=== PATIENT | female | born 1945 | race Caucasian/White ===

== ENCOUNTER → 2017-04-17 | Outpatient (CLI) | payer OTHER, MEDICARE ==
[~2017-04-17] MED LIST: ACYC400T PO; ANAS1TAB19 PO; ATV5 PO; BIOT1CAP3 PO; CALCIUM + D600 M1 PO; DILT-203 PO; IBUP-1450 PO; MULT-513 PO
--- NOTE | 2017-04-17 12:04 | DIAGNOSTIC IMAGING REPORT ---
CHEST 2 VIEWS ROUTINE CLINICAL HISTORY: 71 years-old Female presenting with COUGH, RECENT URI. TECHNIQUE: PA and lateral views of the chest were obtained. COMPARISON: 06/18/2016. FINDINGS: S shaped scoliotic curvature of the thoracolumbar spine resulting in stable curvature of the cardiomediastinal silhouette. Surgical clips project over the right lower lung. Lungs and pleural spaces clear. Lungs mildly hyperinflated. Radiodensities projecting over the epigastrium may be external to the patient. IMPRESSION: 1. No acute cardiopulmonary disease. Electronically signed by: Yunior Martin M.D. 04/17/2017 12:03 PM Dictated Date/Time: 04/17/2017 12:00 PM
== END | disposition home or self-care (01) ==
LOC: C.RADBC 11:14
PROVIDERS: ATTEND Nurse Practitioner
DX: Z87.09 Personal history of other diseases of the respiratory system (principal); R05 Cough

== ENCOUNTER 2017-12-06 08:00 | Emergency (ER) | payer OTHER, MEDICARE ==
[~2017-12-06] VITALS: Ht 163.8 cm; Wt 58.5 kg
[2017-12-06 08:02] VITALS: Ht 163.8 cm; Wt 58.5 kg
--- NOTE | 2017-12-06 08:31 | DIAGNOSTIC IMAGING REPORT ---
CT SCAN OF THE BRAIN WITHOUT IV CONTRAST CLINICAL HISTORY: Fall. COMPARISON STUDY: No priors. TECHNIQUE: Unenhanced axial CT scan of the brain is performed from the vertex to the skull base. A dose lowering technique was utilized adhering to the principles of ALARA. CT DOSE: 614.27 mGy.cm FINDINGS: Brain parenchyma: There are age-related involutional changes noting minimal subcortical and periventricular microangiopathic change. There is no hemorrhage, mass effect, or evidence of acute territorial ischemia by CT criteria. Davis-white matter is preserved. No extra-axial fluid collection is seen. Ventricles, sulci, cisterns: Prominent secondary to involutional change. Intracranial vasculature: There is mild atherosclerotic calcification of the cavernous carotid arteries. Calvarium: The skeletal structures are osteopenic. There is no depressed calvarial fracture. Soft tissues: There is minimal right frontoparietal scalp contusion. Sinuses and mastoids: The visualized paranasal sinuses are clear. The mastoid air cells are well pneumatized. Orbits: The bony orbits are grossly intact. There are bilateral ocular lens implants. IMPRESSION: There is no hemorrhage, mass effect, or evidence of acute territorial ischemia by CT criteria. Electronically signed by: Vladimir Arias M.D. 12/06/2017 8:29 AM Dictated Date/Time: 12/06/2017 8:26 AM
--- NOTE | 2017-12-06 08:48 | DIAGNOSTIC IMAGING REPORT ---
RIGHT ANKLE 3 VIEWS HISTORY: Right ankle pain. Fall/ankle injury COMPARISON: None. FINDINGS: Mildly displaced fracture at the distal shaft of the fifth metatarsal. Small old avulsion fracture at the dorsal aspect of the anterior talus. The distal tibia and fibula are intact. Small plantar heel spur. Soft tissue swelling within the ankle. No dislocation. No radiopaque foreign bodies. IMPRESSION: 1. Mildly displaced fracture at the distal shaft of the fifth metatarsal. 2. No acute fracture or dislocation within the right ankle. 3. Small old avulsion fracture at the dorsal aspect of the anterior talus. Electronically signed by: Evelio Ledezma M.D. 12/06/2017 8:47 AM Dictated Date/Time: 12/06/2017 8:44 AM
[2017-12-06] MEDS ORDERED: LORA-741 PO (08:58)
[2017-12-06] MEDS ORDERED: LSN20 PO (08:59)
--- NOTE | 2017-12-06 09:25 | EMERGENCY ROOM VISIT NOTE ---
ED Visit Note First contact with patient: 08:07 I have seen and examined this patient with Bhumi Montgomery and generally agree with the treatment plan as discussed. Problem List Medical Problems: (1) Breast cancer Status: Chronic (2) Malignant neoplasm of upper-inner quadrant of female breast Permanent Comment: Soft detected right breast mass Status post biopsy revealing lobular carcinoma status post lumpectomy and sentinel lymph node biopsy stage pT2 pN1aM0 Estrogen receptor positive, progesterone receptor positive, HER-2/roxanne equivocal Dose dense chemotherapy 4 cycles of Adriamycin and Cytoxan followed by 4 cycles of Taxol treated with Herceptin that continued until October 2014 Status post completion of radiation therapy 03/08/2014 received 5040 cGy Status: Resolved (3) Sinus tachycardia Status: Chronic (4) tenderness back Status: Chronic Current/Historical Medications Scheduled , 600 MG PO QAM Anastrozole (Arimidex), 1 MG PO DAILY Biotin (Biotin), 5,000 MCG PO QAM Diltiazem Hcl Coated Beads (Diltiazem Cd), 240 MG PO QAM Lisinopril (Lisinopril), 20 MG PO DAILY Multivitamins/Minerals (Mvi With Minerals), 1 TAB PO QAM Scheduled PRN Acyclovir (Acyclovir), 1 TAB PO TID PRN Ibuprofen (Motrin), 600 MG PO TID PRN for Pain Lorazepam (Ativan), 0.5 MG PO TID PRN for Anxiety Allergies Coded Allergies: Bacitracin (Verified Allergy, Intermediate, erythema, 12/06/17) Neomycin (Verified Allergy, Intermediate, erythema, 12/06/17) Polymyxin B (Verified Allergy, Intermediate, erythema, 12/06/17) Codeine (Verified Allergy, Unknown, ., 12/06/17) Adhesives (Verified Adverse Reaction, Intermediate, PRURITIS, 12/06/17) Vital Signs Date Time Temp Pulse Resp B/P (MAP) Pulse Ox O2 Delivery O2 Flow Rate FiO2 12/06/17 08:02 37.0 86 16 138/64 99 Room Air Departure Information Referrals Ian Dela Cruz M.D. (PCP) Patient Instructions My [facility]
--- NOTE | 2017-12-06 09:33 | EMERGENCY ROOM VISIT NOTE ---
History First contact with patient: 08:07 Chief Complaint: FALL Stated Complaint: FELL AND TWISTED ANKLE, HIT HEAD History of Present Illness The patient is a 72 year old female who presents to the Emergency Room with complaints of having a fall just prior to arrival. The patient states that she missed the bottom step and twisted her right ankle. She states she fell down and the right side of her head hit her rocking chair. The patient denies any dizziness or visual changes prior to the fall. The patient denies any loss of consciousness. The patient currently denies any headache, dizziness or visual changes. The patient denies any neck or back pain. The patient denies any head pain. She is mainly complaining of right ankle pain. She denies any numbness and tingling in her toes. The patient denies any knee or hip injury. The patient takes a baby aspirin daily. She is not on any other blood thinners. Review of Systems 10 system review was performed and was negative unless stated otherwise history of present illness. Past Medical/Surgical History Medical Problems: (1) Bilateral breast cancer (2) Breast cancer (3) Malignant neoplasm of upper-inner quadrant of female breast (4) Sinus tachycardia (5) tenderness back Social History Smoking Status: Former Smoker Current/Historical Medications Scheduled , 600 MG PO QAM Anastrozole (Arimidex), 1 MG PO DAILY Biotin (Biotin), 5,000 MCG PO QAM Diltiazem Hcl Coated Beads (Diltiazem Cd), 240 MG PO QAM Lisinopril (Lisinopril), 20 MG PO DAILY Multivitamins/Minerals (Mvi With Minerals), 1 TAB PO QAM Scheduled PRN Acyclovir (Acyclovir), 1 TAB PO TID PRN Ibuprofen (Motrin), 600 MG PO TID PRN for Pain Lorazepam (Ativan), 0.5 MG PO TID PRN for Anxiety Physical Exam Vital Signs Date Time Temp Pulse Resp B/P (MAP) Pulse Ox O2 Delivery O2 Flow Rate FiO2 12/06/17 08:02 37.0 86 16 138/64 99 Room Air Physical Exam GENERAL: 72-year-old white female appears in no acute distress. MENTAL Status: Alert and oriented 3. HEAD: Small area of ecchymosis noted to frontal to temporal region. Remainder of head is unremarkable. EYES: PERRLA. EOMs intact. EARS: Canals clear. TMs without hemotympanum NECK: Supple, no lymphadenopathy noted. No carotid bruits noted. LUNGS: Clear auscultation without wheezes rales or rhonchi. CARDIAC: Regular rate and rhythm without murmur. Pulses is full and equal throughout. SPINE: Entire spine nontender to palpation. NEURO:Cranial nerves two through 12 intact. Cerebellar function intact with [id number]. Fine motor intact with alternating finger motions. RIGHT ANKLE: No gross bony deformity noted. Edema noted over the lateral malleoli where she is tender to palpation. She is also tender to palpation over the anterior aspect of the ankle joint. Limited range of motion secondary to pain. Sensation is intact. Medical Decision & Procedures ER Provider Diagnostic Interpretation: RIGHT ANKLE 3 VIEWS HISTORY: Right ankle pain. Fall/ankle injury COMPARISON: None. FINDINGS: Mildly displaced fracture at the distal shaft of the fifth metatarsal. Small old avulsion fracture at the dorsal aspect of the anterior talus. The distal tibia and fibula are intact. Small plantar heel spur. Soft tissue swelling within the ankle. No dislocation. No radiopaque foreign bodies. IMPRESSION: 1. Mildly displaced fracture at the distal shaft of the fifth metatarsal. 2. No acute fracture or dislocation within the right ankle. 3. Small old avulsion fracture at the dorsal aspect of the anterior talus. Electronically signed by: Evelio Ledzema M.D. 12/06/2017 8:[address] SCAN OF THE BRAIN WITHOUT IV CONTRAST CLINICAL HISTORY: Fall. COMPARISON STUDY: No priors. TECHNIQUE: Unenhanced axial CT scan of the brain is performed from the vertex to the skull base. A dose lowering technique was utilized adhering to the principles of ALARA. CT DOSE: 614.27 mGy.cm FINDINGS: Brain parenchyma: There are age-related involutional changes noting minimal subcortical and periventricular microangiopathic change. There is no hemorrhage, mass effect, or evidence of acute territorial ischemia by CT criteria. Davis-white matter is preserved. No extra-axial fluid collection is seen. Ventricles, sulci, cisterns: Prominent secondary to involutional change. Intracranial vasculature: There is mild atherosclerotic calcification of the cavernous carotid arteries. Calvarium: The skeletal structures are osteopenic. There is no depressed calvarial fracture. Soft tissues: There is minimal right frontoparietal scalp contusion. Sinuses and mastoids: The visualized paranasal sinuses are clear. The mastoid air cells are well pneumatized. Orbits: The bony orbits are grossly intact. There are bilateral ocular lens implants. IMPRESSION: There is no hemorrhage, mass effect, or evidence of acute territorial ischemia by CT criteria. Electronically signed by: Vladimir Arias M.D. 12/06/2017 8:29 AM ED Course The patient was evaluated. Patient declined any pain medication. X-ray of the right ankle was ordered and interpreted by the radiologist the x-ray revealed a fracture of the distal right fifth metatarsal.. A CT of the head was ordered interpreted by the radiologist as above without any acute findings. The patient was informed of all findings. The patient was independently evaluated by Dr. Pate who agrees with treatment plan. The patient was placed in a postop shoe and given a walker. The sample case porter called Dr. Garcia's office to see if they could see her today in the office. She has been seen by them in the past. They were willing to see the patient immediately therefore she was discharged with instructions to go directly to their office. Medical Decision Differential diagnosis include intracranial bleed, head contusion, concussion Differential diagnosis include ankle fracture, blood fracture, foot contusion, ankle sprain [place] Drug Monitoring Program Search Results: patient reviewed within database Medication Reconcilliation Current Medication List: was personally reviewed by fl Blood Pressure Screening Patient's blood pressure: Normal blood pressure Impression Primary Impression: Fracture of fifth metatarsal bone of right foot Additional Impression: Head contusion Departure Information Dispostion Home / Self-Care Condition GOOD Referrals Ian Dela Cruz M.D. (PCP) Darius Barrera M.D. Forms HOME CARE DOCUMENTATION FORM, IMPORTANT VISIT INFORMATION Patient Instructions My [facility] Additional Instructions Go directly to Dr. Garcia's office for further evaluation and treatment. Problem Qualifiers Primary Impression: Fracture of fifth metatarsal bone of right foot Encounter type: initial encounter Fracture type: closed Fracture alignment : nondisplaced Qualified Codes: S92.354A - Nondisplaced fracture of fifth metatarsal bone, right foot, initial encounter for closed fracture Additional Impression: Head contusion Encounter type: initial encounter Contusion of head detail: scalp Qualified Codes: S00.03XA - Contusion of scalp, initial encounter
[2017-12-06 09:46] VITALS: BP 138/64; PULSE 86; TEMP 37; O2SAT 99
== END 2017-12-06 09:47 | disposition home or self-care (01) ==
LOC: C.EDB 08:01 → C.EDA 09:47
DX: S92.354A Nondisplaced fracture of fifth metatarsal bone, right foot, initial encounter for closed fracture (principal); S00.03XA Contusion of scalp, initial encounter; W10.9XXA Fall (on) (from) unspecified stairs and steps, initial encounter; X50.1XXA Overexertion from prolonged static or awkward postures, initial encounter; W22.8XXA Striking against or struck by other objects, initial encounter; Z85.3 Personal history of malignant neoplasm of breast; Z87.891 Personal history of nicotine dependence; Z98.890 Other specified postprocedural states

== ENCOUNTER 2019-05-13 08:22 | Inpatient (IN) ==
--- NOTE | 2019-04-07 16:31 | PAT Medication Instructions ---
Medication Instructions Date of Service April 07, 2019 Home Medications anastrozole 1 mg PO QAM biotin 10,000 mcg PO QAM calcium carbonate-vitamin D3 1 cap PO QAM diclofenac sodium 50 mg PO TID diltiazem HCl 240 mg PO QAM docusate sodium [Stool Softener] 100 mg PO QPM geriatric [id number] [Spectravite Senior] 1 tab PO QAM lisinopril 20 mg PO QAM lorazepam 1 mg PO DAILY PRN polyethylene glycol 3350 [Miralax] 17 g PO UD ASK your surgeon for instructions diclofenac sodium 50 mg PO TID ASK your prescriber and surgeon anastrozole 1 mg PO QAM DO NOT take the morning of surgery biotin 10,000 mcg PO QAM calcium carbonate-vitamin D3 1 cap PO QAM geriatric [id number] [Spectravite Senior] 1 tab PO QAM lisinopril 20 mg PO QAM polyethylene glycol 3350 [Miralax] 17 g PO UD Take morning of surgery With a small sip of water, OTHERWISE NOTHING TO EAT OR DRINK AFTER MIDNIGHT: diltiazem HCl 240 mg PO QAM lorazepam 1 mg PO DAILY PRN (if needed) Take evening before surgery docusate sodium [Stool Softener] 100 mg PO QPM lorazepam 1 mg PO DAILY PRN (if needed) polyethylene glycol 3350 [Miralax] 17 g PO UD (if needed) Other Notes If you have any questions please call us at [phone] or [phone] or [phone] or [phone]
--- NOTE | 2019-04-08 14:12 | Anesthesiology Consultation ---
Date of Service April 08, 2019 Assessment & Plan (1) Encounter for pre-operative examination: Possible difficult spinal 2/2 scoliosis. On exam, scoliosis and scar from intervention (when pt was age 10) appear above level needed for SAB. Pt educated regarding SAB vs general anesthesia. Chart Review Chart Review: Acceptable Risk for Surgery and Patient seen in Pre Admission Testing Teaching & Discussion Instructed NPO after midnight before surgery, except medications with 15 cc of water. Medication instructions provided according to the PAT guidelines. History Surgery Operation Date: 05/13/19 07:15 Proposed Procedures p Left Total Hip Arthroplasty - Darius Barrera MD Height/Weight Height: 5 ft 4.6 in Weight: 60.4 kg Allergies Allergy/AdvReac Type Severity Reaction Status Date / Time bacitracin Allergy Intermediate erythema Verified 04/03/19 15:28 neomycin Allergy Intermediate erythema Verified 04/03/19 15:28 polymyxin B Allergy Intermediate erythema Verified 04/03/19 15:28 codeine Allergy Unknown . Verified 04/03/19 15:28 adhesive AdvReac Intermediate PRURITIS Verified 04/03/19 15:28 Medications Home Medications Medication Instructions Recorded Confirmed Last Taken anastrozole 1 mg PO QAM 04/03/19 04/03/19 Unknown biotin 10,000 mcg PO QAM 04/03/19 04/03/19 Unknown calcium carbonate-vitamin D3 1 cap PO QAM 04/03/19 04/03/19 Unknown [Calcium 600 + D(3)] diclofenac sodium 50 mg PO TID 04/03/19 04/03/19 Unknown diltiazem HCl 240 mg PO QAM 04/03/19 04/03/19 Unknown docusate sodium [Stool Softener] 100 mg PO QPM 04/03/19 04/03/19 Unknown geriatric [id number] 1 tab PO QAM 04/03/19 04/03/19 Unknown [Spectravite Senior] lisinopril 20 mg PO QAM 04/03/19 04/03/19 Unknown lorazepam 1 mg PO DAILY PRN 04/03/19 04/03/19 Unknown polyethylene glycol 3350 [Miralax] 17 g PO UD 04/03/19 04/03/19 Unknown acetaminophen [Arthritis Pain 650 mg PO Q8 PRN 04/08/19 04/08/19 Unknown Reliever] alendronate [Fosamax] 70 mg PO WK 04/08/19 04/08/19 Unknown ranitidine HCl [Acid Optical Instrument Repairer 150 mg PO DAILY 04/08/19 04/08/19 Unknown (ranitidine)] Past Medical History Medical History Acid reflux Anxiety Constipation HTN (hypertension) History of breast cancer S/P LUMPECTOMY X 2. + CHEMO/RADTION History of melanoma Internal hemorrhoid Osteoarthritis Scoliosis Thoracic, s/p corrective surgery in 1950s Exercise / Class Metabolic Activity II 4-5 Yardwork/Stairs/Walk up hill (denies CP or SOB with 1 FOS) Past Surgical History Surgical History H/O wisdom tooth extraction History of cataract surgery History of colonoscopy History of dilatation and curettage History of left breast biopsy History of lumpectomy of left breast History of lumpectomy of right breast History of melanoma excision History of removal of cyst RT ELBOW History of right breast biopsy History of spinal fusion LUMBAR/THORACIC. s, to correct scoliosis. History of tonsillectomy and adenoidectomy History of tooth extraction History of tubal ligation Past Anesthesia History No Hx of Anesthesia Complications and No Family Hx of Anesthesia Complications PT REPORTS SYNCOPE FOLLOWING CHILDBIRTH (EPIDURAL) -- WAS ON THE DAY FOLLOWING DELIVERY, NOT IMMEDIATE REACTION TO EPIDURAL. History of PONV No Hx of PONV and No Hx of Motion Sickness Social History Smoking Status: Former smoker Smoking cigarettes per day: QUIT 40 YEARS AGO Do You Dip or Chew Tobacco: No Hx Alcohol Use: Yes Alcohol type: wine alcohol intake frequency: holidays/special occasions only Hx Substance Use: No substance use type: does not use Review of Systems Pt denies any recent chest pain, shortness of breath, palpitations, cough, fever or URI. Physical Exam Vital Signs BP: 145/77 P: 78bpm SPO2: 98% RA T: 98.2 F R: 16 ENMT Mouth: + dental restorations (few crowns); no chipped teeth and no loose teeth Thyromental Distance: > or= 3.5 Finger Breadths (3.5) Mallampati Class: II Neck normal visual inspection and + limited neck extension (mildly limited, denies neck pain) Respiratory normal respiratory effort Auscultation: lungs clear to auscultation bilaterally Cardiovascular Rate/Rhythm: regular rate and regular rhythm Heart Sounds: no murmur Extremities: no edema Musculoskeletal Spine: + scoliosis ~12 inch scar down midline thoracic area. Asymmetry of thoracic spine/shoulders. Scoliosis appears primarily above lumbar area. Testing Laboratory Results 04/08/19 14:30 04/08/19 14:30 PT 10.8 Seconds (9.0-12.0) 04/08/19 14:30 INR 1.1 (0.9-1.1) 04/08/19 14:30 APTT 23.6 Seconds (21.0-31.0) 04/08/19 14:30 Urine Color Yellow 04/08/19 14:30 Urine Appearance Clear (Clear) 04/08/19 14:30 Urine pH 5.5 (4.5-7.5) 04/08/19 14:30 Ur Specific [place] 1.018 (1.000-1.030) 04/08/19 14:30 Urine Protein Negative (Negative) 04/08/19 14:30 Urine Glucose (UA) Negative (Negative) 04/08/19 14:30 Urine Ketones Negative (Negative) 04/08/19 14:30 Urine Nitrite Negative (Negative) 04/08/19 14:30 Ur Leukocyte Esterase Negative (Negative) 04/08/19 14:30 Blood Type AB Positive 04/08/19 14:30 Antibody Screen NEGATIVE 04/08/19 14:30 Electrocardiogram Date: 04/08/19 Findings: + NSR @ (71) No significant change from 2003 EKG. Chest X-Ray Date: 04/08/19 FINDINGS: PA and lateral chest radiographs are compared to study dated 04/17/2017. Correlation is made with chest CT dated 07/17/2013. The cardiomediastinal silhouette is unremarkable. Chronic interstitial thickening is similar to previous. No airspace consolidation or pleural effusion is identified. There is no pneumothorax. The the skeletal structures are osteopenic. Degenerative change and moderate to severe scoliosis are noted in the thoracic spine. IMPRESSION: No active disease in the chest. Echocardiogram Date: 11/11/14 EF: 60% Limited to the study only to evaluate LV function during chemotherapy. Normal LV size and systolic function with no regional wall motion abnormalities. EF 60%. No LVH. Grade 1 diastolic dysfunction and left ventricle. Normal left atrial filling pressures suggested. Stress Test Date: 07/06/16 Negative stress EKG and echo for ischemia at 96% MPHR. Above average exercise tolerance for age and gender, 132% of predicted, achieving 7 METS. Baseline LVEF 60%.
--- NOTE | 2019-04-08 15:00 | XRay Report ---
TWO VIEW CHEST CLINICAL HISTORY: Preoperative examination. FINDINGS: PA and lateral chest radiographs are compared to study dated 04/17/2017. Correlation is made with chest CT dated 07/17/2013. The cardiomediastinal silhouette is unremarkable. Chronic interstiti al thickening is similar to previous. No airspace consolidation or pleural effusion is identified. Th ere is no pneumothorax. The the skeletal structures are osteopenic. Degenerative change and moderate to severe scoliosis are noted in the thoracic spine. IMPRESSION: No active disease in the chest. Electronically signed by: Vladimir Arias M.D. 04/08/2019 2:58 PM
[2019-04-08 15:15] LABS: Basophils # (auto) 0.02 K/uL (0-0.2); Basophils % (auto) 0.2 %; Eosinophils # (auto) 0.12 K/uL (0-0.5); Eosinophils % (auto) 1.4 %; Hematocrit (blood only) 35.1 % (37-47); Hemoglobin 11.6 g/dL (12.0-16.0); Immature Granulocytes # (auto) 0.02 K/uL (0.00-0.02); Immature Granulocytes % (auto) 0.2 %; Lymphocytes % (auto) 27.1 %; Mean Corpuscular Volume 84.4 fL (80-100); Mean Platelet Volume 9.5 fL (7.4-10.4); Monocytes % (auto) 5.9 %; Neutrophils # (auto) 5.52 K/uL (1.4-6.5); Neutrophils % (auto) 65.2 %; Platelet Count 297 K/uL (130-400); RDW Coefficient of Variation 13.9 % (11.5-14.5); RDW Standard Deviation 42.6 fL (36.4-46.3); Red Blood Count 4.16 M/uL (4.2-5.4); White Blood Count 8.48 K/uL (4.8-10.8)
[2019-04-08 15:21] LABS: BUN Creatinine Ratio 18.1 (10-20); Calcium 9.3 mg/dl (8.5-10.1); Creatinine Clr Calc Pharmacy 43.5 ml/min; Est GFR (African American) 64.6; Est GFR (Non-African American) 55.7; Potassium 4.8 mmol/L (3.5-5.1)
[2019-04-08 15:30] LABS: Appearance Urine Clear (Clear); Bilirubin Urine Negative (Negative); Blood Urine Negative (Negative); Color Urine Yellow; Glucose Urine UA Negative (Negative); Ketones Urine Negative (Negative); Leukocyte Esterase Urine Negative (Negative); Nitrite Urine Negative (Negative); Protein Urine Negative (Negative); Specific Gravity Urine 1.018 (1.000-1.030); Urobilinogen Urine Negative (Negative); pH Urine 5.5 (4.5-7.5)
[2019-04-08 15:36] LABS: INR 1.1 (0.9-1.1); Partial Thromboplastin Ratio 0.9; Partial Thromboplastin Time 23.6 Seconds (21.0-31.0); Prothrombin Time 10.8 Seconds (9.0-12.0)
--- NOTE | 2019-05-08 23:27 | History and Physical Report ---
DATE OF ADMISSION: 05/13/2019 CHIEF COMPLAINT: Left hip pain. HISTORY OF PRESENT ILLNESS: A 73-year-old female patient of Dr. Dela Cruz'khalida who presents for surgical treatment of her left hip. She has a several-year history of increasing left hip pain and discomfort that has gradually gotten worse over time. She does have a history of underlying scoliosis and had surgery done by Dr. Raymond in [place] many years ago. As far as her hips, she has been managed by Dr. Dela Cruz as well as Dr. Borden. She did have one intraarticular hip joint injection, which helped her several months. Pain has become more debilitating over time. She has difficulty walking any distance. She has groin and thigh pain. She takes diclofenac with minimal relief. She would now like to proceed with surgical treatment. PAST MEDICAL HISTORY: 1. Hypertension. 2. Breast cancer x2. 3. History of scoliosis. PAST SURGICAL HISTORY: Includes: 1. Scoliosis surgery many years ago in [place]. 2. Melanoma resection. 3. Breast lumpectomy x2. 4. T and A. 5. D and C x2. ALLERGIES: CODEINE AND POLYSPORIN. CURRENT MEDICINES: Include: 1. Lorazepam 0.5 mg 3 times a day for anxiety. 2. Acyclovir 400 mg 3 times a day for breakouts. 3. Anastrozole 1 mg a day. 4. Aspirin 81 mg. 5. Biotin. 6. Calcium with D. 7. Diclofenac. 8. Diltiazem 240 mg once a day. 9. Fluticasone nasal spray twice a day. 10. Hydrocortisone topical cream. 11. Lisinopril 20 mg twice a day. 12. Multivitamin. 13. Fosamax once a week. SOCIAL HISTORY: A 73-year-old female. She is . 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 Rare alcohol intake. FAMILY HISTORY: Significant for heart disease. REVIEW OF HISTORY: Negative for diabetes, neurologic problem, vascular problem, bleeding disorders. She does have this scoliosis history. No current chest pain or shortness of breath. No history of DVT or PE. PHYSICAL EXAMINATION: GENERAL: Shows a pleasant elderly female. Looks to be in pretty good health. HEENT: Benign. NECK: Supple, no lymphadenopathy. LUNGS: Clear to auscultation. HEART: Regular rate and rhythm. ABDOMEN: Soft, nontender, nondistended. EXTREMITIES: Grossly neurovascularly intact except as follows: Examination of left hip reveals the patient walks with a slight bit of a limp. Leg lengths are pretty equal. She does have a significant scoliotic curve to her spine. She has marked pain with any type of hip motion. She can internally rotate to -5 and externally rotate to about 25 degrees. Negative straight leg raise. X-RAYS: X-rays of the left hip were reviewed. Show advanced left hip DJD. She has got very concentric disease with osteophytes all around the femoral head and acetabulum. Bone density looks pretty good. ASSESSMENT: A 73-year-old white female with advanced left hip degenerative joint disease with a history of scoliosis. She has failed conservative treatment and would like to have her left hip replaced. PLAN: We will take her to the operating room and do a left total hip replacement. The risks and benefits of this procedure were explained to the patient including but not limited to DVT, PE, , infection, neurological injury, vascular injury, bleeding problem, pain, limited range of motion, stiffness, failure to relieve her symptoms, incomplete relief of symptoms, need for further surgery in the future, fracture, leg length inequality, nerve palsy, etc. The patient understands and desires to proceed. Informed consent was obtained. As far as discharge plans, she is hoping to be discharged to [facility] for a brief rehab stay. She will need some assistance for certain. We will have a cemented stem available if needed, but plan on an uncemented implant.
[~2019-05-13 08:22] MED LIST changes: +ACETAMINOPHEN 500 MG TAB PO SCH; -ACYC400T PO; -ANAS1TAB19 PO; -ATV5 PO; -BIOT1CAP3 PO; +BUPIVACAINE 0.5 % 5 MG/1 ML PF 10ML VIAL ONE; -CALCIUM + D600 M1 PO; +CEFAZOLIN 2000MG 2,000 MG/15 ML SYR IV SCH; -DILT-203 PO; +FAMOTIDINE 20 MG TAB PO SCH; -IBUP-1450 PO; +LR 500ML BOLUS, THEN 15ML/HR IV SCH; +LR 60ML/HR IV SCH; -MULT-513 PO
--- NOTE | 2019-05-13 08:54 | History & Physical Bridge Note ---
Date of Service May 13, 2019 History & Physical Bridge Note I have examined the patient, reviewed the History & Physical and in the interval since the performance of the History & Physical I have noted the following changes of clinical significance: no changes noted
[2019-05-13] MEDS ORDERED: MIDAZOLAM HCL 1 MG/ML 2ML VIAL ONE (09:21)
[2019-05-13] MEDS ORDERED: PROPOFOL IV EMULSION 10 MG/ML 20 ML VIAL IV ONE (09:21)
[2019-05-13] MEDS ORDERED: fentaNYL citrate 100 MCG/2 ML VIAL ONE (09:22)
[2019-05-13] MEDS ORDERED: BACITRACIN INJ 50,000 UNIT VIAL ONE (09:23)
[2019-05-13] MEDS ORDERED: BUPIVACAINE/EPINEPHRINE 0.5% MPF 1:200,000 30 ML VIAL ONE ×2 (09:23→10:57)
[2019-05-13] MEDS ORDERED: ONDANSETRON INJ 2 MG/ML 2 ML VIAL ONE (09:47)
[2019-05-13] MEDS ORDERED: MoRPHine SULFATE PF 1 MG/ML 10 ML AMP/VIAL ONE (09:48)
[2019-05-13] MEDS ORDERED: DiphenhydrAMINE HCL 50 MG/ML VIAL IV PRN (10:50)
[2019-05-13] MEDS ORDERED: MEPERIDINE HCL 25 MG/ML CARP IV PRN (10:50)
[2019-05-13] MEDS ORDERED: NALBUPHINE HCL INJ 10 MG/ML AMP IV PRN (10:50)
[2019-05-13] MEDS ORDERED: ePHEDrine sulfate 50 MG/ML AMP IV PRN (10:50)
[2019-05-13] MEDS ORDERED: PROMETHAZINE HCL 6.25 MG in SODIUM CHLORIDE 0.9% 50 ML IV PRN (10:50)
[2019-05-13] MEDS ORDERED: NALOXONE HCL 1 MG in SODIUM CHLORIDE 0.9% 1000ML 1,000 ML IV PRN (10:50)
[2019-05-13] MEDS ORDERED: LACTATED RINGER'S 500 ML IV PRN (10:50)
[2019-05-13] MEDS ORDERED: NALOXONE HCL 0.08 MG in SYRINGE 1.8 ML IV PRN (10:50)
[2019-05-13] MEDS ORDERED: KETOROLAC TROMETHAMINE 15 MG/ML VIAL IV PRN (10:50)
[2019-05-13] MEDS ORDERED: NALOXONE HCL 0.4 MG/1 ML VIAL/CARP IV PRN (10:50)
[2019-05-13] MEDS ORDERED: MoRPHine SULFATE PF 1 MG/ML 10 ML AMP/VIAL INT SPINAL ONE (10:50)
[2019-05-13] MEDS ORDERED: DC INTRASPINAL MORPHINE SCH (11:00)
[2019-05-13] MEDS ORDERED: SODIUM CHLORIDE 0.9% 1000ML 1,000 ML IV SCH (11:00)
[2019-05-13] MEDS ORDERED: NO NARCOTICS OR SEDATIVES SCH (11:00)
[2019-05-13] MEDS ORDERED: ePHEDrine sulfate 50 MG/ML SYR ONE (11:23)
--- NOTE | 2019-05-13 12:23 | Post Operative Brief Note ---
PG Immediate Post Op with CF Date of Surgery May 13, 2019 Pre & Post Diagnosis Operation Date: 05/13/19 10:55 Pre-Op Diagnosis: Left Hip Degenerative Joint Disease Post-Op Diagnosis: Left Hip Degenerative Joint Disease Procedure Operation Date: 05/13/19 10:55 Actual Procedures p Left Total Hip Arthroplasty(Left) - Darius Barrera MD Surgeon Darius Barrera MD A R Collections Rep Yoly, PAC Estimated Blood Loss 200 Findings Consistent with Post-Op Diagnosis Fluids 1500 cc Specimens Specimen Description: A: Left Femoral Head Drains Dsouza Catheter Anesthesia Type Spinal MAC Complications none Disposition Accompanied Patient To Recovery: Yes Disposition: Recovery Room
--- NOTE | 2019-05-13 13:14 | XRay Report ---
XR hip 1V LT w pelvis CLINICAL HISTORY: 73 years-old Female presenting with IN PACU - A/P PELVIS and LATERAL HIP . TECHNIQUE: Single frontal view of the pelvis and crosstable lateral view of the left hip were obtaine d. COMPARISON: 10/06/2018. FINDINGS: There has been interval total left hip arthroplasty. Overlying skin leroy and associated soft tissu e emphysema. No malalignment or periprosthetic fracture. Visualized portion of bony pelvis intact. Ri ght hip joint congruent with mild degenerative change. Calcification in the pelvis likely relates to a degenerated fibroid. IMPRESSION: Expected postsurgical appearance status post total left hip arthroplasty. Electronically signed by: Yunior Martin M.D. 05/13/2019 1:12 PM
[2019-05-13] MEDS ORDERED: BISACODYL 10 MG SUPP PR PRN (13:45)
[2019-05-13] MEDS ORDERED: MAGNESIUM HYDROXIDE SUSP 30 ML UDC PO PRN (13:45)
[2019-05-13] MEDS ORDERED: ALUMINUM/MAGNESIUM SUSP 30 ML UDC PO PRN (13:45)
[2019-05-13] MEDS ORDERED: METOCLOPRAMIDE HCL INJ 5 MG/ML 2 ML VIAL IV PRN (13:45)
[2019-05-13] MEDS ORDERED: TAMSULOSIN HCL 0.4 MG CAP PO PRN (13:45)
[2019-05-13] MEDS: ONDANSETRON INJ 2 MG/ML 2 ML VIAL IV PRN ×2 (13:56→20:48)
[2019-05-13] MEDS: SODIUM CHLORIDE 0.9% 1000ML 1,000 ML IV SCH ×2 (15:07→23:57)
--- NOTE | 2019-05-13 15:28 | Anesthesiology Progress Note ---
Date of Service May 13, 2019 Anesthesia Post Procedure Vital Signs Vital Signs: Temp Pulse Pulse Resp BP Pulse Ox 05/13/19 15:18 20 97 05/13/19 14:32 72 16 128/77 98 05/13/19 14:30 16 98 05/13/19 14:04 73 16 135/76 98 05/13/19 13:30 36.5 C 89 18 138/72 97 05/13/19 13:10 36.3 C L 76 16 135/58 L 97 05/13/19 12:55 78 18 127/58 L 99 05/13/19 12:45 72 12 133/54 L 98 05/13/19 12:35 82 19 129/54 L 98 05/13/19 12:26 36.0 C L 85 16 125/49 L 99 05/13/19 09:17 37 C 86 18 156/73 H 97 Transfer of Care Handoff Completed per policy Notes Mental Status: alert / awake / arousable Patient Amnestic to Procedure: Yes Nausea / Vomiting: adequately controlled Pain: adequately controlled Airway Patency, RR, SpO2: stable & adequate BP & HR: stable & adequate Hydration State: stable & adequate Anesthetic Complications: no major complications apparent
--- NOTE | 2019-05-13 16:06 | Progress Note ---
DATE: 05/13/2019 SUBJECTIVE: A 73-year-old white female postop from a left hip replacement. She is doing pretty well. Not much pain. No chest pain or shortness of breath. Not feeling dizzy or lightheaded. OBJECTIVE: VITAL SIGNS: Temperature 36.5. Vital signs are stable. GENERAL: Physical examination shows a pleasant, middle-aged female. She is lying in bed. She looks reasonably comfortable. LUNGS: Clear to auscultation. HEART: Has a regular rate and rhythm. ABDOMEN: Soft, nontender, nondistended. EXTREMITIES: Grossly neurovascularly intact except as follows: Examination of the left hip reveals the leg lengths to be equal. Dressing is clean, dry and intact. Thigh is soft and supple. She is neurologically intact. X-RAYS: X-rays of the left hip from recovery room reviewed. It shows left uncemented total hip arthroplasty. Components looked to be in good position. No signs of problems. ASSESSMENT: A 73-year-old white female postop from a left hip replacement, doing pretty well. Pain is controlled. She is neurologically intact. Hip is located. PLAN: 1. DVT prophylaxis including thigh-high TEDs, SCDs, and aspirin twice a day. 2. PT/OT. Weight bear as tolerated. Left total hip protocol. 3. Pain control, doing okay with current pain regimen. 4. IV antibiotics x24 hours. 5. Disposition: She is hoping to be discharged to rehab facility. We will have social service working on this tomorrow morning.
[2019-05-13] MEDS: KETOROLAC TROMETHAMINE 15 MG/ML VIAL IV SCH ×2 (16:19→21:35)
[2019-05-13] MEDS: ACETAMINOPHEN 500 MG TAB PO SCH ×2 (16:19→22:54)
[2019-05-13] MEDS: FERROUS GLUCONATE 324 MG TAB PO SCH (17:59)
[2019-05-13] MEDS: ASCORBIC ACID 500 MG TAB PO SCH (18:00)
[2019-05-13] MEDS ORDERED: TRANEXAMIC ACID 1,000 MG in 0.9 % SODIUM CHLORIDE 100 ML IV SCH (18:25)
[2019-05-13] MEDS: CEFAZOLIN 1000MG 1,000 MG/7.5 ML SYR IV SCH (19:12)
[2019-05-13] MEDS: ASPIRIN 81 MG ECTAB PO SCH (20:30)
[2019-05-13] MEDS: SENNA 8.6 MG TAB PO SCH (20:31)
[2019-05-13] MEDS: DOCUSATE SODIUM 100 MG CAP PO SCH (20:31)
[2019-05-13] MEDS ORDERED: NON-FORMULARY MEDICATION (Docusate Sodium [Stool Softener] 100 MG) PO SCH (21:00)
--- NOTE | 2019-05-13 23:29 | Operative Report ---
DATE OF OPERATION: 05/13/2019 SURGEON: Darius Barrera MD NON LICENSED NUCLEAR EQUIPMENT OPERATOR: SARA Cisneros PREOPERATIVE DIAGNOSIS: Left hip degenerative joint disease. POSTOPERATIVE DIAGNOSIS: Left hip degenerative joint disease. PROCEDURE PERFORMED: Left uncemented ceramic on highly cross-linked polyethylene total hip arthroplasty. COMPLICATIONS: None. ESTIMATED BLOOD LOSS: 200 mL. FLUID REPLACEMENT: 1500 mL crystalloid fluid replacement. ANESTHESIA: Spinal. DRAINS: None. SPECIMENS: Left femoral head sent for pathology. OPERATIVE INDICATIONS: The patient is a 73-year-old female who has had a several-year history of increasing left hip pain and discomfort. She has been treated by Dr. Dela Cruz as well as Dr. Borden over the years. She did have an intraarticular hip joint injection which helped her significantly for several months. She continues to be debilitated by her hip pain. She has severe scoliosis with a history of a surgery many years ago. After extensive conservative care, she elected to proceed with a left total hip arthroplasty. She was fully aware this was not going to fix her back problems. OPERATIVE FINDINGS: Operative findings revealed advanced left hip DJD. 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 OPERATIVE IMPLANTS: Operative implants consisted of: 1. A Biomet G7 size 50 mm acetabular shell. 2. A 6.5 cancellous acetabular screws, one at 35 mm in length and one at 30 mm in length. 3. An apex hole eliminator. 4. A Biomet highly cross-linked polyethylene liner with a 50 mm outer diameter, 36 mm inner diameter with a alonzo placed inferior and posterior. 5. DePuy Corail size 10 KLA femoral stem. 6. A +1.5/36 mm ceramic articular ball. OPERATIVE PROCEDURE: The patient was taken to the operating room, identified and placed on the operating table in supine position. All contact areas were appropriately padded. IV antibiotics were provided by anesthesia team. A spinal anesthetic had been implemented in the holding area. Dsouza catheter was placed in sterile fashion. The patient was then placed in the right lateral decubitus position. An axillary roll was placed. [facility] was used for positioning. The left hip and leg were then prepped and draped in the usual sterile fashion. A posterolateral approach to the left hip was then performed through a curvilinear incision centered over the greater trochanter. Sharp dissection was carried through the subcutaneous tissue down to the level of the IT band and gluteal fascia. The IT band and gluteal fascia were then incised longitudinally in line with the skin incision. The underlying greater trochanteric bursa was excised. The piriformis and external rotators were tagged and taken off the posterior aspect of the hip joint capsule. Great care was taken throughout the procedure to protect the sciatic nerve at all times. A posterior capsulotomy was then performed leaving a large flap for later repair. Hip was internally rotated and dislocated. Femoral neck osteotomy cut was made with final cut about 4 mm above the lesser trochanter. Femoral head was removed and sent for pathology. The femur was retracted anteriorly. Attention was then drawn to the acetabulum. The acetabulum labrum was excised. The pulvinar fat was excised. I then very carefully reamed the acetabulum as there was not much in the way of a medial wall remaining. I gently reamed up to a size 49. I then just touched the opening with a size 50 reamer so I could insert the cup. A 50 mm Biomet G7 acetabular shell was then placed in about 40 degrees of lateral opening and 15-20 degrees of anteversion. This did not quite seat the whole way down, but I did not feel I could compact it any further for fear of breaking her pelvis. We had good interference fit. The cup was then fixed with two 6.5 cancellous acetabular screws. A trial liner was placed. Attention was then drawn to the femur. The proximal femur was entered with a cookie cutter followed by canal finder. I then broached beginning with a size 8 and progressing up to a 10. I got good fit with the 10. Calcar reamer was used to smoothen off the calcar. I then trialed the hip and the +5 articular ball just seemed to recreate too tight a soft tissue tension. With a +1.5 articular ball, the leg lengths appeared equal, the hip was stable, and the soft tissue tension seemed improved. It was still just a little bit tight in extension. I elected to place these implants. I did place a alonzo inferior and posterior to maximize her stability in flexion as she did seem to have some levering out. This was bony impingement beyond the acetabulum. All trial implants were removed. A highly cross-linked polyethylene liner with a alonzo placed inferior and posterior was placed. A DePuy size 10 KLA Corail femoral stem was impacted in position. A +1.5/36 mm articular ball was placed. Hip was located and once again found to be stable. Attention was then drawn toward closing. The posterior capsule and external rotators were then repaired through drill holes in the posterior trochanter with #2 Ti-Cron suture. The IT band and gluteal fascia were then closed with #1 PDS suture in running fashion. The subcutaneous tissues were then closed in 2 layers with the deep layer with #1 Vicryl suture and the subcutaneous tissues with 2-0 Dexon suture in a buried interrupted fashion. Skin was closed with skin leroy. Leg was then cleaned, dried, and a sterile dressing of Xeroform, 4 x 4, sterile ABD pad, and foam tape was applied. The patient was then transferred to the recovery room in stable condition. The patient tolerated the procedure well with no complication. All needle and sponge counts were correct at the end of the operation. I attest to the content of the Intraoperative Record and any orders documented therein. Any exception s are noted below.
[2019-05-14] MEDS: CEFAZOLIN 1000MG 1,000 MG/7.5 ML SYR IV SCH (03:02)
[2019-05-14] MEDS: KETOROLAC TROMETHAMINE 15 MG/ML VIAL IV SCH ×4 (03:47→21:37)
[2019-05-14] MEDS ORDERED: HYDROmorphone INJ 0.5 MG/0.5 ML SYR IV PRN (04:51)
[2019-05-14] MEDS ORDERED: LORazepam 1 MG TAB PO PRN (04:51)
[2019-05-14] MEDS ORDERED: NALOXONE HCL 0.4 MG/1 ML VIAL/CARP IV PRN (04:51)
[2019-05-14] MEDS ORDERED: ONDANSETRON INJ 2 MG/ML 2 ML VIAL IV PRN (04:51)
[2019-05-14] MEDS ORDERED: TRAMADOL HCL 50 MG TABLET PO PRN (04:51)
[2019-05-14] MEDS ORDERED: Nursing to Pharmacy Communication ONE (05:07)
[2019-05-14 08:09] LABS: Basophils # (auto) 0.01 K/uL (0-0.2); Basophils % (auto) 0.1 %; Eosinophils # (auto) 0.01 K/uL (0-0.5); Eosinophils % (auto) 0.1 %; Hemoglobin 9.5 g/dL (12.0-16.0); Immature Granulocytes # (auto) 0.01 K/uL (0.00-0.02); Immature Granulocytes % (auto) 0.1 %; Lymphocytes % (auto) 10.9 %; Mean Corpuscular Hgb Conc 32.8 g/dL (32-36); Mean Corpuscular Volume 83.3 fL (80-100); Mean Platelet Volume 9.2 fL (7.4-10.4); Monocytes # (auto) 1.06 K/uL (0.11-0.59); Monocytes % (auto) 10.5 %; Neutrophils # (auto) 7.89 K/uL (1.4-6.5); Neutrophils % (auto) 78.3 %; Platelet Count 214 K/uL (130-400); RDW Coefficient of Variation 14.4 % (11.5-14.5); RDW Standard Deviation 43.5 fL (36.4-46.3); Red Blood Count 3.48 M/uL (4.2-5.4); White Blood Count 10.08 K/uL (4.8-10.8)
--- NOTE | 2019-05-14 08:18 | Progress Note ---
DATE: 05/14/2019 SUBJECTIVE: A 73-year-old white female postop day 1 from a left hip replacement. She is doing pretty well. Pain is controlled. No chest pain or shortness of breath. Not feeling dizzy or lightheaded. OBJECTIVE: VITAL SIGNS: Temperature 37.2. Vital signs stable. GENERAL: Physical examination shows a pleasant elderly female. Lying in bed, this morning ate some applesauce. Looks comfortable. EXTREMITIES: Examination of the left hip reveals the dressing to be clean, dry and intact. Leg lengths were equal. Hip is located. She is neurologically intact. LABORATORY DATA: Labs are pending. ASSESSMENT: A 73-year-old white female postop day 1 from a left hip replacement, doing pretty well. Pain is controlled. She is neurologically intact. Hip is located. PLAN: 1. DVT prophylaxis including thigh-high TEDs, SCDs, and aspirin twice a day. 2. PT/OT. Weight bear as tolerated. Left total hip protocol. 3. Pain control, doing okay with current pain regimen. 4. Disposition: She is hoping to be discharged to [facility] for rehab stay. We will have director of perioperative services working on that this morning.
[2019-05-14 08:38] LABS: BUN Creatinine Ratio 21.3 (10-20); Calcium 7.5 mg/dl (8.5-10.1); Creatinine Clr Calc Pharmacy 65.6 ml/min; Est GFR (African American) 101.2; Est GFR (Non-African American) 87.3; Potassium 3.9 mmol/L (3.5-5.1)
[2019-05-14] MEDS: dilTIAZem HCL 240 MG CAPCR PO SCH (08:55)
[2019-05-14] MEDS: ANASTROZOLE 1 MG TAB PO SCH (08:55)
[2019-05-14] MEDS: ACETAMINOPHEN 500 MG TAB PO SCH ×3 (08:55→23:29)
[2019-05-14] MEDS: ASCORBIC ACID 500 MG TAB PO SCH ×2 (08:55→18:22)
[2019-05-14] MEDS: LISINOPRIL 20 MG TAB PO SCH (08:55)
[2019-05-14] MEDS: CALCIUM 600MG + VIT D 400 IU TAB PO SCH (08:56)
[2019-05-14] MEDS: ASPIRIN 81 MG ECTAB PO SCH ×2 (08:56→20:24)
[2019-05-14] MEDS: MULTIVITAMIN TAB PO SCH (08:56)
[2019-05-14] MEDS: FERROUS GLUCONATE 324 MG TAB PO SCH ×2 (08:56→18:22)
[2019-05-14] MEDS: DOCUSATE SODIUM 100 MG CAP PO SCH ×2 (08:56→20:24)
[2019-05-14] MEDS ORDERED: [UNRECOGNIZED DRUG - OTHER] PO SCH (09:00)
[2019-05-14] MEDS ORDERED: POLYETHYLENE (MIRALAX) 17 GM PACK PO SCH (09:00)
[2019-05-14] MEDS ORDERED: NON-FORMULARY MEDICATION (Biotin 10,000 MCG) PO SCH (09:00)
[2019-05-14] MEDS: SENNA 8.6 MG TAB PO SCH (20:24)
[2019-05-15] MEDS: KETOROLAC TROMETHAMINE 15 MG/ML VIAL IV SCH ×2 (03:14→10:02)
[2019-05-15] MEDS: ASPIRIN 81 MG ECTAB PO SCH (08:40)
[2019-05-15] MEDS: dilTIAZem HCL 240 MG CAPCR PO SCH (08:40)
[2019-05-15] MEDS: ANASTROZOLE 1 MG TAB PO SCH (08:40)
[2019-05-15] MEDS: ASCORBIC ACID 500 MG TAB PO SCH (08:41)
[2019-05-15] MEDS: LISINOPRIL 20 MG TAB PO SCH (08:41)
[2019-05-15] MEDS: FERROUS GLUCONATE 324 MG TAB PO SCH (08:41)
[2019-05-15] MEDS: MULTIVITAMIN TAB PO SCH (08:41)
[2019-05-15] MEDS: DOCUSATE SODIUM 100 MG CAP PO SCH (08:41)
[2019-05-15] MEDS: CALCIUM 600MG + VIT D 400 IU TAB PO SCH (08:41)
[2019-05-15] MEDS: ACETAMINOPHEN 500 MG TAB PO SCH (08:44)
--- NOTE | 2019-05-15 11:49 | Progress Note ---
DATE: 05/15/2019 SUBJECTIVE: A 73-year-old white female postop day 2 from a left hip replacement. She is doing pretty well. She still has some intermittent nausea, but pain is controlled. No chest pain or shortness of breath. Not feeling dizzy or lightheaded. OBJECTIVE: VITAL SIGNS: Temp 37.3. Vital signs stable. GENERAL: Shows a pleasant elderly female, who is sitting up in her bedside chair, eating breakfast. MUSCULOSKELETAL: Examination of left hip reveals the dressing to be clean, dry and intact. Leg lengths are equal. Thigh is soft and supple. She is neurologically intact. Hip is located. ASSESSMENT: A 73-year-old white female postop day 2 from left hip replacement, doing well. Pain is controlled. Hip is located. She is neurologically intact. PLAN: 1. DVT prophylaxis including thigh-high TEDs, SCDs, and aspirin twice a day. 2. PT/OT. Weight bear as tolerated. Left total hip protocol. 3. Pain control, doing well with current pain regimen. 4. Disposition. She is hoping to be discharged to [facility]. We will get her there hopefully today if bed available and insurance approval.
--- NOTE | 2019-05-19 15:37 | Discharge Summary ---
ADMITTING PHYSICIAN AND SURGEON: Dr. Darius Barrera. ADMITTING DIAGNOSIS: Left hip degenerative joint disease. SURGERY PERFORMED: Left total hip arthroplasty. SECONDARY DIAGNOSES: Hypertension, breast cancer, history of scoliosis. CONSULTS: None obtained. HISTORY AND PHYSICAL EXAMINATION: Well documented in the patient's chart. HOSPITAL COURSE: The patient was admitted on 05/13/2019, underwent total hip arthroplasty. She was tolerated the procedure well. There were no complications. She was transferred to the PACU postoperatively and later to the orthopedic floor for further care. She was given Ancef for antibiotic prophylaxis, KAT stockings, SCDs and aspirin for DVT prophylaxis. Hemoglobin, hematocrit and vital signs were monitored during her hospital stay and remained stable. She did not require any blood transfusions. There were no complications. By postoperative day 2, she was tolerating a regular diet, pain was controlled with oral pain medicine. She was participating in physical therapy. Postop day 2, she was transferred to rehab facility. She was given printed discharge instructions including new prescriptions for extra-strength Tylenol, aspirin, iron supplement and tramadol. Continue her home medications with the exception of her home dose of Tylenol, which was changed. Continue physical therapy, weightbearing as tolerated, KAT stockings, total hip precautions. Follow up approximately 2 weeks postop or sooner if there are any problems or concerns.
== END 2019-05-15 13:21 | DRG 470 ==
LOC: ASU 08:22 → 3E 12:24

== ENCOUNTER 2020-06-11 12:04 | Inpatient (IN) ==
[2020-06-11] MEDS ORDERED: SODIUM CHLORIDE 0.9% 1000ML 500 ML IV ONE (12:59)
[2020-06-11 14:29] LABS: Appearance Urine Clear (Clear); Bilirubin Urine Negative (Negative); Blood Urine 2+ (Negative); Color Urine Yellow; Glucose Urine UA Negative (Negative); Ketones Urine 3+ (Negative); Leukocyte Esterase Urine Negative (Negative); Nitrite Urine Negative (Negative); Protein Urine Negative (Negative); Specific Gravity Urine 1.015 (1.000-1.030); Urobilinogen Urine Negative (Negative)
[2020-06-11 14:33] LABS: Basophils # (auto) 0.01 K/uL (0-0.2); Basophils % (auto) 0.1 %; Hematocrit (blood only) 38.2 % (37-47); Hemoglobin 12.6 g/dL (12.0-16.0); Immature Granulocytes # (auto) 0.03 K/uL (0.00-0.02); Immature Granulocytes % (auto) 0.2 %; Lymphocytes # (auto) 1.17 K/uL (1.2-3.4); Lymphocytes % (auto) 9.5 %; Mean Corpuscular Hemoglobin 27.2 pg (25-34); Mean Corpuscular Volume 82.3 fL (80-100); Mean Platelet Volume 9.5 fL (7.4-10.4); Monocytes # (auto) 1.06 K/uL (0.11-0.59); Monocytes % (auto) 8.6 %; Neutrophils # (auto) 10.09 K/uL (1.4-6.5); Neutrophils % (auto) 81.6 %; Platelet Count 232 K/uL (130-400); RDW Coefficient of Variation 13.6 % (11.5-14.5); Red Blood Count 4.64 M/uL (4.2-5.4); White Blood Count 12.36 K/uL (4.8-10.8)
--- NOTE | 2020-06-11 14:41 | Emergency Department Note ---
History of Present Illness General Chief complaint: Breast Pain/Problems Stated complaint: RT BREAST PAIN Time Seen by Provider: 06/11/20 12:43 Source: patient Mode of arrival: ambulatory Limitations: no limitations History of Present Illness Maximum Pain Intensity: 8 This patient comes in after having pain in her right breast for a a day or so. She talked to her regular doctor earlier in the week when she had a fever. He told her to stay isolated and then she called back a day or so later in the order Beth test for Saturday. She has seen pain along the right lateral breast area that she says she feels like is outside the chest. She has not had a cough. No lower extremity pain or swelling. No dysuria or hematuria. No nausea vomiting diarrhea no change in taste or smell the breast area where it hurts is not been red or warm. she does have a history of breast cancer. Home Medications Home Medications Medication Instructions Recorded Confirmed Type Calcium 600 + D(3) 1 cap PO QAM 04/03/19 06/11/20 History anastrozole 1 mg PO QAM 04/03/19 06/11/20 History biotin 10,000 mcg PO QAM 04/03/19 06/11/20 History diltiazem HCl 240 mg PO QAM 04/03/19 06/11/20 History docusate sodium [Stool Softener] 100 mg PO QPM 04/03/19 06/11/20 History lisinopril 20 mg PO QAM 04/03/19 06/11/20 History lorazepam 1 mg PO DAILY PRN 04/03/19 06/11/20 History polyethylene glycol 3350 [Miralax] 17 g PO UD 04/03/19 06/11/20 History alendronate [Fosamax] 70 mg PO WK 04/08/19 06/11/20 History amoxicillin 500 mg tablet 2,000 mg PO ONCE #4 tab 11/04/19 06/11/20 Rx acetaminophen [Tylenol Extra 1,000 mg PO Q6H PRN 06/11/20 06/11/20 History Strength] [id number] carb-vit K 1 tab PO QAM 06/11/20 06/11/20 History [One-A-Day Womens Formula] Allergies Allergy/AdvReac Type Severity Reaction Status Date / Time bacitracin Allergy Intermediate erythema Verified 06/11/20 13:39 neomycin Allergy Intermediate erythema Verified 06/11/20 13:39 polymyxin B Allergy Intermediate erythema Verified 06/11/20 13:39 codeine Allergy Unknown . Verified 06/11/20 13:39 adhesive AdvReac Intermediate PRURITIS Verified 06/11/20 13:39 Past Med/Surg History Medical History (Updated 06/11/20 @ 18:25 by Yousif Bermudez MD) Acid reflux Anxiety Constipation History of breast cancer S/P LUMPECTOMY X 2. + CHEMO/RADTION History of melanoma HTN (hypertension) Internal hemorrhoid Osteoarthritis Scoliosis Thoracic, s/p corrective surgery in 1950s Surgical History H/O wisdom tooth extraction History of cataract surgery History of colonoscopy History of dilatation and curettage History of left breast biopsy History of lumpectomy of left breast History of lumpectomy of right breast History of melanoma excision History of removal of cyst RT ELBOW History of right breast biopsy History of spinal fusion LUMBAR/THORACIC. s, to correct scoliosis. 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 She had a lumpectomy in the left in 2009 and on the right she had a lumpectomy 2012 and had chemo and radiation. She is on hormonal treatment Review of Systems A total of 10 systems reviewed and were otherwise negative Physical Exam Vital Signs Vital Signs - 24 hr 06/11/20 12:06 06/11/20 13:45 06/11/20 14:08 Temperature 37.6 C H Temperature Source Oral Pulse Rate 110 H Pulse Rate [Left Finger] Respiratory Rate 20 Respiratory Effort / Characteristics Non-Labored Spontaneous Respiratory Depth Normal Respiratory Pattern Regular Blood Pressure 145/63 H Blood Pressure [Left Arm] Blood Pressure Mean 90 Blood Pressure Mean [Left Arm] Pulse Oximetry 96 96 96 Oxygen Delivery Method Room Air Room Air Room Air Sepsis Recent Fever Within 48 Hours Yes Sepsis New/Unexplained Change in Mental Status No Sepsis Action Taken by Nursing No Action Required 06/11/20 14:18 06/11/20 16:07 06/11/20 16:39 Temperature 39.2 C H Temperature Source Oral Pulse Rate Pulse Rate [Left Finger] 98 H 94 H 103 H Respiratory Rate 22 18 22 Respiratory Effort / Characteristics Respiratory Depth Respiratory Pattern Blood Pressure Blood Pressure [Left Arm] 161/75 H 151/65 H 170/74 H Blood Pressure Mean Blood Pressure Mean [Left Arm] 103 93 106 Pulse Oximetry 96 98 97 Oxygen Delivery Method Room Air Room Air Room Air Sepsis Recent Fever Within 48 Hours Sepsis New/Unexplained Change in Mental Status Sepsis Action Taken by Nursing 06/11/20 18:08 Temperature 38.2 C H Temperature Source Oral Pulse Rate Pulse Rate [Left Finger] 89 Respiratory Rate 20 Respiratory Effort / Characteristics Respiratory Depth Respiratory Pattern Blood Pressure Blood Pressure [Left Arm] 134/85 Blood Pressure Mean Blood Pressure Mean [Left Arm] 101 Pulse Oximetry 95 Oxygen Delivery Method Room Air Sepsis Recent Fever Within 48 Hours Sepsis New/Unexplained Change in Mental Status Sepsis Action Taken by Nursing General: Well developed well nourished older female who appears in no acute distress, breathing comfortably on room air. Normal speech HEENT: Normal cephalic atraumatic. Pupils are equal round and reactive to light. Extraocular movements are intact. Oropharynx is pink with moist mucous membranes. No swelling of the mouth lips or tongue. Neck: Supple with a midline trachea. No meningeal signs or stiffness, no JVD or bruits. No Stridor. Chest: Clear to auscultation bilaterally. No wheezes or rhonchi. No increased work of breathing. She points to the area in the right lateral chest/breast it is not red or warm or fluctuant. There is no tenderness focally. Heart: Regular rate and rhythm without murmurs or gallops. Abdomen: Soft nontender, nondistended without rebound guarding or rigidity. Extremities: No cyanosis clubbing or edema. No calf tenderness or assymetry Spine/Back. Non tender to palpation. No CVA tenderness Skin: Good turgor without rashes. Neurologic exam: Cranial nerves two through 12 are intact. Motor and sensation are intact and symmetrical throughout. Course Administered Medications Discontinued Medications Acetaminophen (Acetaminophen 500 Mg Tab) 1,000 mg PO NOW STA Stop: 06/11/20 16:43 Last Admin: 06/11/20 16:56 Dose: 1,000 mg Documented by: [id number] Sodium Chloride (Nss 1000ml) 500 mls @ 999 mls/hr IV .Q31M ONE Stop: 06/11/20 13:29 Last Infusion: 06/11/20 15:57 Dose: 0 mls/hr Documented by: [id number] Admin: 06/11/20 14:14 Dose: 999 mls/hr Documented by: [id number] Piperacillin Sod/Tazobactam Sod (Zosyn) 4.5 gm in 120 mls @ 240 mls/hr IV NOW ONE Stop: 06/11/20 17:37 Last Admin: 06/11/20 18:05 Dose: 240 mls/hr Documented by: [id number] Sodium Chloride (Nss 1000ml) 1,000 mls @ 999 mls/hr IV .Q1H1M ONE Stop: 06/11/20 18:12 Last Admin: 06/11/20 18:06 Dose: 999 mls/hr Documented by: [id number] Ioversol (Optiray 320 125ml) 64 ml IV ONCE ONE Stop: 06/11/20 16:28 Last Admin: 06/11/20 16:28 Dose: 64 ml Documented by: [id number] Medical Decision Making Differential Diagnosis Mastitis, COVID, pneumonia, cardiac disease, PE, pneumothorax, cancer complication, electrolyte or metabolic abnormality, viral illness, sepsis Medical Records Attestation: I reviewed the patient's medical records. Home Medications Current Medication List: was personally reviewed by me Laboratory Data Attestation: I reviewed the patient's lab results. Result diagrams: 06/11/20 14:10 06/11/20 14:10 Lab Results 06/11/20 06/11/20 06/11/20 Range/Units 14:10 14:10 14:10 WBC 12.36 H (4.8-10.8) K/uL RBC 4.64 (4.2-5.4) M/uL Hgb 12.6 (12.0-16.0) g/dL Hct 38.2 (37-47) % MCV 82.3 (80-100) fL MCH 27.2 (25-34) pg MCHC 33.0 (32-36) g/dL RDW Std Deviation 41.0 (36.4-46.3) fL RDW Coeff of Clair 13.6 (11.5-14.5) % Plt Count 232 (130-400) K/uL MPV 9.5 (7.4-10.4) fL Immature Gran % (Auto) 0.2 % Neut % (Auto) 81.6 % Lymph % (Auto) 9.5 % [place] % (Auto) 8.6 % Eos % (Auto) 0.0 % Baso % (Auto) 0.1 % Neut # (Auto) 10.09 H (1.4-6.5) K/uL Lymph # (Auto) 1.17 L (1.2-3.4) K/uL [place] # (Auto) 1.06 H (0.11-0.59) K/uL Eos # (Auto) 0.00 (0-0.5) K/uL Baso # (Auto) 0.01 (0-0.2) K/uL Immature Gran # (Auto) 0.03 H (0.00-0.02) K/uL PT 10.9 (9.0-12.0) Seconds INR 1.0 (0.9-1.1) APTT 25.6 (21.0-31.0) Seconds PTT Ratio 0.9 D-Dimer 540 H* (0-500) ug/L FEU Sodium 138 (136-145) mmol/L Potassium 3.8 (3.5-5.1) mmol/L Chloride 104 (98-107) mmol/L Carbon Dioxide 25 (21-32) mmol/L Anion Gap 10.0 (3-11) BUN 9 (7-18) mg/dl Creatinine 0.69 (0.6-1.2) mg/dl Est Cr Clr Drug Dosing 59.9 ml/min Est GFR ( Amer) 98.0 Est GFR (Non-Af Amer) 84.6 BUN/Creatinine Ratio 12.8 (10-20) Glucose 113 H (70-99) mg/dl Lactate (0.4-2.0) mmol/L Calcium 9.9 (8.5-10.1) mg/dl Magnesium 2.1 (1.8-2.4) mg/dl Total Bilirubin 0.4 (0.2-1) mg/dl AST 17 (15-37) U/L ALT 46 (12-78) U/L Alkaline Phosphatase 78 (45-117) U/L Troponin I < 0.015 (0-0.045) ng/ml Total Protein 7.6 (6.4-8.2) gm/dl Albumin 3.8 (3.4-5.0) gm/dl Globulin 3.8 (2.5-4.0) gm/dl Albumin/Globulin Ratio 1.0 (0.9-2) Urine Color Urine Appearance (Clear) Urine pH (4.5-7.5) Ur Specific [place] (1.000-1.030) Urine Protein (Negative) Urine Glucose (UA) (Negative) Urine Ketones (Negative) Urine Blood (Negative) Urine Nitrite (Negative) Urine Bilirubin (Negative) Urine Urobilinogen (Negative) Ur Leukocyte Esterase (Negative) Urine RBC (0-4) /hpf Urine WBC (0-5) /hpf Ur Epithelial Cells (0-5) /lpf Urine Bacteria (Negative) COVID-19 Eval Order COVID-19 PCR (Negative) Nasopharyn COVID-19 PCR 06/11/20 06/11/20 06/11/20 Range/Units 14:10 14:10 14:10 WBC (4.8-10.8) K/uL RBC (4.2-5.4) M/uL Hgb (12.0-16.0) g/dL Hct (37-47) % MCV (80-100) fL MCH (25-34) pg MCHC (32-36) g/dL RDW Std Deviation (36.4-46.3) fL RDW Coeff of Clair (11.5-14.5) % Plt Count (130-400) K/uL MPV (7.4-10.4) fL Immature Gran % (Auto) % Neut % (Auto) % Lymph % (Auto) % [place] % (Auto) % Eos % (Auto) % Baso % (Auto) % Neut # (Auto) (1.4-6.5) K/uL Lymph # (Auto) (1.2-3.4) K/uL [place] # (Auto) (0.11-0.59) K/uL Eos # (Auto) (0-0.5) K/uL Baso # (Auto) (0-0.2) K/uL Immature Gran # (Auto) (0.00-0.02) K/uL PT (9.0-12.0) Seconds INR (0.9-1.1) APTT (21.0-31.0) Seconds PTT Ratio D-Dimer (0-500) ug/L FEU Sodium (136-145) mmol/L Potassium (3.5-5.1) mmol/L Chloride (98-107) mmol/L Carbon Dioxide (21-32) mmol/L Anion Gap (3-11) BUN (7-18) mg/dl Creatinine (0.6-1.2) mg/dl Est Cr Clr Drug Dosing ml/min Est GFR ( Amer) Est GFR (Non-Af Amer) BUN/Creatinine Ratio (10-20) Glucose (70-99) mg/dl Lactate 1.1 (0.4-2.0) mmol/L Calcium (8.5-10.1) mg/dl Magnesium (1.8-2.4) mg/dl Total Bilirubin (0.2-1) mg/dl AST (15-37) U/L ALT (12-78) U/L Alkaline Phosphatase (45-117) U/L Troponin I (0-0.045) ng/ml Total Protein (6.4-8.2) gm/dl Albumin (3.4-5.0) gm/dl Globulin (2.5-4.0) gm/dl Albumin/Globulin Ratio (0.9-2) Urine Color Yellow Urine Appearance Clear (Clear) Urine pH 6.0 (4.5-7.5) Ur Specific [place] 1.015 (1.000-1.030) Urine Protein Negative (Negative) Urine Glucose (UA) Negative (Negative) Urine Ketones 3+ H (Negative) Urine Blood 2+ H (Negative) Urine Nitrite Negative (Negative) Urine Bilirubin Negative (Negative) Urine Urobilinogen Negative (Negative) Ur Leukocyte Esterase Negative (Negative) Urine RBC 5-10 H (0-4) /hpf Urine WBC 5-10 H (0-5) /hpf Ur Epithelial Cells 0-5 (0-5) /lpf Urine Bacteria Negative (Negative) COVID-19 Eval Order Covid[address] [facility] COVID-19 PCR (Negative) Nasopharyn COVID-19 PCR 06/11/20 06/11/20 06/11/20 Range/Units 14:10 14:10 14:10 WBC (4.8-10.8) K/uL RBC (4.2-5.4) M/uL Hgb (12.0-16.0) g/dL Hct (37-47) % MCV (80-100) fL MCH (25-34) pg MCHC (32-36) g/dL RDW Std Deviation (36.4-46.3) fL RDW Coeff of Clair (11.5-14.5) % Plt Count (130-400) K/uL MPV (7.4-10.4) fL Immature Gran % (Auto) % Neut % (Auto) % Lymph % (Auto) % [place] % (Auto) % Eos % (Auto) % Baso % (Auto) % Neut # (Auto) (1.4-6.5) K/uL Lymph # (Auto) (1.2-3.4) K/uL [place] # (Auto) (0.11-0.59) K/uL Eos # (Auto) (0-0.5) K/uL Baso # (Auto) (0-0.2) K/uL Immature Gran # (Auto) (0.00-0.02) K/uL PT (9.0-12.0) Seconds INR (0.9-1.1) APTT (21.0-31.0) Seconds PTT Ratio D-Dimer (0-500) ug/L FEU Sodium (136-145) mmol/L Potassium (3.5-5.1) mmol/L Chloride (98-107) mmol/L Carbon Dioxide (21-32) mmol/L Anion Gap (3-11) BUN (7-18) mg/dl Creatinine (0.6-1.2) mg/dl Est Cr Clr Drug Dosing ml/min Est GFR ( Amer) Est GFR (Non-Af Amer) BUN/Creatinine Ratio (10-20) Glucose (70-99) mg/dl Lactate (0.4-2.0) mmol/L Calcium (8.5-10.1) mg/dl Magnesium (1.8-2.4) mg/dl Total Bilirubin (0.2-1) mg/dl AST (15-37) U/L ALT (12-78) U/L Alkaline Phosphatase (45-117) U/L Troponin I (0-0.045) ng/ml Total Protein (6.4-8.2) gm/dl Albumin (3.4-5.0) gm/dl Globulin (2.5-4.0) gm/dl Albumin/Globulin Ratio (0.9-2) Urine Color Urine Appearance (Clear) Urine pH (4.5-7.5) Ur Specific [place] (1.000-1.030) Urine Protein (Negative) Urine Glucose (UA) (Negative) Urine Ketones (Negative) Urine Blood (Negative) Urine Nitrite (Negative) Urine Bilirubin (Negative) Urine Urobilinogen (Negative) Ur Leukocyte Esterase (Negative) Urine RBC (0-4) /hpf Urine WBC (0-5) /hpf Ur Epithelial Cells (0-5) /lpf Urine Bacteria (Negative) COVID-19 Eval Order Covid19 Done at [facility] COVID-19 PCR NEGATIVE (Negative) Nasopharyn COVID-19 PCR Cancelled Imaging Data Attestation: I personally reviewed and interpreted this imaging study as follows: Radiologist's Impression: XR chest 1V portable CLINICAL HISTORY: SEPSIS COMPARISON STUDY: 05/12/2020 FINDINGS: There is severe S-shaped thoracolumbar scoliosis. The heart is normal in size. There is no failure. There is no focal pulmonary consolidation. There are no pleural effusions.[There is a persistent nonspecific right apical opacity, likely representing apical scarring Surgical clips project over the right breast. IMPRESSION: 1. No change from the preceding study 2. Severe scoliosis 3. Stable right apical opacity likely representing apical scarring 4. No evidence of acute parenchymal consolidation CT ANGIOGRAM OF THE CHEST CLINICAL HISTORY: Right-sided chest pain. Fever. History of breast carcinoma. Possible pulmonary embolism. COMPARISON STUDY: 07/17/2013 TECHNIQUE: Following the IV administration of 64 mL of Optiray-320, CT angiogram of the thorax was performed from the thoracic inlet to the lung bases utilizing the pulmonary embolus protocol. Images are reviewed in the axial, sagittal, and coronal planes. IV contrast was administered without complication. MIP imaging was performed. A dose lowering technique was utilized adhering to the principles of ALARA. CT DOSE: 449.53 mGy.cm FINDINGS: Images to the upper abdomen reveal a partially visualized 29 mm left renal hypodensity. This exceeds water attenuation and is therefore indeterminate. Ultrasonographic evaluation is recommended in follow-up. There is a multinodular right lobe thyroid goiter containing multiple calcifications. No pathologically enlarged axillary mediastinal or hilar lymph nodes were visualized. There was no evidence of thoracic aortic dilatation. There were no pulmonary artery filling defects to indicate acute pulmonary embolism. There is a trace right pleural effusion. There is a 2.5 cm pleural-based opacity within the right lower lobe abutting the major fissure. There is inferior cavitation versus pneumatocele formation. There is mild basilar atelectatic change. There is right apical pleural/parench ymal scarring. There is a severe thoracolumbar scoliosis IMPRESSION: 1. 2.5 cm pleural-based opacity within the right lower lobe abutting the major fissure. There is inferior cavitation versus pneumatocele formation. An infectious/inflammatory lesion is favored over neoplasm. A one month follow-up CT scan is recommended. 2. Trace right pleural effusion 3. Multinodular right lobe thyroid goiter 4. Severe scoliosis 5. Partially visualized 29 mm left renal hypodense lesion. Ultrasound follow-up is recommended. 6. No evidence of acute pulmonary embolism ECG Data Attestation: I personally reviewed and interpreted this ECG as follows: Indication: + palpitations Rate (beats per minute): 99 Rhythm: + normal sinus ECG Intervals/blocks: + Normal QRS, + Normal QT and + Normal DC ECG [place]: + Normal ECG ST segments: + Normal ST segments Comparison ECG Date: from (04/08/19) Change: no significant change Blood Pressure Blood Pressure Findings: Elevated blood pressure Blood Pressure Disposition: elevated BP felt to be situational MDM Narrative This patient comes in as described above. She was placed in room B 10. She has had a fever and right-sided chest pain. She feels it is more in her breast. Is not been red or warm she has had no cough. She is had no COVID exposure but is scheduled for Beth test on Saturday. She looks well on my exam. IV access was established and multiple blood test was obtained. she had a sepsis and cardiac work-up and she was given IV fluids. EKG does not suggest acute coronary syndrome or arrhythmia and troponin is negative. Her symptoms are atypical for cardiac disease. Chest x-ray is unremarkable. Her d-dimer is mildly elevated. She has no significant electrolyte or metabolic abnormalities. With her d-dimer being elevated, I did do a CT of her chest. She was also COVID tested and kept on isolation here. Her chest CT shows a cavitary lesion in the right lung with likely infectious findings. She did spike a temperature 39 1 here and was given Tylenol for this. She tells me she been taking Tylenol every 4 hours at home to keep her fever down. She was given IV antibiotics with IV Zosyn IV vancomycin per our protocols. I discussed this with Iris, our ED pharmacist, who agrees with this plan. I did do a rapid COVID based on the fact that she has respiratory issues and is going to be admitted. Covid testing was negative. Continuous cardiac monitoring: An order was placed in the EMR for continuous ca rdiac monitoring. She was noted to have a pulse of 94 with normal sinus rhythm on the monitor Impression & Plan Pneumonia, Chest pain, History of bilateral breast cancer, Cavitary lesion of lung, COVID-19 ruled out by laboratory testing Discharge Plan Visit Data Chief Complaint: Breast Pain/Problems Stated Complaint: RT BREAST PAIN ED Provider: Yousif Bermudez Discharge Problem: Pneumonia, Chest pain, History of bilateral breast cancer, Cavitary lesion of lung, COVID-19 ruled out by laboratory testing Forms Stand Alone Forms: My [facility] Prescriptions Prescriptions: No Action amoxicillin 500 mg tablet 2,000 mg PO ONCE Qty: 4 RF: 2 One-A-Day Womens Formula 18 mg iron-400 mcg-500 mg Tablet 1 tab PO QAM RF: 0 acetaminophen [Tylenol Extra Strength] 500 mg Tablet 1,000 mg PO Q6H PRN (Reason: Pain) RF: 0 anastrozole 1 mg Tablet 1 mg PO QAM RF: 0 polyethylene glycol 3350 [Miralax] 17 gram Powder In Packet 17 g PO UD RF: 0 diltiazem HCl 240 mg Capsule,Extended Release 24hr 240 mg PO QAM RF: 0 lisinopril 20 mg Tablet 20 mg PO QAM RF: 0 biotin 10,000 mcg Capsule 10,000 mcg PO QAM RF: 0 lorazepam 1 mg Tablet 1 mg PO DAILY PRN (Reason: Anxiety) RF: 0 docusate sodium [Stool Softener] 100 mg Tablet 100 mg PO QPM RF: 0 Calcium 600 + D(3) 600 mg calcium- 200 unit Capsule 1 cap PO QAM RF: 0 alendronate [Fosamax] 70 mg Tablet 70 mg PO WK RF: 0 Discharge Problem: Pneumonia Qualifiers: Pneumonia type: due to unspecified organism Laterality: right Lung location: unspecified part of lung Qualified Code(s): J18.9 - Pneumonia, unspecified organism Chest pain Qualifiers: Chest pain type: unspecified Qualified Code(s): R07.9 - Chest pain, unspecified
[2020-06-11 14:43] LABS: Epithelial Cell Urine 0-5 /lpf (0-5)
[2020-06-11 14:44] LABS: Bacteria Urine Negative (Negative)
[2020-06-11 14:47] LABS: Partial Thromboplastin Ratio 0.9; Partial Thromboplastin Time 25.6 Seconds (21.0-31.0); Prothrombin Time 10.9 Seconds (9.0-12.0)
[2020-06-11 14:55] LABS: Alanine Aminotransferase 46 U/L (12-78); Albumin Level 3.8 gm/dl (3.4-5.0); Aspartate Aminotransferase 17 U/L (15-37); BUN Creatinine Ratio 12.8 (10-20); Blood Urea Nitrogen 9 mg/dl (7-18); Calcium 9.9 mg/dl (8.5-10.1); Carbon Dioxide 25 mmol/L (21-32); Chloride 104 mmol/L (98-107); Creatinine Clr Calc Pharmacy 59.9 ml/min; D Dimer 540 ug/L FEU (0-500); Est GFR (Non-African American) 84.6; Glucose 113 mg/dl (70-99); Magnesium 2.1 mg/dl (1.8-2.4); Potassium 3.8 mmol/L (3.5-5.1); Sodium 138 mmol/L (136-145)
--- NOTE | 2020-06-11 14:58 | XRay Report ---
XR chest 1V portable CLINICAL HISTORY: SEPSIS COMPARISON STUDY: 05/12/2020 FINDINGS: There is severe S-shaped thoracolumbar scoliosis. The heart is normal in size. There is no failure. There is no focal pulmonary consolidation. There are no pleural effusions.[There is a persis tent nonspecific right apical opacity, likely representing apical scarring Surgical clips project ove r the right breast. IMPRESSION: 1. No change from the preceding study 2. Severe scoliosis 3. Stable right apical opacity likely representing apical scarring 4. No evidence of acute parenchymal consolidation ACT 112: Negative or not required by law. Electronically signed by: Darryn Dee M.D. 06/11/2020 2:57 PM
[2020-06-11 15:01] LABS: Alkaline Phosphatase 78 U/L (45-117); Bilirubin,Total 0.4 mg/dl (0.2-1); Globulin 3.8 gm/dl (2.5-4.0); Total Protein 7.6 gm/dl (6.4-8.2); Troponin I < 0.015 ng/ml (0-0.045)
[2020-06-11] MEDS ORDERED: OPTIRAY 320 125ml IV ONE (16:27)
[2020-06-11] MEDS ORDERED: ACETAMINOPHEN 500 MG TAB PO STA (16:42)
--- NOTE | 2020-06-11 16:48 | CT Scan Report ---
CT ANGIOGRAM OF THE CHEST CLINICAL HISTORY: Right-sided chest pain. Fever. History of breast carcinoma. Possible pulmonary embo lism. COMPARISON STUDY: 07/17/2013 TECHNIQUE: Following the IV administration of 64 mL of Optiray-320, CT angiogram of the thorax was pe rformed from the thoracic inlet to the lung bases utilizing the pulmonary embolus protocol. Images ar e reviewed in the axial, sagittal, and coronal planes. IV contrast was administered without complicat ion. MIP imaging was performed. A dose lowering technique was utilized adhering to the principles of ALARA. CT DOSE: 449.53 mGy.cm FINDINGS: Images to the upper abdomen reveal a partially visualized 29 mm left renal hypodensity. This exceeds water attenuation and is therefore indeterminate. Ultrasonographic evaluation is recommended in follo w-up. There is a multinodular right lobe thyroid goiter containing multiple calcifications. No pathologically enlarged axillary mediastinal or hilar lymph nodes were visualized. There was no evidence of thoracic aortic dilatation. There were no pulmonary artery filling defects to indicate acute pulmonary embolism. There is a trace right pleural effusion. There is a 2.5 cm pleural-based opacity within the right lower lobe abutting the major fissure. There is inferior cavitation versus pneumatocele formation. There is mild basilar atelectatic change. Ther e is right apical pleural/parenchymal scarring. There is a severe thoracolumbar scoliosis IMPRESSION: 1. 2.5 cm pleural-based opacity within the right lower lobe abutting the major fissure. There is infe rior cavitation versus pneumatocele formation. An infectious/inflammatory lesion is favored over neop lasm. A one month follow-up CT scan is recommended. 2. Trace right pleural effusion 3. Multinodular right lobe thyroid goiter 4. Severe scoliosis 5. Partially visualized 29 mm left renal hypodense lesion. Ultrasound follow-up is recommended. 6. No evidence of acute pulmonary embolism ACT 112: Negative or not required by law. Electronically signed by: Darryn Dee M.D. 06/11/2020 4:47 PM
[2020-06-11] MEDS ORDERED: PIPERACILLIN/TAZOBACTAM 4.5 GM/120 ML BAG IV ONE (17:08)
[2020-06-11] MEDS ORDERED: VANCOMYCIN HCL 1,500 MG in SODIUM CHLORIDE 0.9% 500 ML IV ONE (17:08)
[2020-06-11] MEDS ORDERED: VANCOMYCIN CONSULT ACTIVE PRN (17:08)
[2020-06-11] MEDS ORDERED: PIPERACILL/TAZOBAC CONSULT ACTIVE PRN (17:08)
[2020-06-11] MEDS ORDERED: SODIUM CHLORIDE 0.9% 1000ML 1,000 ML IV ONE (17:12)
--- NOTE | 2020-06-11 17:24 | History & Physical Report ---
Date of Service June 11, 2020 Assessment & Plan (1) Cavitary lesion of lung: -Admit to med surg -On room air, O2 sats 95%, T-max 38.2, WBC = 12.36 -Started on IV Vanco and Zosyn in the ER, will continue -COVID-19 pending, follow -No known TB exposure -Consider pulmonary consultation-question if they would consider bronchoscopy to eval cavitary lesion, patient is not producing sputum, also possibility of this being neoplasm from history of breast cancer although is less suspicious per radiology report -Tylenol -Sputum culture if produces expectorant -Allow diet for now, tolerating PO fluids so will hold off on IVFs (2) History of bilateral breast cancer: -Occurred in 2009 and 2012, follows at [facility] for mammography, radiation oncology follow-ups -S/p chemotherapy and XRT and lumpectomy (3) Scoliosis: -Severe, right sided thoracic curvature of the spine. -Ambulates on her own without assistive devices -PT/OT consults (4) Anxiety: -History of such, continue lorazepam 1 mg daily prn (5) HTN (hypertension): -Continue diltiazem 240 mg daily, lisinopril 20 mg daily -BP well controlled (6) Osteoarthritis: - Fosamax 70 mg per week, calcium 1 cap qam, biotin (7) DVT prophylaxis: - carmen mosqueda CODE: DNR/DNI Dispo: From home, likely to remain in the hospital x 1-2 days History of Present Illness Primary Care Provider: Ian Dela Cruz MD This is a 74-year-old female with past medical history of breast cancer s/p lumpectomy x2 in 2009 and 2012, s/p chemo and XRT, HTN, GERD, constipation, history of melanoma, osteoarthritis, s/p left hip fracture and fixation in April 2019, severe thoracic scoliosis s/p surgery in the 1950s at age 10, and anxiety who presents with a right-sided chest/breast pain worse with deep breaths. She notes that she initially started feeling worse Saturday afternoon, developed a fever so started taking Tylenol every 4 hours. She was nauseous and vomited Saturday night and night. Last night she slept well without any issues. She has had a minimal appetite since Saturday, but has been doing a BRAT diet. She called her PCP yesterday, who scheduled her to have a COVID-19 rule out test for Saturday and gave her a prescription for Zofran (although has not used this). She decided that due to worsening pain with deep breaths that she would go to the ER. Here patient is found to be febrile with T-max = 39.2. On CTA completed after elevated d-dimer was found, found to have an RLL infectious cavitary lesion measuring about 2 cm. She denies any TB exposure. COVID swab is pending. She has been started on IV Zosyn and vancomycin. Allergies Allergy/AdvReac Type Severity Reaction Status Date / Time bacitracin Allergy Intermediate erythema Verified 06/11/20 13:39 neomycin Allergy Intermediate erythema Verified 06/11/20 13:39 polymyxin B Allergy Intermediate erythema Verified 06/11/20 13:39 codeine Allergy Unknown . Verified 06/11/20 13:39 adhesive AdvReac Intermediate PRURITIS Verified 06/11/20 13:39 Home Medications Home Medications Medication Instructions Recorded Confirmed Type Calcium 600 + D(3) 1 cap PO QAM 04/03/19 06/11/20 History anastrozole 1 mg PO QAM 04/03/19 06/11/20 History biotin 10,000 mcg PO QAM 04/03/19 06/11/20 History diltiazem HCl 240 mg PO QAM 04/03/19 06/11/20 History docusate sodium [Stool Softener] 100 mg PO QPM 04/03/19 06/11/20 History lisinopril 20 mg PO QAM 04/03/19 06/11/20 History lorazepam 1 mg PO DAILY PRN 04/03/19 06/11/20 History polyethylene glycol 3350 [Miralax] 17 g PO UD 04/03/19 06/11/20 History alendronate [Fosamax] 70 mg PO WK 04/08/19 06/11/20 History amoxicillin 500 mg tablet 2,000 mg PO ONCE #4 tab 11/04/19 06/11/20 Rx One-A-Day Womens Formula 1 tab PO QAM 06/11/20 06/11/20 History acetaminophen [Tylenol Extra 1,000 mg PO Q6H PRN 06/11/20 06/11/20 History Strength] Saccharomyces boulardii 250 mg PO DAILY 7 Days #7 cap 06/13/20 Rx levofloxacin 750 mg PO QAM 5 Days #5 tab 06/13/20 Rx Past Med/Surg History Medical History (Updated 06/14/20 @ 00:03 by Lucio Benavidez) Acid reflux Constipation History of bilateral breast cancer History of breast cancer S/P LUMPECTOMY X 2. + CHEMO/RADTION History of melanoma Internal hemorrhoid Microscopic hematuria Renal lesion Surgical History H/O wisdom tooth extraction History of cataract surgery History of colonoscopy History of dilatation and curettage History of left breast biopsy History of lumpectomy of left breast History of lumpectomy of right breast History of melanoma excision History of removal of cyst RT ELBOW History of right breast biopsy History of spinal fusion LUMBAR/THORACIC. 1949's, to correct scoliosis. History of tonsillectomy and adenoidectomy History of tooth extraction History of tubal ligation Social History Smoking Status: Former smoker Cigarettes Per Day: QUIT 40 YEARS AGO; Second Hand Exposure: No; Hx Alcohol Use: No Hx Substance Use: No Preferred Language: Khmer Communication Ability: Effective Admissions Assistant Required: No Beliefs That Will Affect Care: None Current Living Situation: Alone Feels Safe at Home: Yes Review of Systems Review of Systems: Constitutional: No fever, sweats or chills Eyes: No diplopia, no worsening or blurred vision ENT: normal hearing, no trouble swallowing Respiratory: No cough, sputum, dyspnea at rest or on exertion, + pain with deep breaths Cardiovascular: No chest pain, tightness or palpitations Abdomen: No pain, + nausea, + vomiting, no diarrhea or constipation Musculoskeletal: No joint pain, calf pain, swelling Neurologic: No weakness, numbness/tingling, or balance problems Psychiatric: No anxiety or depression Skin: No rash or itch Physical Exam Physical Exam: General: awake, alert, no apparent distress Head: Normocephalic, atraumatic ENT: PERRL, EOMI, no pharyngeal exudate, mucous membranes moist Chest: Clear to auscultation, on room air, no adventitious breath sounds Cardiac: Regular rate and rhythm, no murmur, no JVD, normal peripheral pulses, good capillary refill Abdominal: NABS x 4 quadrants, soft, nondistended, nontender to palpation, no rebound or guarding Back: Severe scoliosis of the spine Extremities: Normal inspection, no peripheral edema or erythema, calfs nontender to palpation Psych: Normal mood and affect Neuro: AAO x 3, strength intact bilaterally and rated 5/5, no motor deficits, speech is clear, no peripheral sensory deficits Results & Data Results & Data ([facility]) Vital Signs (Past 12 Hours) Vital Signs Temp Pulse Pulse Resp BP BP Pulse Ox 06/11/20 16:39 39.2 C H 103 H 22 170/74 H 97 06/11/20 16:07 94 H 18 151/65 H 98 06/11/20 14:18 98 H 22 161/75 H 96 06/11/20 14:08 96 06/11/20 13:45 96 06/11/20 12:06 37.6 C H 110 H 20 145/63 H [address] ANGIOGRAM OF THE CHEST CLINICAL HISTORY: Right-sided chest pain. Fever. History of breast carcinoma. Possible pulmonary embolism. COMPARISON STUDY: 07/17/2013 TECHNIQUE: Following the IV administration of 64 mL of Optiray-320, CT angiogram of the thorax was performed from the thoracic inlet to the lung bases utilizing the pulmonary embolus protocol. Images are reviewed in the axial, sagittal, and coronal planes. IV contrast was administered without complication. MIP imaging was performed. A dose lowering technique was utilized adhering to the principles of ALARA. CT DOSE: 449.53 mGy.cm FINDINGS: Images to the upper abdomen reveal a partially visualized 29 mm left renal hypodensity. This exceeds water attenuation and is therefore indeterminate. Ultrasonographic evaluation is recommended in follow-up. There is a multinodular right lobe thyroid goiter containing multiple calcifications. No pathologically enlarged axillary mediastinal or hilar lymph nodes were visualized. There was no evidence of thoracic aortic dilatation. There were no pulmonary artery filling defects to indicate acute pulmonary embolism. There is a trace right pleural effusion. There is a 2.5 cm pleural-based opacity within the right lower lobe abutting the major fissure. There is inferior cavitation versus pneumatocele formation. There is mild basilar atelectatic change. There is right apical pleural/parenchymal scarring. There is a severe thoracolumbar scoliosis IMPRESSION: 1. 2.5 cm pleural-based opacity within the right lower lobe abutting the major fissure. There is inferior cavitation versus pneumatocele formation. An infectious/inflammatory lesion is favored over neoplasm. A one month follow-up CT scan is recommended. 2. Trace right pleural effusion 3. Multinodular right lobe thyroid goiter 4. Severe scoliosis 5. Partially visualized 29 mm left renal hypodense lesion. Ultrasound follow-up is recommended. 6. No evidence of acute pulmonary embolism XR chest 1V portable CLINICAL HISTORY: SEPSIS COMPARISON STUDY: 05/12/2020 FINDINGS: There is severe S-shaped thoracolumbar scoliosis. The heart is normal in size. There is no failure. There is no focal pulmonary consolidation. There are no pleural effusions.[There is a persistent nonspecific right apical opacity, likely representing apical scarring Surgical clips project over the right breast. IMPRESSION: 1. No change from the preceding study 2. Severe scoliosis 3. Stable right apical opacity likely representing apical scarring 4. No evidence of acute parenchymal consolidation ECG Additional Comments: 11-JUN-2020 13:41:27 [facility]-EDSTAT ROUTINE RETRIEVAL Normal sinus rhythm Normal ECG When compared with ECG of 08-APR-2019 14:23, No significant change was found 25mm/s 10mm/mV 150Hz 9.0.9 12SL 241 BENJAMIN: 16 Referred by: REFERRED SELF Unconfirmed Vent. rate 99 BPM WA interval 180 ms QRS duration 80 ms QT/QTc 346/444 ms P-R-T axes 69 -8 31 Code Status & VTE Plan Code Status DNR-discussed with the patient at bedside Supervising Physician Co-Signing Physician Notes During my face to face encounter with the patient, I obtained a history and physical examination on the patient. I discussed plan of care with patient and Caitie Florian and answered patient's questions. I reviewed above note and agree with it. Patient has a cavitary lesion of the lung. will consult pulmonary for possible bronchoscopy. will continue with maki. PG Care Time/CCT Total # of Minutes Spent Total Time Spent with Patient: Total time spent is greater than 50% in coordination of care (as documented) at patient's floor/unit and/or counseling patient: Coding Level of Care Code 93555 Initial Inpt Care Lvl 3 Diagnoses Cavitary lesion of lung J98.4 History of bilateral breast cancer Z85.3 Scoliosis M41.9 Anxiety F41.9 HTN (hypertension) I10 Osteoarthritis M19.90 DVT prophylaxis Z29.9
[2020-06-11] MEDS ORDERED: NON-FORMULARY MEDICATION (Amoxicillin 2,000 MG) PO SCH (19:29)
[2020-06-11] MEDS ORDERED: ACETAMINOPHEN 500 MG TAB PO PRN (19:29)
[2020-06-11] MEDS ORDERED: ONDANSETRON INJ 2 MG/ML 2 ML VIAL IV PRN (19:29)
[2020-06-11] MEDS ORDERED: LORazepam 1 MG TAB PO PRN (19:29)
[2020-06-11] MEDS: DOCUSATE SODIUM 100 MG CAP PO SCH (21:43)
[2020-06-11] MEDS ORDERED: ACETAMINOPHEN 325 MG TAB ONE (22:20)
[2020-06-11] MEDS: PIPERACILLIN/TAZOBACTAM 3.375 GM in DEXTROSE 5% 100 ML IV SCH (23:36)
[2020-06-12] MEDS: ACETAMINOPHEN 325 MG TAB PO PRN ×4 (05:05→20:19)
[2020-06-12] MEDS ORDERED: VANCOMYCIN HCL 1,000 MG in SODIUM CHLORIDE 0.9% 250 ML IV SCH ×2 (06:00→18:00)
[2020-06-12 06:25] LABS: Hematocrit (blood only) 30.6 % (37-47); Hemoglobin 10.3 g/dL (12.0-16.0); Mean Corpuscular Hemoglobin 27.5 pg (25-34); Mean Corpuscular Hgb Conc 33.7 g/dL (32-36); Mean Corpuscular Volume 81.8 fL (80-100); Mean Platelet Volume 9.2 fL (7.4-10.4); Platelet Count 203 K/uL (130-400); RDW Coefficient of Variation 13.5 % (11.5-14.5); Red Blood Count 3.74 M/uL (4.2-5.4); White Blood Count 9.01 K/uL (4.8-10.8)
[2020-06-12] MEDS ORDERED: ALENDRONATE SODIUM 70 MG TAB PO SCH (06:30)
[2020-06-12 06:58] LABS: Albumin Globulin Ratio 0.8 (0.9-2); Albumin Level 2.7 gm/dl (3.4-5.0); BUN Creatinine Ratio 16.5 (10-20); Bilirubin,Total 0.5 mg/dl (0.2-1); Calcium 7.9 mg/dl (8.5-10.1); Creatinine Clr Calc Pharmacy 71.3 ml/min; Est GFR (African American) 103.8; Est GFR (Non-African American) 89.5; Globulin 3.3 gm/dl (2.5-4.0); Potassium 3.4 mmol/L (3.5-5.1)
[2020-06-12] MEDS: ANASTROZOLE 1 MG TAB PO SCH (08:10)
[2020-06-12] MEDS: CALCIUM 600MG + VIT D 400 IU TAB PO SCH (08:11)
[2020-06-12] MEDS: PIPERACILLIN/TAZOBACTAM 3.375 GM in DEXTROSE 5% 100 ML IV SCH ×2 (08:11→16:13)
[2020-06-12] MEDS: CEROVITE ADV FORMULA TAB PO SCH (08:11)
[2020-06-12] MEDS: lisinopril 20 MG TAB PO SCH (08:11)
[2020-06-12] MEDS: dilTIAZem HCL 240 MG CAPCR PO SCH (08:11)
[2020-06-12] MEDS ORDERED: POLYETHYLENE (MIRALAX) 17 GM PACK PO SCH (09:00)
[2020-06-12] MEDS ORDERED: NON-FORMULARY MEDICATION (Biotin 10,000 MCG) PO SCH (09:00)
[2020-06-12] MEDS ORDERED: POTASSIUM CHLORIDE CRTAB 20 MEQ TABCR PO ONE (09:00)
--- NOTE | 2020-06-12 09:49 | Electrocardiogram Report ---
Test Reason : Blood Pressure : / mmHG Vent. Rate : 099 BPM Atrial Rate : 099 BPM P-R Int : 180 ms QRS Dur : 080 ms QT Int : 346 ms P-R-T Axes : 069 -08 031 degrees QTc Int : 444 ms Normal sinus rhythm Normal ECG When compared with ECG of 08-APR-2019 14:23, No significant change was found Confirmed by Arnoldo Daniel ([id number]) on 06/12/2020 9:48:46 AM Referred By: REFERRED SELF Confirmed By:Arnoldo Daniel
--- NOTE | 2020-06-12 11:49 | Pulmonary Consultation ---
Date of Consultation June 12, 2020 Assessment & Plan (1) Pneumonia: CTA chest 06/11/2020 personally reviewed: Patient has significant scoliosis appreciated on the back. There is right lower lobe consolidative process appreciated in the periphery agonism ventricular thickening there is no significant mediastinal lymphadenopathy. I looked at the CT chest dating back 07/17/2013. Patient has 2 cysts located at the periphery one is in the left upper lobe and otherwise in the right lower lobe. --Pneumonia Right lower lobe peripheral location with pleuritic chest pain Significantly improved at the time of examination Continue with antibiotics for at least 7 days. Follow-up septic work-up.Covid-19 negative 06/11/2020 The consolidative process appreciated on the CAT scan done 06/11/2020 is where cystic right lower lobe lesion has been present, giving the output of the cavitary lesion. I do not think this is a cavitary lesion right now. Would recommend 2D echo to make sure there is no embolic reason for this pneumonia.I personally did not hear any murmur on physical exam. --Significant scoliosis Patient likely has restrictive lung disease from that PFTs as an outpatient might be beneficial to see if she will qualify for trilogy if that is significantly debilitating her day-to-day activity --Hx of Breast Ca s/p lumpectomy and radiation Plan: Continue with antibiotics Recommend 2D echo to rule out endocarditis being an etiology for pneumonia (the likelihood is low) Patient will need CT chest without contrast in 6 to 8 weeks to make sure there resolution of this infiltrate Pulmonary will continue to follow Please note the above document was generated using voice recognition software. It may contain grammatical, syntax or spelling errors. Laterality: right Lung location: unspecified part of lung Pneumonia type: due to unspecified organism Qualified Code(s): J18.9 - Pneumonia, unspecified organism (2) Scoliosis: History of Present Illness Attending Physician: Haley Guardado MD History of Present Illness 74-year-old female with past medical history of bilateral breast cancer initially on the left side diagnosed 2010 status post lumpectomy and radiation, followed by on the right side in 2013 status post lumpectomy chemotherapy and radiation, significant scoliosis was admitted to hospital because of fever going on since 3 4 days associated with right-sided pleuritic chest pain. Worse especially when she was to take deep breaths. Patient denies any cough. She is not bringing up any phlegm. No runny nose or tearing from the eyes. No loss of sense of taste. Denies any dysuria, no diarrhea. Mild nausea but no vomiting. No headache, no blurry vision. No recent travel history. No weight loss Social history: Used to smoke 2 to 3 cigarettes a day for approximately 30 years, social alcohol, denies any illicit drug use Pets: None, no birds or poultry nearby No family history of lung cancer. Personal history of breast cancer as above. Allergies Allergy/AdvReac Type Severity Reaction Status Date / Time bacitracin Allergy Intermediate erythema Verified 06/11/20 13:39 neomycin Allergy Intermediate erythema Verified 06/11/20 13:39 polymyxin B Allergy Intermediate erythema Verified 06/11/20 13:39 codeine Allergy Unknown . Verified 06/11/20 13:39 adhesive AdvReac Intermediate PRURITIS Verified 06/11/20 13:39 Home Medications Home Medications Medication Instructions Recorded Confirmed Type Calcium 600 + D(3) 1 cap PO QAM 04/03/19 06/11/20 History anastrozole 1 mg PO QAM 04/03/19 06/11/20 History biotin 10,000 mcg PO QAM 04/03/19 06/11/20 History diltiazem HCl 240 mg PO QAM 04/03/19 06/11/20 History docusate sodium [Stool Softener] 100 mg PO QPM 04/03/19 06/11/20 History lisinopril 20 mg PO QAM 04/03/19 06/11/20 History lorazepam 1 mg PO DAILY PRN 04/03/19 06/11/20 History polyethylene glycol 3350 [Miralax] 17 g PO UD 04/03/19 06/11/20 History alendronate [Fosamax] 70 mg PO WK 04/08/19 06/11/20 History amoxicillin 500 mg tablet 2,000 mg PO ONCE #4 tab 11/04/19 06/11/20 Rx acetaminophen [Tylenol Extra 1,000 mg PO Q6H PRN 06/11/20 06/11/20 History Strength] [id number] carb-vit K 1 tab PO QAM 06/11/20 06/11/20 History [One-A-Day Womens Formula] Patient History Medical History (Updated 06/11/20 @ 18:25 by Yousif Bermudez MD) Acid reflux Anxiety Constipation History of breast cancer S/P LUMPECTOMY X 2. + CHEMO/RADTION History of melanoma HTN (hypertension) Internal hemorrhoid Osteoarthritis Scoliosis Thoracic, s/p corrective surgery in 1950s Surgical History H/O wisdom tooth extraction History of cataract surgery History of colonoscopy History of dilatation and curettage History of left breast biopsy History of lumpectomy of left breast History of lumpectomy of right breast History of melanoma excision History of removal of cyst RT ELBOW History of right breast biopsy History of spinal fusion LUMBAR/THORACIC. s, to correct scoliosis. History of tonsillectomy and adenoidectomy History of tooth extraction History of tubal ligation Social History Smoking Status: Former smoker Cigarettes Per Day: QUIT 40 YEARS AGO; Second Hand Exposure: No; Hx Alcohol Use: No Hx Substance Use: No Preferred Language: Slovak Communication Ability: Effective Sleep Lab Technologist Required: No Beliefs That Will Affect Care: None Current Living Situation: Alone Other Information That Helps Us Care for You: No Feels Safe at Home: Yes Safety Concerns: Feels Safe At This Time Review of Systems Review of Systems: All systems reviewed & are unremarkable except as noted in HPI & below Physical Exam Physical Exam: Constitutional: No acute distress, patient does better which has been there since . HEENT: EOMI, PERRLA Respiratory system: Decreased air entry bilaterally, no wheeze, no rhonchi, mild crackles bilateral lower lobes more on the right side CVS: S1-S2 positive, no murmurs or gallops Abdomen: Soft, nontender, nondistended, positive bowel sounds x4 Extremities: +2 pulses bilaterally radialis/ dorsalis pedis, no cyanosis, +1 edema, significant scoliosis appreciated Neuro: Awake alert oriented x3 Psych: Normal mood and affect G/U: No Dsouza Skin: no rashes, warm and dry Lymphatic: no cervical or axillary lymphadenopathy Results & Data Results & Data ([facility]) Vital Signs (Past 12 Hours) Vital Signs Temp Pulse Resp BP Pulse Ox 06/12/20 11:27 37.4 C 06/12/20 07:16 36.9 C 93 H 20 135/76 93 06/12/20 06:04 06/12/20 06:04 PG Care Time/CCT Total # of Minutes Spent Total Time Spent with Patient: Total time spent is greater than 50% in coordination of care (as documented) at patient's floor/unit and/or counseling patient: Coding Level of Care Code 94986 Initial Inpt Care Lvl 3 Diagnoses Pneumonia J18.9 Laterality: right Lung location: unspecified part of lung Pneumonia type: due to unspecified organism Scoliosis M41.9
--- NOTE | 2020-06-12 14:07 | Pharmacy Report ---
Pharmacy Abx Initial Consult - Date of Service June 12, 2020 - Pharmacy Dosing Scope Date of Consult: 06/11/20 Consultation requested by: Dr. Lima Pharmacy is consulted to initiate vancomycin and Zosyn IV dosing therapy, order appropriate labs and adjust drug dose/frequency. - Subjective The patient is a 74 year old F admitted on 06/11/20 18:08. - Objective Height: 5 ft 4 in Weight: 60.2 kg Vital Signs (Past 12hrs): Vital Signs Temp Pulse Resp BP Pulse Ox 06/12/20 11:27 37.4 C 06/12/20 07:16 36.9 C 93 H 20 135/76 93 Lab Results (24hrs): Laboratory Tests (24 Hours) 06/12/20 06/12/20 06/11/20 06:04 06:04 14:10 WBC 9.01 Neut # (Auto) Creatinine 0.58 L 0.69 Est Cr Clr Drug Dosing 71.3 59.9 06/11/20 14:10 WBC 12.36 H Neut # (Auto) 10.09 H Creatinine Est Cr Clr Drug Dosing Micro Results: 06/11/20 15:06 Aerobic Blood Culture - Pending Blood Anaerobic Blood Culture - Pending 06/11/20 14:10 Aerobic Blood Culture - Pending Blood Anaerobic Blood Culture - Pending - Risk Factors for Resistance * Hx of breast cancer s/p lumpectomy x 2 and chemotherapy - Assessment & Plan Assessment 74 year old F receiving empiric vancomycin and Zosyn for treatment of right low er lobe pneumonia. CTA revealed opacity - infectious/inflammatory lesion vs. neoplasm. Leukocytosis on admission (12.36 -> 9.01 K today), Tmax: 39.2 C last evening. Per pulmonology - antibiotics should be continued for 7 days. Blood cultures x 2 ordered and pending. Plan Vancomycin IV * Loading dose: 1500 mg (25 mg/kg) * Maintenance dose: 1000 mg IV (16 mg/kg) every 12 hours * Patient meets criteria for vancomycin AUC dosing nomogram * AUC/DESTIN is the preferred PK/PD target for vancomycin * Target AUC/DESTIN = 400-600 * AUC guided dosing is effective and associated with decreased risk of nephrotoxicity * Vancomycin trough ordered for 06/13/20 prior to 4th maintenance dose Piperacillin/tazobactam * 4.5 g bolus administered over 30 minutes, then 3.375 g IV extended infusion every 8 hours for CrCl greater than 20 mL/min Pharmacy will continue to follow and will adjust dose/frequency as necessary. Thank you.
--- NOTE | 2020-06-12 17:14 | Hospitalist Progress Note ---
Date of Service June 12, 2020 Assessment & Plan (1) Pneumonia: With RLL PNA and small pleural effusion seen on CT Chest, with likely underlying cyst as per Pulm, NOT cavitary lesion or abscess. Presented with fevers and right sided pleuritic chest pain ,malaise, low appetite. COVID-19 negative Now much improved since admission with IV abx. This is a CAP and nasal MRSA negative -can de-escalate abx today to Levaquin and continue for 7 days -Pulm consult appreciated- continue abx, needs f/u Chest CT in 6 weeks and outpt PFTs -tylenol as needed for fevers and pain -f/u BCxs-NGTD -not requiring O2 can likely go home tomorrow if BCxs remain no growth (2) Cavitary lesion of lung: -as above, likely underlying cyst as per PULM (3) Chest pain: secondary to PNA improved troponin negative, ECG normal (4) History of bilateral breast cancer: -Occurred in 2009 and 2012, follows at [facility] for mammography, radiation oncology follow-ups -S/p chemotherapy and XRT and lumpectomy continue Anastrazole (5) Scoliosis: -Severe, right sided thoracic curvature of the spine. -Ambulates on her own without assistive devices -can be contributing to restrictive lung disease PFTs as outpt (6) Anxiety: -History of such, continue lorazepam 1 mg daily prn (7) HTN (hypertension): -Continue diltiazem 240 mg daily, lisinopril 20 mg daily -BP well controlled (8) Hypokalemia: mildly low replace with po KCl follow BMP in AM (9) Renal lesion: lesion seen incidentally on CT scan recommend outpt f/u Renal US vs [address] given microscopic hematuria (10) Microscopic hematuria: on UA here, f/u with repeat UA as outpt and given renal lesion, may need Urol referral discussed renal lesion and hematuria with pt no gross hematuria, no UTI (11) DVT prophylaxis: - teds, scds add Lovenox SQ CODE: DNR/DNI Dispo: From home, likely dc to home tomorrow if BCxs remain NGTD Case discussed with Pulm Admission and Anticipated Discharge Date Admission Date: June 11, 2020 Subjective Feeling much better. No cough, pain in right side improved, only low grade fever today. Has a good appetite.No diarrhea or constipation. Denies hematuria. Discussed the lesion on kidney on the CT scan and microscopic hematuria in UA Review of Systems Review of Systems: All systems reviewed & are unremarkable except as noted in HPI & below Physical Exam Constitutional: WD/WN, vitals as above Eyes: + anicteric sclerae Neck: trachea midline, no thyromegaly Respiratory: normal respiratory effort; no labored breathing Auscultation: + crackles (at right lower lung field); no rhonchi and no wheezes Cardiovascular: RRR, no murmur, no edema Chest (Breasts): Chest: normal inspection of chest Gastrointestinal (Abdomen): normal bowel sounds, soft, nontender, no hepatosplenomegaly Musculoskeletal: Spine: + lumbar spine abnormal to inspection (severe thoracolumbar scoliosis) Extremities: extremities normal to inspection; no cyanosis and no clubbing Skin: no rashes, warm and dry Neurologic: moves all extremities and awake; no focal motor deficits Psychiatric: A+Ox3, euthymic affect Lymphatic: no lymphedema Results & Data Results & Data ([facility]) Vital Signs (Past 12 Hours) Vital Signs Temp Pulse Resp BP BP Pulse Ox 06/12/20 14:51 37.9 C H 98 H 20 131/70 94 06/12/20 11:27 37.4 C 06/12/20 07:16 36.9 C 93 H 20 135/76 93 Laboratory Results 06/12/20 06/12/20 06/12/20 Range/Units 08:57 06:04 06:04 WBC 9.01 (4.8-10.8) K/uL RBC 3.74 L (4.2-5.4) M/uL Hgb 10.3 L (12.0-16.0) g/dL Hct 30.6 L (37-47) % MCV 81.8 (80-100) fL MCH 27.5 (25-34) pg MCHC 33.7 (32-36) g/dL RDW Std Deviation 41.0 (36.4-46.3) fL RDW Coeff of Clair 13.5 (11.5-14.5) % Plt Count 203 (130-400) K/uL MPV 9.2 (7.4-10.4) fL Sodium 139 (136-145) mmol/L Potassium 3.4 L (3.5-5.1) mmol/L Chloride 109 H (98-107) mmol/L Carbon Dioxide 23 (21-32) mmol/L Anion Gap 8.0 (3-11) BUN 10 (7-18) mg/dl Creatinine 0.58 L (0.6-1.2) mg/dl Est Cr Clr Drug Dosing 71.3 ml/min Est GFR ( Amer) 103.8 Est GFR (Non-Af Amer) 89.5 BUN/Creatinine Ratio 16.5 (10-20) Glucose 99 (70-99) mg/dl Calcium 7.9 L D (8.5-10.1) mg/dl Total Bilirubin 0.5 (0.2-1) mg/dl AST 12 L (15-37) U/L ALT 31 (12-78) U/L Alkaline Phosphatase 63 (45-117) U/L Total Protein 6.0 L D (6.4-8.2) gm/dl Albumin 2.7 L (3.4-5.0) gm/dl Globulin 3.3 (2.5-4.0) gm/dl Albumin/Globulin Ratio 0.8 L (0.9-2) Nasal Screen MRSA (PCR) Negative (Negative) COVID-19 Eval Order COVID-19 PCR (Negative) Nasopharyn COVID-19 PCR 06/11/20 06/11/20 06/11/20 Range/Units 14:10 14:10 14:10 WBC (4.8-10.8) K/uL RBC (4.2-5.4) M/uL Hgb (12.0-16.0) g/dL Hct (37-47) % MCV (80-100) fL MCH (25-34) pg MCHC (32-36) g/dL RDW Std Deviation (36.4-46.3) fL RDW Coeff of Clair (11.5-14.5) % Plt Count (130-400) K/uL MPV (7.4-10.4) fL Sodium (136-145) mmol/L Potassium (3.5-5.1) mmol/L Chloride (98-107) mmol/L Carbon Dioxide (21-32) mmol/L Anion Gap (3-11) BUN (7-18) mg/dl Creatinine (0.6-1.2) mg/dl Est Cr Clr Drug Dosing ml/min Est GFR ( Amer) Est GFR (Non-Af Amer) BUN/Creatinine Ratio (10-20) Glucose (70-99) mg/dl Calcium (8.5-10.1) mg/dl Total Bilirubin (0.2-1) mg/dl AST (15-37) U/L ALT (12-78) U/L Alkaline Phosphatase (45-117) U/L Total Protein (6.4-8.2) gm/dl Albumin (3.4-5.0) gm/dl Globulin (2.5-4.0) gm/dl Albumin/Globulin Ratio (0.9-2) Nasal Screen MRSA (PCR) (Negative) COVID-19 Eval Order Covid19 Done at [facility] COVID-19 PCR NEGATIVE (Negative) Nasopharyn COVID-19 PCR Cancelled PG Care Time/CCT Total # of Minutes Spent Total Time Spent with Patient: Total time spent is greater than 50% in coordination of care (as documented) at patient's floor/unit and/or counseling patient: Coding Level of Care Code 10397 Subseq Hosp Care Lvl 3 Diagnoses Pneumonia J18.9 Laterality: right Lung location: unspecified part of lung Pneumonia type: due to unspecified organism Cavitary lesion of lung J98.4 Chest pain R07.9 Chest pain type: unspecified History of bilateral breast cancer Z85.3 Scoliosis M41.9 Anxiety F41.9 HTN (hypertension) I10 Hypokalemia E87.6 Renal lesion N28.9 Microscopic hematuria R31.29 DVT prophylaxis Z29.9 (1) Pneumonia Laterality: right Lung location: unspecified part of lung Pneumonia type: due to unspecified organism Qualified Code(s): J18.9 - Pneumonia, unspecified organism (2) Chest pain Chest pain type: unspecified Qualified Code(s): R07.9 - Chest pain, unspecified
[2020-06-12] MEDS: DOCUSATE SODIUM 100 MG CAP PO SCH (20:13)
[2020-06-12] MEDS ORDERED: ENOXAPARIN INJ 40 MG/0.4 ML SYR SQ SCH (21:00)
[2020-06-13 06:27] LABS: Hematocrit (blood only) 32.9 % (37-47); Hemoglobin 10.8 g/dL (12.0-16.0); Mean Corpuscular Hemoglobin 27.1 pg (25-34); Mean Corpuscular Hgb Conc 32.8 g/dL (32-36); Mean Corpuscular Volume 82.7 fL (80-100); Platelet Count 256 K/uL (130-400); RDW Coefficient of Variation 13.6 % (11.5-14.5); RDW Standard Deviation 41.4 fL (36.4-46.3); Red Blood Count 3.98 M/uL (4.2-5.4); White Blood Count 9.15 K/uL (4.8-10.8)
[2020-06-13 06:59] LABS: BUN Creatinine Ratio 14.2 (10-20); Calcium 8.7 mg/dl (8.5-10.1); Creatinine Clr Calc Pharmacy 72.5 ml/min; Est GFR (African American) 104.4; Potassium 3.8 mmol/L (3.5-5.1)
[2020-06-13 07:01] LABS: Albumin Globulin Ratio 0.8 (0.9-2); Bilirubin,Total 0.5 mg/dl (0.2-1); Globulin 3.7 gm/dl (2.5-4.0); Total Protein 6.7 gm/dl (6.4-8.2)
[2020-06-13] MEDS: CEROVITE ADV FORMULA TAB PO SCH (08:14)
[2020-06-13] MEDS: ANASTROZOLE 1 MG TAB PO SCH (08:14)
[2020-06-13] MEDS: lisinopril 20 MG TAB PO SCH (08:14)
[2020-06-13] MEDS: dilTIAZem HCL 240 MG CAPCR PO SCH (08:14)
[2020-06-13] MEDS: CALCIUM 600MG + VIT D 400 IU TAB PO SCH (08:14)
--- NOTE | 2020-06-13 08:55 | Pulmonology Progress Note ---
Date of Service June 13, 2020 Assessment & Plan (1) Pneumonia: Impression: 74-year-old female with remote history of tobacco abuse and previous pneumatocele versus focal area of emphysema now with surrounding airspace opacity. I agree with assessment of prior desk director that this does not represent a cavitary lesion rather focal area of airspace opacity around a region of structurally abnormal lung. She is clinically improved at this point time. Recommendations: 1. Agree with antibiotics for an additional 7 days. 2. Follow-up CT scan in 6 to 8 weeks. 3. Increasing ambulation as tolerated. Disposition per primary service. The patient appears stable to be dismissed fr the hospital from my perspective. Laterality: right Lung location: unspecified part of lung Pneumonia type: due to unspecified organism Qualified Code(s): J18.9 - Pneumonia, unspecified organism (2) Cavitary lesion of lung: (3) Cavitary lesion of lung: (4) Chest pain: Chest pain type: unspecified Qualified Code(s): R07.9 - Chest pain, unspecified Admission and Anticipated Discharge Date Admission Date: June 11, 2020 Subjective Patient seen and examined. EMR reviewed. Discussed with off going desk director. The patient states that she feels quite well currently. The previously noted chest discomfort she was experiencing appears to have resolved. She is off oxygen. She is tolerating a diet. She is ambulating to the restroom without difficulty. She overall feels significantly improved. Review of Systems Review of Systems: All systems reviewed & are unremarkable except as noted in HPI & below Physical Exam Constitutional: WD/WN, vitals as above Neck: trachea midline, no thyromegaly Respiratory: normal respiratory effort, lungs clear to auscultation Cardiovascular: RRR, no murmur, no edema Gastrointestinal (Abdomen): normal bowel sounds, soft, nontender, no hepatosplenomegaly Musculoskeletal: Extremities: extremities normal to inspection Skin: no rashes, warm and dry Neurologic: Nonfocal exam Lymphatic: no cervical lymphadenopathy Results & Data Results & Data ([facility]) Vital Signs (Past 12 Hours) Vital Signs Temp Pulse Resp BP Pulse Ox Pulse Ox 06/12/20 23:59 94 06/12/20 23:00 37.0 C 89 18 114/69 94 Laboratory Results 06/13/20 05:58 06/13/20 05:58 Blood cultures show no growth to date. Diagnostic Findings Images were independently reviewed. PG Care Time/CCT Total # of Minutes Spent Total Time Spent with Patient: Total time spent is greater than 50% in coordination of care (as documented) at patient's floor/unit and/or counseling patient: Coding Level of Care Code 06144 Subseq Hosp Care Lvl 3 Diagnoses Pneumonia J18.9 Laterality: right Lung location: unspecified part of lung Pneumonia type: due to unspecified organism Cavitary lesion of lung J98.4 Cavitary lesion of lung J98.4 Chest pain R07.9 Chest pain type: unspecified Time Spent (min) 35
[2020-06-13] MEDS ORDERED: levoFLOXacin 750 MG TAB PO SCH (09:00)
--- NOTE | 2020-06-13 09:13 | XCELERA ---
[id number]
--- NOTE | 2020-06-13 14:06 | Discharge Summary ---
Date of Service date of admission - June 11, 2020 date of discharge - June 13, 2020 Admission HPI Per Admitting Provider This is a 74-year-old female with past medical history of breast cancer s/p lumpectomy x2 in 2009 and 2012, s/p chemo and XRT, HTN, GERD, constipation, hist ory of melanoma, osteoarthritis, s/p left hip fracture and fixation in April 2019, severe thoracic scoliosis s/p surgery in the 1950s at age 10, and anxiety who presents with a right-sided chest/breast pain worse with deep breaths. She notes that she initially started feeling worse Saturday afternoon, developed a fever so started taking Tylenol every 4 hours. She was nauseous and vomited Saturday night and night. Last night she slept well without any issues. She has had a minimal appetite since Saturday, but has been doing a BRAT diet. She called her PCP yesterday, who scheduled her to have a COVID-19 rule out test for Saturday and gave her a prescription for Zofran (although has not used this). She decided that due to worsening pain with deep breaths that she would go to the ER. Here patient is found to be febrile with T-max = 39.2. On CTA completed after elevated d-dimer was found, found to have an RLL infectious cavitary lesion measuring about 2 cm. She denies any TB exposure. COVID swab is pending. She has been started on IV Zosyn and vancomycin. Principal Diagnosis RLL community-acquired pneumonia Discharge Exam Constitutional well developed and well nourished; no acute distress and no altered mental status ENMT external ear and nose normal, oropharynx normal Respiratory normal respiratory effort, lungs clear to auscultation Cardiovascular Rate/Rhythm: regular rate and regular rhythm Heart Sounds: normal S1 and normal S2; no murmur Vessels: posterior tibial pulses present and dorsalis pedis pulses present; no JVD Extremities: no edema Gastrointestinal (Abdomen) normal bowel sounds, soft, nontender, no hepatosplenomegaly Musculoskeletal Spine: + scoliosis Psychiatric A+Ox3, euthymic affect Discharge Data Allergies Allergy/AdvReac Type Severity Reaction Status Date / Time bacitracin Allergy Intermediate erythema Verified 06/11/20 13:39 neomycin Allergy Intermediate erythema Verified 06/11/20 13:39 polymyxin B Allergy Intermediate erythema Verified 06/11/20 13:39 codeine Allergy Unknown . Verified 06/11/20 13:39 adhesive AdvReac Intermediate PRURITIS Verified 06/11/20 13:39 Consultations [facility] - Melba Caal MD Ordered Studies 06/11/20 15:15 CT angio chest PE protocol Stat IMPRESSION: 1. 2.5 cm pleural-based opacity within the right lower lobe abutting the major fissure. There is inferior cavitation versus pneumatocele formation. An infectious/inflammatory lesion is favored over neoplasm. A one month follow-up CT scan is recommended. 2. Trace right pleural effusion 3. Multinodular right lobe thyroid goiter 4. Severe scoliosis 5. Partially visualized 29 mm left renal hypodense lesion. Ultrasound follow-up is recommended. 6. No evidence of acute pulmonary embolism Hospital Course (1) RLL pneumonia: The patient was found to have a 2.5cm RLL pneumonia abutting the pleura and major fissure. The adjacent nature to the pleura was the likely caused of her presenting right-sided chest pain. She was initiated on IV antibiotics. Blood cultures remained negative while here. She was seen by Dr Melba Caal from [facility]. Looking at old films it appears that the patient had a lung cyst in this location and that the pneumonia was present in this same location. A cavitary lung mass or cavitary pneumonia was not suspected. The patient clinically improved with IV antibiotics and supportive care measures. She never required oxygen during her short stay. The patient will complete a 5-rafi course of oral levaquin after discharge. She will need a repeat CT of the chest in 6-8 weeks to ensure there is no other pathology in the RLL of the lung. (2) Lung cyst: RLL of lung. Present on prior imaging. See discussion in "RLL pneumonia." (3) Renal lesion: On CT chest an incidental 2.9cm left renal lesion was found. Recommend dedicated renal ultrasound and referral to urology for work-up of this lesion. (4) Multinodular goiter: Seen incidentally on CT chest. Recommend TFTs and dedicated thyroid ultrasound as outpatient. (5) Microscopic hematuria: See above re: "renal lesion." Urology consultation recommended in light of microscopic hematuria and the renal lesion seen. (6) Hypokalemia: Replaced and resolved prior to discharge. (7) Acid reflux: (8) Chronic hypertension: Continue lisinopril and diltiazem as previous. Controlled at time of discharge. Total Time Total Time Spent Total Time Spent (In Minutes): 40 Total Time Includes: Examination of the Patient, Discharge Planning and Medication Reconciliation Discharge Plan Discharge Items Patient Disposition: Home - Self-Care Reason For Visit: PNEUMONIA Discharge Diagnosis: 1. right-sided chest pain due to right-sided pneumonia - improved 2. incidentally found left kidney cyst - follow-up needed with Dr Dela Cruz 3. thyroid goiter seen incidentally on CAT scan - follow-up needed with Dr Dela Cruz Activity: As commented below Activity Comment: gradually increase your activities over the next few days Non-emergency contact: Primary Care Provider Call non-emergency contact if: you have any medication questions, your symptoms worsen, your pain is not controlled, your pain is worsening, your pain is unusual for you, your pain is concerning for you and you have a fever Follow-up/Referrals: Ian Dela Cruz MD [Primary Care Provider] - 06/17/20 10:10 am (You have a follow up appt with Dr. Dela Cruz SaturdayJun 17 at 10:10am. Please arrive 15 minutes prior to your appt time. Remeber your face mask. It is important to follow up with your primary care provider, if this appt doesn't fit in your schedule, please call [phone] to reschedule. ) Diet: Regular Addtl Attending Provider Instructions: You were admitted to the hospital because of right-sided chest discomfort with taking deep breaths. On CAT scan we found an area of pneumonia in the bottom of the right lung (right lower lobe). This was the cause of your chest pain. You were treated with IV antibiotics and your symptoms improved. Blood cultures remained negative while here. COVID-19 testing was negative. An echocardiogram of your heart was normal. You were seen by the lung specialist who recommended a repeat CAT scan of the lungs in about 6-8 weeks to ensure resolution of the pneumonia. Incidentally the CAT scan showed a cyst on your left kidney, as well as a thyroid goiter. You likely will need an ultrasound of your kidneys and potentially your thyroid gland as well. Dr Dela Cruz will likely check blood tests for your thyroid as well. Most kidney cysts are benign. Additionally most thyroid goiters are benign. Recommendations - 1. take levofloxacin 750mg daily for 5 days starting 06/14/20. This is your antibiotic. 2. take probiotics daily for 7 days to help prevent diarrhea from your antibiotics. You can start these today. 3. see Dr Dela Cruz as scheduled on 06/17/20. 4. obtain a CAT scan of the lungs in 6-[address] Dela Cruz can arrange this. 5. please speak to Dr Dela Cruz about your kidneys and thyroid gland as noted above. 6. continue to practice social distancing and wear a mask at all times when outside of your home. Be sure to get your flu shot this fall as well. Return to [facility] if - * you have recurrent chest pain/discomfort * you have worsening shortness of breath * you develop severe diarrhea * you develop recurrent fevers over 101 degrees * any other concerns Pending Studies at Discharge: Yes Studies:: blood cultures, but thus far these are negative Stand-Alone Forms: My [facility], Smoking Cessation Medications and DC Order Prescriptions: New levofloxacin 750 mg Tablet 750 mg PO QAM 5 Days Qty: 5 RF: 0 Saccharomyces boulardii 250 mg capsule 250 mg PO DAILY 7 Days Qty: 7 RF: 0 Continued amoxicillin 500 mg tablet 2,000 mg PO ONCE Qty: 4 RF: 2 One-A-Day Womens Formula 18 mg iron-400 mcg-500 mg Tablet 1 tab PO QAM RF: 0 acetaminophen [Tylenol Extra Strength] 500 mg Tablet 1,000 mg PO Q6H PRN (Reason: Pain) RF: 0 anastrozole 1 mg Tablet 1 mg PO QAM RF: 0 polyethylene glycol 3350 [Miralax] 17 gram Powder In Packet 17 g PO UD RF: 0 diltiazem HCl 240 mg Capsule,Extended Release 24hr 240 mg PO QAM RF: 0 lisinopril 20 mg Tablet 20 mg PO QAM RF: 0 biotin 10,000 mcg Capsule 10,000 mcg PO QAM RF: 0 lorazepam 1 mg Tablet 1 mg PO DAILY PRN (Reason: Anxiety) RF: 0 docusate sodium [Stool Softener] 100 mg Tablet 100 mg PO QPM RF: 0 Calcium 600 + D(3) 600 mg calcium- 200 unit Capsule 1 cap PO QAM RF: 0 alendronate [Fosamax] 70 mg Tablet 70 mg PO WK RF: 0 Discharge Orders: Discharge Order (Routine); Ordered 09/14/20 Ordered By: Yao Guy Admission Data Admit Date/Time: 06/11/20 18:08 Attending Provider: Yao Guy Admit Provider: Dorian Lima Primary Care Provider: Ian Dela Cruz Other Providers: Dorian Lima ; Melba Caal Other Interventions: Discharge Summary Assessment (RN) Last Done: 06/13/20 14:13 Coding Level of Care Code D/C Day Management >30 mins Diagnoses RLL pneumonia J18.9 Lung cyst J98.4 Renal lesion N28.9 Multinodular goiter E04.2 Microscopic hematuria R31.29 Hypokalemia E87.6 Acid reflux K21.9 Chronic hypertension I10
[2020-06-13] MEDS ORDERED: VANCOMYCIN TROUGH ONE (17:30)
== END 2020-06-13 15:06 | disposition home or self-care (01) | DRG 195 ==
LOC: ED 12:04 → SUATTDRO 18:08 → 2N 18:08

== ENCOUNTER 2024-06-01 12:34 | Observation (INO) ==
--- OUTSIDE RECORDS SUMMARY | 2024-06-01 12:37 | External Medical Summary | Summary of Care ---
Author Name Unknown Organization [facility] Address [address] [place] [address] Phone [phone] Care Team Providers Care Business Unit Leader Name Role Phone Ian Dela Cruz MD Primary Care Provider Reason for Referral * Evaluate & Treat - Unlimited Visits (Within 10 days (routine)) - Authorized Specialty Diagnoses / Procedures Referred By Contac t Referred To Contact Pain Management / Pain Medicine Diagnoses Neuralgia and neuritis Kushal House MD [address] [place] [address] [address] Referral ID Status Reason Start Date Expiration Date Visits Requested Visits Authorized [id number] Authorized Specialty Services Required 03/27/2024 999 999 Question Answer Referral Priority Within 10 days (routine) Where should this appointment be scheduled? [facility] Reason for referral? Non Interventional Pain Management What is the preferred location to have this test performed? [facility] Comments Patient Name: Aliya Kruger Date of : 1945 Department Phone Number: MRI or CT (if unable to have a MRI) is recommended if any of the following apply: 1. Patient has neck or back pain with radiation to extremities. A previous MRI will be accepted if symptoms unchanged since prior MRI. 2. Spinal surgery since last MRI. If yes, order a MRI with and without contrast. 3. Hx or ongoing cancer treatment. Patient will need spine x-ray (Ap/Lat) for axial neck or back pain if not done previously. Fax No. [facility] [phone] or contact front office java developer [phone] Fax No. [facility] [phone] or contact front office java developer [phone] Fax No. [facility] [phone] or contact front office java developer [phone] Encounter Details Date Type Department Care Team (Late st Contact Info) Description 03/27/2024 Orders Only [facility] [place] [address] [place] [address] Av Ext *DO NOT REMOVE THIS DEPARTMENT* [place] [address] Request, External Referral Neuralgia and neuritis* Allergies Active Allergy Reactions Criticality Noted Date Comments Adhesive Tape Rash 02/11/2015 Codeine 11/25/2012 Morphine And Codeine Other (Please comment) Eldred disoriented Amlodipine Edema Other,Rash 03/22/2023 documented as of this encounter (statuses as of 03/27/2024) Medications Medication Sig Dispensed Refills Start Date End Date Status LORAZEPAM 0.5 MG PO TABS one tablet 3 times daily as needed Active CALCIUM-D 600-200 MG-UNIT PO CAPS one tablet once daily Active EQ ACID FUGITIVE INVESTIGATOR 75 MG PO TABS 150mg as needed Active DILTIAZEM HCL ER 120 MG PO CP24 None Entered Active Biotin 1000 MCG Tablet Take 1 Tablet by mouth in the morning and 1 Tablet at noon and 1 Tablet before bedtime. Active Alendronate Sodium (FOSAMAX 5 MG PO TABS) Take by mouth. Active lisinopril (PRINIVIL) 2.5 MG Tablet Take 1 Tablet by mouth in the morning. Active Vitamin C 1000 MG Oral Tablet Take 1 Tablet by mouth in the morning. Active hydroCHLOROthiazide 12.5 MG Oral Capsule (Hydrodiuril) Take 1 Capsule by mouth in the morning. Active Acyclovir 400 MG Oral Tablet (Zovirax)Indications:He rpes simplex vulvovaginitis Take 1 Tablet by mouth in the morning and 1 Tablet at noon and 1 Tablet before bedtime. 15 Tablet 09/16/2023 Active documented as of this encounter (statuses as of 03/27/2024) Active Problems Problem Noted Date Diagnosed Date ADVANCE DIRECTIVE INFORMATION 01/17/2010 Overview: Yes, Patient instructed to provide copy of advance directive for provider to review and to be scanned into Electronic Medical Record Malignant neoplasm of upper-outer quadrant of fe male breast 01/17/2010 HTN, GOAL BELOW 140/90 08/17/2009 Overview: Modified per HTN protocol #16. Other adverse food reactions, not elsewhere clas sified 06/27/2009 Overview: peanut, peanut butter - sneezing, runny nose, cough; no rash or anaphylactic symptoms ALLERGIC RHINITIS - MIXED TYPE 06/27/2009 Genital herpes Other form of scoliosis, unspecified spinal raven on Overview: ICD-10 update of inactive term documented as of this encounter (statuses as of 03/27/2024) Resolved Problems Problem Noted Date Diagnosed Date Resolved Date Malignant neoplasm of female breast 11/21/2009 01/17/2010 HYPERTENSION NOS 08/18/2009 Overview: Modified per HTN protocol #16. documented as of this encounter (statuses as of 03/27/2024) Social History Tobacco Use Types Packs/Day Years Used Date Smoking Tobacco: Former Cigarettes 0 09/30/1957 - 09/30/1975 Smokeless Tobacco: Never Comments:no passive smoke ex posures Alcohol Use Standard Drinks/Week Comments Yes 0 (1 standard drink = 0.6 oz pur e alcohol) occasionally Utilities Answer Date Recorded Do you have trouble paying y our heating, water, or electric bill? (Adult - for ages 18 years and over) Not on file 03/17/2024 Is your family able to pay t he heat, water, or electric bill? (Household - for ages 0-17 years) Not on file 03/17/2024 Does your family have access to good internet? (Household - for ages 0-17 years) Not on file 03/17/2024 Social Connections Answer Date Recorded How often do you feel lonely or isolated from those around you? (Adult - for ages 18 years and over) Not on file 03/17/2024 Sex and Gender Information Value Date Recorded Sex Assigned at Not on file Gender Identity Not on file Sexual Orientation Not on file Job Start Date Occupation Industry Not on file Not on file Not on file documented as of this encounter Plan of Treatment Scheduled Referrals Name Type Priority Associated Diagnoses Orde r Schedule PAIN MEDICINE REFERRAL OP Referral Within 10 days (routine) Neuralgia and neuritis Ordered: 03/27/2024 Health Maintenance Due Date Last Done Comments Depression Screening 1955 Albumin/Creatinine Ratio 1961 DTaP,Tdap,and Td Vaccines (1 - Tdap) 1962 Colonoscopy 07/19/2012 07/19/2009 DXA Scan 09/17/2023 09/17/2016, 11/29, 12/18/2011, Additional history exists COVID-19 Vaccine ( season) 2023 07/04/2023 GFR 09/27/2024 09/27/2023, 12/2010, 08/23/2009, Additional history exists Zoster Vaccines Completed 06/24/2020, 04/12/2020 Pneumococcal Vaccine: 65+ Years Completed 08/11/2020, 12/30/2015, 12/08/2007 Influenza Vaccine (FLU shot) Completed 01/2023, 07/10/2022, 07/07/2020, Additional history exists GARDASIL-HPV IMMUNIZATION SERIES Aged Out No longer eligible based on patient's age to complete this topic Hepatitis B Aged Out No longer eligi ble based on patient's age to complete this topic MENINGOCOCCAL (MENACTRA/MENVEO) Aged Out No longer eligible based on patient's age to complete this topic documented as of this encounter Medical Devices Not on filedocumented as of this encounter Visit Diagnoses Diagnosis Neuralgia and neuritis- Primary Neuralgia, neuritis, and radiculitis, unspecified documented in this encounter Care Teams Business Unit Leader Relationship Specialty Start Date End Date Ian Dela Cruz MD [address] [place] [address] Sylvester Zamarripa [address] [place] [address] PCP - General 10/03/99 documented as of this encounter
--- OUTSIDE RECORDS SUMMARY | 2024-06-01 12:37 | External Medical Summary | Continuity of Care Document ---
Author Name Unknown Organization [facility] [address] [place] [address] Address [address] [facility] [place], [place] [id number] Care Team Providers Care Still Operator Helper Name Role Phone Kushal House Primary Care Physician [phone] Encounter [facility] [id number] Date(s): 05/04/24 - 05/04/[address] [facility] [address] [facility], [address] [place] [address] [phone] Encounter Diagnosis Chemotherapy-induced peripheral neuropathy(Discharge Diagnosis) - 05/04/24 Discharge Disposition: Home or Self Care Attending Physician: MD House Ravishankar E Referring Physician: MD House Ravishankar E Allergies, Adverse Reactions, Alerts Substance Criticality Severity Reaction Reaction Severity Status codeine Confusion Nausea Active traMADol Unable to assess criticality Mild Lightheaded Active Adhesive bandage Rash Act latonya amLODIPine Tinnitus Active Assessment and Plan Extracted from: Title:Office Visit Note Author:MD House Ravishan kar E Date:05/04/24 1.Chemotherapy-induced per ipheral neuropathy - Continue to take lorazepam 0.25mg daily x 2-3 months then switch to qod or intermittent dosing, once able to taper off it over another 2-3 months can further increase gabapentin as indicated - Change gabapentin to 300mg qhsgoing forward, new rx sent f/u as scheduled 05/2024. Time: 30mins 5 - pre-visit chart review 20 - visit, inclusive of history, exam, and discussion of assessment/plan 5 - post-visit documentation/orders/coordination of care Immunizations Given and Recorded Vaccine Date Status Refusal Reason influenza virus vaccine, inactivated 07/04/23 Dionisio rded influenza virus vaccine, inactivated 07/10/22 Dionisio rded influenza virus vaccine, inactivated 1 07/07/20 Re corded influenza virus vaccine, inactivated 2 07/14/14 Re corded SARS-CoV-2 (COVID-19) mRNA-vacc - [id number] 07/04/23 Recorded RSV Vaccine Unspecified 06/13/23 Recorded measles/mumps/rubella virus vaccine 12/03/22 Recor ded tetanus/diphtheria/pertuss, acel (Tdap) 3 11/23/22 Recorded tetanus/diphtheria/pertuss, acel (Tdap) 03/22/14 G iven SARS-CoV-2 mRNA-1273 (6y+ bivalent) 4 08/15/22 Rec orded SARS-CoV-2 (COVID-19) mRNA-1273 vaccine 04/30/21 R ecorded SARS-CoV-2 (COVID-19) mRNA-1273 vaccine 5 11/27/20 Recorded SARS-CoV-2 (COVID-19) mRNA-1273 vaccine 6 10/23/20 Recorded pneumococcal 23-valent vaccine 7 08/11/20 Given pneumococcal 23-valent vaccine 12/08/07 Recorded zoster vaccine, inactivated 8 06/24/20 Recorded zoster vaccine, inactivated 9 04/12/20 Recorded pneumococcal 13-valent vaccine 12/30/15 Given 1Result Comment: [facility]- [facility] 2Result Comment: [09/02/2014] Got at [facility] 3Result Comment: 2022-12-04: Historical information-source unspecified 4Result Comment: 2022-12-04: Historical information-source unspecified 5Result Comment: 2021-05-12: Historical information-source unspecified 6Result Comment: 2021-05-12: Historical information-source unspecified 7Result Comment: Yolanda Zuluaga MA 8Result Comment: 2021-05-12: Historical information-source unspecified 9Result Comment: 2021-05-12: Historical information-source unspecified Medications acyclovir 400 mg oral tablet Start: 03/13/21 10:25:00 AM EDT, 1 tab, PO, once or twice a year PRN Start Date: 03/13/21 Status: Ordered Arimidex 1 mg oral tablet Start: 04/04/16 12:50:00 PM EDT, 1 tab, PO, Daily Start Date: 04/04/16 Status: Ordered biotin 5 mg oral capsule Start: 12/06/14 4:42:00 PM EDT, 1 cap, PO, Daily Start Date: 12/06/14 Status: Ordered Calcium 600+D Start: 03/25/13 1:57:00 PM EDT, 1 tab, PO, Daily Start Date: 03/25/13 Status: Ordered Fosamax 70 mg oral tablet Start: 03/13/21 10:25:00 AM EDT, 1 tab, PO, q7days Start Date: 03/13/21 Status: Ordered gabapentin 300 mg oral capsule Start: 05/04/24 9:45:00 AM EDT, 1 cap, PO, qhs, Disp# 90 cap, Refills: 3, Pharmacy: [id number] Start Date: 05/04/24 Stop Date: 04/29/25 Status: Ordered hydroCHLOROthiazide 12.5 mg oral capsule Start: 05/04/24 9:46:00 AM EDT, 1 cap, PO, Daily, Disp# 90 cap, Refills: 4, Pharmacy: [id number] Start Date: 05/04/24 Status: Ordered lisinopril 40 mg oral tablet Start: 05/04/24 9:46:00 AM EDT, 1 tab, PO, Daily, Disp# 90 tab, Refills: 4, 90 day supply requested, Pharmacy: [id number] Start Date: 05/04/24 Status: Ordered LORazepam 0.5 mg oral tablet Start: 04/01/24 9:50:00 AM EDT, 0.5 mg =, PO, qhs, Disp# 45 tab, Refills: 0, Note to Pharmacy: not sent, updated EMR for 1/2 tab dosing starting 04/01/2024, PRN: as needed for anxiety, other Start Date: 04/01/24 Stop Date: 06/30/24 Status: Ordered Metamucil Start: 04/01/24 9:32:00 AM EDT Start Date: 04/01/24 Status: Ordered Tylenol Extra Strength 500 mg oral tablet Start: 06/17/20 10:22:00 AM EDT, 2 tab, PO, q8h, Alternate every 4 hours with Ibuprofen, PRN: as needed for fever Start Date: 06/17/20 Status: Ordered Vitamin C Start: 05/24/20 8:07:00 AM EDT, 1 tab, PO, Daily Start Date: 05/24/20 Status: Ordered Mental Status 05/04/24 Barriers to Learning one year None evide nt Mandatory Health Literacy Documentation Yes Health Literacy Communication Barriers N ever Primary Language Malaysian Problem List Condition Confirmation Course Effective Dates Status H ealth Status Informant Anxiety Confirmed Active Arthritis Confirmed Active BCC (basal cell carcinoma of skin) Confirmed Active Breast cancer Confirmed Active Renal cyst Confirmed Active Dysplasia of tongue Confirmed Active Hypertension Confirmed Active Hypertension Confirmed Active Internal hemorrhoid Confirmed Active Lumbago with sciatica Confirmed Active Multinodular goiter Confirmed Active Frequent PVCs Confirmed Active Osteoarthritis of left hip Confirmed Active Chemotherapy-induced peripheral neuropathy Confirmed Active SI joint arthritis Confirmed Active Sciatic pain Confirmed Active Scoliosis Confirmed Active Strain of right trapezius muscle Confirmed Active Weight monitoring Confirmed Active Diagnosis Diagnosis Type Effective Dates Health Status Clinical Service Informant Chemotherapy-willy tricia peripheral neuropathy Discharge Diagnosis 05/04/24 Non-Specified Procedures Procedure Date Related Diagnosis Body Site Status Shave biopsy and cauterizati on of skin 1 11/26/19 Completed TOTAL HIP ARTHROPLASTY- Left 2 05/13/19 Completed elliptical excision of melan khadijah with complex repair 3 04/24/17 Completed Bone density scan 04/18/17 Complet ed Shave biopsy of skin 04/09/17 Comp leted Shave biopsy and cauterization of skin 12/18/16 Completed Phacoemulsification with int raocular lens implantation 04/27/15 Completed Phacoemulsification of lens and insertion of intraocular lens 04/13/15 Completed Cataract extraction 03/2015 Compl eted Breast lumpectomy 05/29/13 Complet ed Breast lumpectomy 12/12/09 Complet ed Dilation and curettage 1999 Co mpleted [place] tooth 1999 Completed lump of the right elbow 1982 C ompleted Tubal ligation 1973 Completed Spinal fusion 09/30/55 Completed Colonoscopy Completed Cyst 6 Completed Tonsillectomy and adenoidectomy Completed 1left medial thigh 2Left uncemented ceramic on highly cross-linked polyethylene total hip arthroplasty. 3Malignant melanoma in situ 4Left eye cataract 5Cataract removal, right eye 6cyst removal of elbow Vital Signs Most recent to oldest [Reference Range]: 1 Patient Weight 60 kg (05/04/24 9:25 AM) Heart Rate 92 bpm (05/04/24 9:25 AM) Respiratory Rate 20 br/min (05/04/24 9:25 AM) Blood Pressure 115/68mmHg (05/04/24 9:25 AM) Social History Social History Type Response Tobacco Former smoker, Cigar ettes 1 Smoking Status Never smoked cigaret jose Sex Female Sex Representation Female (finding) 1Quit 35 years ago [facility] Outpt Note * MD Harsh, Kushal Singh: PERFORM Event Display: [facility] Outpt Note Authored Date: [id number] Chief Complaint f/u on gabapentin, taking 200mg, doing better w/ one recent flare while traveling History of Present Illness Aliya is an 78yoF here today to f/u post-chemo neuropathy. Last seen 04/01 for same at which point she was placed on gabapentin 100mg qhs withplan to titrate to 200mg qhs with concurrent taper of lorazepam to 0.25mg given risks of concurrent use. She overall has achieved 200mg dosing and is tolerating this well with overall improvement but notes she had a recent flare-up of symptoms while travelling for vacation. Reports pain 3/10 in intensity presently. She notes her flare-ups are bad but triggered by activity then subside. Affects the same 2 toes as her neuropathy. Tingling overall at baseline is almost fully resolved. She's doing 0.25mg lorazepam and tolerating this but advised to stay on this for at least 3 months before advancing further. Review of Systems 07/13pt ROS reviewed/negative except as noted in HPI. Physical Exam Vitals & Measurements HR:92(Monitored) RR:20 BP:115/68 SpO2:97% WT:60.000kg(Dosing) WT:60kg PHQ2 Data(Data Documented on:05/04/2024 09:24) Emotional health assessment NEGATIVE GENERAL APPEARANCE: The patient is alert, oriented and in no acute distress. VITALS: As above. HEENT: Head is normocephalic/atraumatic. CARDIOVASCULAR: +2 radial pulses. LUNGS: Respirations even and unlabored. EXTREMITIES: No cyanosis, clubbing or edema. NEUROLOGICAL: Grossly non-focal exam. SKIN: Warm and dry without any rash. Assessment/Plan 1.Chemotherapy-induced peripheral neuropathy - Continue to take lorazepam 0.25mg daily x 2-3 months then switch to qod or intermittent dosing, once able to taper off it over another 2-3 months can further increase gabapentin as indicated - Change gabapentin to 300mg qhsgoing forward, new rx sent f/u as scheduled 05/2024. 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 Hypertension Hypertension Internal hemorrhoid Lumbago with sciatica Multinodular goiter Osteoarthritis of left hip Renal cyst Sciatic pain Scoliosis SI joint arthritis Strain of right trapezius muscle Weight monitoring Resolved Actinic Keratosis Acute anxiety Benign hypertension Eustachian tube dysfunction Neck tightness Postnasal drip Pressure sensation in left ear Rectal bleeding Reflux Schistosis Sinus congestion Sinus tachycardia Tinea corporis Tongue ulcer Procedure/Surgical History Shave biopsy and cauterization of skin| Service Date: 11/26/2019TOTAL HIP ARTHROPLASTY- Left|Service Date: 05/13/2019elliptical excision of melanoma with complex repair| Service Date: 04/24/2017Bone density scan| Service Date: 04/18/2017Shave biopsy of skin| Service Date: 04/09/2017Shave biopsy and cauterization of skin| Service Date: 12/18/2016Phacoemulsification with intraocular lens implantation| Service Date: 04/27/2015Phacoemulsification of lens and insertion of intraocular lens| Service Date: 04/13/2015Cataract extraction| Service Date: 03/2015Breast lumpectomy| Service Date: 05/29/2013reast lumpectomy| Service Date: 12/12/2009Dilation and curettag e| Service Date: 1999[place] tooth| Service Date: 1999lump of the right elbow| Service Date: 1982Tubal ligation| Service Date: 1973Spinal fusion| Service Date: 6CystColonoscopyTonsillectomy and adenoidectomy Medications acetaminophen(Tylenol Extra Strength 500 mg oral tablet), 1000 mg= 2 tab, PO, q8h, PRN acyclovir(acyclovir 400 mg oral tablet), 400 mg= 1 tab, PO alendronate(Fosamax 70 mg oral tablet), 70 mg= 1 tab, PO, q7days anastrozole(Arimidex 1 mg oral tablet), 1 mg= 1 tab, PO, Daily ascorbic acid(Vitamin C), 1 tab, PO, Daily biotin(biotin 5 mg oral capsule), 5 mg= 1 cap, PO, Daily calcium and vitamin D combination(Calcium 600+D), 1 tab, PO, Daily gabapentin(gabapentin 300 mg oral capsule), 300 mg= 1 cap, PO, qhs, 3 refills hydroCHLOROthiazide(hydroCHLOROthiazide 12.5 mg oral capsule), 1 cap, PO, Daily, 4 refills lisinopril(lisinopril 40 mg oral tablet), 40 mg= 1 tab, PO, Daily, 4 refills LORazepam(LORazepam 0.5 mg oral tablet), 0.5 mg, PO, qhs, PRN psyllium(Metamucil) Allergies traMADol (Mild)Lightheaded Adhesive bandageRash amLODIPineTinnitus codeineConfusion, Nausea Social History Smoking Status Never smoked cigarettes Tobacco Use:Former smoker Type:Cigarettes - Comments: Quit 35 years ago Family History Brain tumor..: Brother. Breast cancer: Maternal Aunt. Heart attack: Father. Heart disease: MGM. High blood pressure: Mother. Stroke: MGF and PGF. Health Status Family Member(s) Immunizations Vaccine Date Status influenza virus vaccine, inactivated 07/04/2023 Recorded SARS-CoV-2 (COVID-19) mRNA-vacc - [id number] 07/04/2023 Recorded RSV Vaccine Unspecified 06/13/2023 Recorded measles/mumps/rubella virus vaccine 12/03/2022 Recorded tetanus/diphtheria/pertuss, acel (Tdap) 11/23/2022 Recorded Comments : 2022-12-04: Historical information-source unspecified SARS-CoV-2 mRNA-1273 (6y+ bivalent) 08/15/2022 Recorded Comments : 2022-12-04: Historical information-source unspecified influenza virus vaccine, inactivated 07/10/2022 Recorded SARS-CoV-2 (COVID-19) mRNA-1273 vaccine 04/2021 Recorded SARS-CoV-2 (COVID-19) mRNA-1273 vaccine 11/27/2020 Recorded Comments : 2021-05-12: Historical information-source unspecified SARS-CoV-2 (COVID-19) mRNA-1273 vaccine 10/23/2020 Recorded Comments : 2021-05-12: Historical information-source unspecified pneumococcal 23-valent vaccine 08/11/2020 Given Comments : Yolanda Zuluaga MA influenza virus vaccine, inactivated 07/07/2020 Recorded Comments : [facility] 20-21 zoster vaccine, inactivated 06/24/2020 Recorded Comments : 2021-05-12: Historical information-source unspecified zoster vaccine, inactivated 04/12/2020 Recorded Comments : 2021-05-12: Historical information-source unspecified pneumococcal 13-valent vaccine 12/30/2015 Given influenza virus vaccine, inactivated 07/14/2014 Recorded Comments : [09/02/2014] Got at [facility] tetanus/diphtheria/pertuss, acel (Tdap) 03/22/2014 Given pneumococcal 23-valent vaccine 12/08/2007 Recorded Recommendations Health Maintenance Pending(in the next year) OverDue Medicare Annual Wellness Visit due07/26/17nd every 1year Lipid Screening due06/18/21and every 1826day Adult Influenza Vaccine due03/29/24and every 1year Due Adult COVID-19 Vaccination due05/04/24Unknown Frequency Adult Social Determinants of Health Screening due05/04/24Unknown Frequency Satisfied(in the past 1 year) Satisfied Adult Influenza Vaccine on07/04/23.Satisfied by [facility]I Pierre Angela Body Mass Index on03/17/24.Satisfied by SHI Shipman Erin Electronic Signature on File Electronically Reviewed/Signed by: Kushal House MD Author Signature Dt/Tm:05/04/2024 09:54 AM Department of Family Medicine [facility] Patient Care team information Care Team Personnel Name: Daksha Martin Kayla Position: Pharmacist Member Role: Pharmacy - Lifetime Name: MD Harsh, Kushal Singh Position: Physician Member Role: Primary Care Provider Address: [address] [place] [address] [place] Care Team Related Persons Name: TL MONCADA"
--- OUTSIDE RECORDS SUMMARY | 2024-06-01 12:37 | External Medical Summary | Continuity of Care Document ---
Author Name Unknown Organization [address] [id number] Care Team Providers Care Ornamental Metal Erector Name Role Phone HouseLornekirsty Samantha Primary Care Physician [phone] [id number] Date(s): 03/17/24 - 03/17/[address] [address] [phone] Encounter Diagnosis Body mass index [BMI] 22.0-22.9, adult(Discharge Diagnosis) - 03/17/24 Internal hemorrhoid(Discharge Diagnosis) - 03/17/24 Discharge Disposition: Home or Self Care Attending Physician: MD Starks Audrey Allergies, Adverse Reactions, Alerts Substance Criticality Severity Reaction Reaction Severity Status codeine Confusion Nausea Active bacitracin erythema Active amLODIPine Tinnitus Active traMADol Unable to assess criticality Mild Lightheaded Active bacitracin/neomycin/ polymyxin B topical erythema Active Adhesive bandage Rash Act latonya Assessment and Plan Extracted from: Title:Clinical Document Author:MD Starks Aud rey Date:03/17/24 COLORECTAL OUTPATIENT NOTE Name: DEEPTHI MONCADA Patient Number: [id number] : 1945 Date of Service: 03/17/2024 Chief Complaint: Rectal bleeding HPI: 78-year-old female with a history of hypertension, breast cancer, GERD and osteoporosis presenting for evaluation of rectal bleeding and hemorrhoidal disease. She reports that she has no symptoms of pain, itching, or burning but since late December and early January has developed some rectal bleeding. The first episode resulted in a large amount of blood in the toilet. She has a recent history of breast cancer, undergoing a lumpectomy in 2019 in the left breast followed by lumpectomy in 2022 in the right breast. She notes that the pathologies were distinct, and that after the right breast cancer surgery she did undergo full radiation as well as cytotoxic chemotherapy, and experienced a lot of side effects with this. Her last colonoscopy was about 10 years ago and was a bad experience, therefore she has not repeated this since then. She does have a niece with colon cancer but no other family history of colon or rectal cancer. Current Home Meds: (Last Updated 03/17 10:42) LORazepam (LORazepam 0.5 mg oral tablet) 0.5 mg PO qhs PRN: as needed for anxiety acetaminophen (Tylenol Extra Strength 500 mg oral tablet) 1,000 mg PO q8h PRN: as needed for fever Alternate every 4 hours with Ibuprofen acyclovir (acyclovir 400 mg oral tablet) 400 mg PO once or twice a yearPRN alendronate (Fosamax 70 mg oral tablet) 70 mg PO q7days anastrozole (Arimidex 1 mg oral tablet) 1 mg PO Daily ascorbic acid (Vitamin C) 1 tab PO Daily biotin (biotin 5 mg oral capsule) 5 mg PO Daily calcium and vitamin D combination (Calcium 600+D) 1 tab PO Daily docusate (Colace) 100 mg PO bid prn esomeprazole (esomeprazole 40 mg oral delayed release capsule) 40 mg PO Daily hydroCHLOROthiazide (hydroCHLOROthiazide 12.5 mg oral capsule) 1 cap PO Daily lisinopril (lisinopril 40 mg oral tablet) 40 mg PO Daily 90 day supply requested polyethylene glycol 3350 (MiraLax oral powder for reconstitution) 17 g PO every fourth day Allergies and Sensitivities: amLODIPine(Tinnitus) bacitracin/neomycin/polymyxin B topical(erythema) bacitracin(erythema) traMADol(Lightheaded) Adhesive bandage(Rash) codeine(Nausea) codeine(Confusion) Past Medical History: Problems: Frequent PVCs Strain of right trapezius muscle SI joint arthritis Dysplasia of tongue Renal cyst Multinodular goiter Osteoarthritis of left hip Hypertension BCC (basal cell carcinoma of skin) Lumbago with sciatica Sciatic pain Internal hemorrhoid Scoliosis Arthritis Weight monitoring Hypertension Breast cancer Anxiety OBJECTIVE Vitals: Last Updated 03/17/24 10:44 Date Temp BP Location Pulse RR SpO2 Pain 03/17/24 122/68 Left Arm 03/17/24 0 02/18/24 36.3 16 99 Vital Signs are the last 3 documented. No Orthostatic Data Available Height and Weight: Last Updated 03/17/24 10:44 Date BMI Wt(kg) Wt(lb) Method Ht(cm) (ft-in) Method 03/17/24 22.65 59.8 132 Standing Scale 162.5 5-4 Patient stated 02/18/24 22.91 60.5 133 Standing Scale 162.5 5-4 Standing 02/17/24 23.25 61.4 135 Standing Scale 162.5 5-4 Standing Heights and Weights are the last 3 documented. Physical Exam General: Well-appearing, no acute distress HEENT: Anicteric sclera, MMM Resp: Nonlabored respirations CV: Nontachycardic Extremities: Warm and well perfused Neuro: No gross deficits. Appropriately answers questions. Anorectal exam: Patient examined in presence of credit interviewer Radha SPORTS PHYSICIAN. No external masses other than diminuitive skin tags, or skin changes were noted. No evidence of fissure or fistula. Digital rectal exam did not reveal any palpable masses or defects. No blood noted on exam. Anoscopy was performed that showed healthy appearing mucosa with no internal masses and mildly enlarged internal hemorrhoids without any bleeding. 30 Day Labs: No 30 Day Lab Data. ASSESSMENT: 78 year old female with mild internal hemorrhoidal disease. Patient was counseled on maintaining good toileting habits, starting with maintaining a fiber regimen consisting of psyllium husk of approximately 30 g/day. This is to be accompanied by at least 6 to 8 glasses of water to ensure that stool does not become too hard and further exacerbate hemorrhoidal symptoms. Should she feel a flare coming on, our next recommendation is to maintain hydration and perform sitz baths 2-3 times per day. Using an over the counter hemorrhoidal cream in the short-term during a flare, or obtaining Anusol suppositories from our office, is also an option during acute flares but should not be used for prolonged period of time. We also discussed minimizing toilet time to 3-5 minutes when moving bowels. Lastly, we discussed the role of colonoscopy, which she strongly does not want at this time. She will follow up with us as needed. 32 minutes were spent in chart review, counseling, and coordinati on of care, including discussion of diagnosis, upcoming further imaging and laboratory modalities, as well as treatment plan and approach with the patient and available support members. Immunizations Given and Recorded Vaccine Date Status Refusal Reason influenza virus vaccine, inactivated 07/04/23 Dionisio rded influenza virus vaccine, inactivated 07/10/22 Dionisio rded influenza virus vaccine, inactivated 1 07/07/20 Re corded influenza virus vaccine, inactivated 2 07/14/14 Re corded SARS-CoV-2 (COVID-19) mRNA-vacc - [id number] 07/04/23 Recorded RSV Vaccine Unspecified 06/13/23 Recorded [...] pneumococcal 13-valent vaccine 12/30/15 Given 1Result Comment: [facility]- [facility]uz[facility] - 2Result Comment: [09/02/2014] Got at [facility] 3Result Comment: 2022-12-04: Historical information-source unspecified 4Result [...] PO, Daily Start Date: 03/25/13 Status: Ordered Colace Start: 03/13/21 10:24:00 AM EDT, 100 mg =, PO, bid, prn Start Date: 03/13/21 Status: Ordered esomeprazole 40 mg oral delayed release capsule Start: 12/09/23 1:29:00 PM EDT, 1 cap, PO, Daily, Disp# 30 cap, Refills: 1, Pharmacy: [id number] Start Date: 12/09/23 Stop Date: 02/07/24 Status: Ordered Fosamax 70 mg oral tablet Start: 03/13/21 10:25:00 AM EDT, 1 tab, PO, q7days Start Date: 03/13/21 Status: Ordered hydroCHLOROthiazide 12.5 mg oral capsule Start: 12/06/23 11:27:00 AM EST, 1 cap, PO, Daily, Disp# 90 cap, Refills: 0, Pharmacy: [id number] Start Date: 12/06/23 Status: Ordered lisinopril 40 mg oral tablet Start: 12/06/23 11:27:00 AM EST, 1 tab, PO, Daily, Disp# 90 tab, Refills: 2, 90 day supply requested,Pharmacy: [id number] Start Date: 12/06/23 Status: Ordered LORazepam 0.5 mg oral tablet Start: 12/06/23 11:30:00 AM EST, 1 tab, PO, qhs, Disp# 90 tab, Refills: 2, PRN: as needed for anxiety, Pharmacy: [id number] Start Date: 12/06/23 Stop Date: 09/01/24 Status: Ordered MiraLax oral powder for reconstitution Start: 12/18/16 2:28:00 PM EDT, 17 g =, PO, every fourth day Start Date: 12/18/16 Status: Ordered Tylenol Extra Strength 500 mg oral tablet Start: 06/17/20 10:22:00 AM EDT, 2 tab, PO, q8h, Alternate every 4 hours with Ibuprofen, PRN: as needed for fever Start Date: 06/17/20 Status: Ordered Vitamin C Start: 05/24/20 8:07:00 AM EDT, 1 tab, PO, Daily Start Date: 05/24/20 Status: Ordered Mental Status 03/17/24 Barriers to Learning one year None evide nt Mandatory Health Literacy Documentation Yes Communication Barrier Present No Health Literacy Communication Barriers N ever Primary Language Togolese Problem List Condition Confirmation Course Effective Dates [...] Active Osteoarthritis of left hip Confirmed Active SI joint arthritis Confirmed Active Sciatic pain Confirmed Active Scoliosis Confirmed Active Strain of right trapezius muscle Confirmed Active Weight monitoring Confirmed Active Diagnosis Diagnosis Type Effective Dates Health Status Clinical Service Informant Body mass index [BMI] 22.0-22.9, adult Discharge Diagnosis 03/17/24 Non-Specified Internal hemorrhoid Discharge Diagnosis 03/17/24 Procedures Procedure Date Related Diagnosis Body Site Status Shave biopsy and cauterizati on of skin 1 11/26/19 Completed TOTAL HIP ARTHROPLASTY- Left 2 05/13/19 Completed elliptical excision of melan khadijah with complex repair 3 04/24/17 Completed Bone density scan 04/18/17 Complet ed Shave biopsy of skin 04/09/17 Comp leted Shave biopsy and cauterization of skin 12/18/16 Completed Phacoemulsification with int raocular lens implantation 4 04/27/15 Completed Phacoemulsification of lens and insertion of intraocular lens 5 04/13/15 Completed Cataract extraction 03/2015 Compl eted Breast lumpectomy 05/29/13 Complet ed Breast lumpectomy 12/12/09 Complet ed Dilation and curettage 1999 Co mpleted [place] tooth 1999 Completed lump of the right [...] Most recent to oldest [Reference Range]: 1 Height 162.5 cm (03/17/24 10:44 AM) Patient Weight 59.8 kg (03/17/24 10:44 AM) Body Mass Index 22.65 kg/m2 (03/17/24 10:44 AM) Blood Pressure 122/68mmHg (03/17/24 10:44 AM) Cuff Pulse Pressure 54 mmHg (03/17/24 10:44 AM) BP Location # 1 Left Arm (03/17/24 10:44 AM) Social History Social History Type Response Tobacco Former smoker, Cigar ettes 1 Smoking Status Former Smoker, quit > 1 yr Sex Female 1Quit 35 years ago Colorectal Outpt Note * MD Starks Audrey: PERFORM Event Display: Colorectal Outpt Note Authored Date: COLORECTAL OUTPATIENT NOTE Name: DEEPTHI MONCADA Patient Number: [id number] : 1945 Date of Service: 03/17/2024 Chief Complaint: Rectal bleeding HPI: 78-year-old female with a history of hypertension, breast cancer, GERD and osteoporosis presenting for evaluation of rectal bleeding and hemorrhoidal disease. She reports that she has no symptoms of pain, itching, or burning but since late December and early January has developed some rectal bleeding. The first episode resulted in a large amount of blood in the toilet. She has a recent history of breast cancer, undergoing a lumpectomy in 2019 in the left breast followed by lumpectomy in 2022 in the right breast. She notes that the pathologies were distinct, and that after the right breast cancer surgery she did undergo full radiation as well as cytotoxic chemotherapy, and experienced a lot ofside effects with this. Her last colonoscopy was about 10 years ago and was a bad experience, therefore she has not repeated this since then. She does have a niece with colon cancer but no other family history of colon or rectal cancer. Current Home Meds: (Last Updated 03/17 10:42) LORazepam (LORazepam 0.5 mg oral tablet) 0.5 mg PO qhs PRN: as needed for anxiety acetaminophen (Tylenol Extra Strength 500 mg oral tablet) 1,000 mg PO q8h PRN: as needed for fever Alternate every 4 hours with Ibuprofen acyclovir (acyclovir 400 mg oral tablet) 400 mg PO once or twice a yearPRN alendronate (Fosamax 70 mg oral tablet) 70 mg PO q7days anastrozole (Arimidex 1 mg oral tablet) 1 mg PO Daily ascorbic acid (Vitamin C) 1 tab PO Daily biotin (biotin 5 mg oral capsule) 5 mg PO Daily calcium and vitamin D combination (Calcium 600+D) 1 tab PO Daily docusate (Colace) 100 mg PO bid prn esomeprazole (esomeprazole 40 mg oral delayed release capsule) 40 mg PO Daily hydroCHLOROthiazide (hydroCHLOROthiazide 12.5 mg oral capsule) 1 cap PO Daily lisinopril (lisinopril 40 mg oral tablet) 40 mg PO Daily 90 day supply requested polyethylene glycol 3350 (MiraLax oral powder for reconstitution) 17 g PO every fourth day Allergies and Sensitivities: amLODIPine(Tinnitus) bacitracin/neomycin/polymyxin B topical(erythema) bacitracin(erythema) traMADol(Lightheaded) Adhesive bandage(Rash) codeine(Nausea) codeine(Confusion) Past Medical History: Problems: Frequent PVCs Strain of right trapezius muscle SI joint arthritis Dysplasia of tongue Renal cyst Multinodular goiter Osteoarthritis of left hip Hypertension BCC (basal cell carcinoma of skin) Lumbago with sciatica Sciatic pain Internal hemorrhoid Scoliosis Arthritis Weight monitoring Hypertension Breast cancer Anxiety OBJECTIVE Vitals: Last Updated 03/17/24 10:44 Date Temp BP Location Pulse RR SpO2 Pain 03/17/24 122/68 Left Arm 03/17/24 0 02/18/24 36.3 16 99 Vital Signs are the last 3 documented. No Orthostatic Data Available Height and Weight: Last Updated 03/17/24 10:44 Date BMI Wt(kg) Wt(lb) Method Ht(cm) (ft-in) Method 03/17/24 22.65 59.8 132 Standing Scale 162.5 5-4 Patient stated 02/18/24 22.91 60.5 133 Standing Scale 162.5 5-4 Standing 02/17/24 23.25 61.4 135 Standing Scale 162.5 5-4 Standing Heights and Weights are the last 3 documented. Physical Exam General: Well-appearing, no acute distress HEENT: Anicteric sclera, MMM Resp: Nonlabored respirations CV: Nontachycardic Extremities: Warm and well perfused Neuro: No gross deficits. Appropriately answers questions. Anorectal exam: Patient examined in presence of credit interviewer Radha OSULLIVAN. No external masses other than diminuitive skin tags, or skin changes were noted. No evidence of fissure or fistula. Digital rectal exam did not reveal any palpable masses or defects. No blood noted on exam. Anoscopy was performed that showed healthy appearing mucosa with no internal masses and mildly enlarged internal hemorrhoids without any bleeding. 30 Day Labs: No 30 Day Lab Data. ASSESSMENT: 78 year old female with mild internal hemorrhoidal disease. Patient was counseled on maintaining good toileting habits, starting with maintaining a fiber regimen consisting of psyllium husk of approximately 30 g/day. This is to be accompanied by at least 6 to 8 glasses of water to ensure that stool does not become too hard and further exacerbate hemorrhoidal symptoms. Should she feel a flare coming on, our next recommendation is to maintain hydration and perform sitz baths 2-3 timesper day. Using an over the counter hemorrhoidal cream in the short-term during a flare, or obtaining Anusol suppositories from our office, is also an option during acute flares but should not be usedfor prolonged period of time. We also discussed minimizing toilet time to 3-5 minutes when moving oliva wels. Lastly, we discussed the role of colonoscopy, which she strongly does not want at this time. She will follow up with us as needed. 32 minutes were spent in chart review, counseling, and coordination of care, including discussion of diagnosis, upcoming further imaging and laboratory modalities, as well as treatment plan andapproach with the patient and available support members. Electronic Signature on File Electronically Reviewed/Signed by: Chelly Starks MD Author Signature Dt/Tm:03/17/2024 11:56 AM Division of Colorectal Surgery [place] Patient Care team information Care Team Personnel Name: Daksha Martin Kayla Position: Pharmacist Member Role: Pharmacy - Lifetime Name: MD Harsh, Kushal Singh Position: Physician Member Role: Primary Care Provider Address: Address: [address] [place] [address] [place] Care Team Related Persons Name: TL MONCADA Address: home [address] [place] [phone]
--- OUTSIDE RECORDS SUMMARY | 2024-06-01 12:37 | External Medical Summary | Continuity of Care Document ---
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) - 04/01/24 Breast cancer(Discharge Diagnosis) - 04/01/24 Anxiety(Discharge Diagnosis) - 04/01/24 Discharge Disposition: Home or Self Care Attending Physician: MD House Ravishankar E Referring Physician: MD House Ravishankar E Allergies, Adverse Reactions, Alerts Substance Criticality Severity Reaction Reaction Severity Status codeine Confusion Nausea Active traMADol Unable to assess criticality Mild Lightheaded Active Adhesive bandage Rash Act latonya amLODIPine Tinnitus Active Assessment and Plan Extracted from: Title:Office Visit Note Author:MD House Ravishan kar E Date:04/01/24 1.Chemotherapy-induced per ipheral neuropathy - Will trial gabapentin 100mg qhs andtitrate to 200mg qhsafter 5-7 days as tolerated - Reviewed risks of concurrent use of lorazepam 0.5mg qhs, will taper this to 0.25mg qhsas noted below - Suspect synergistic effect of gabapentin will help sleep/anxiety concurrently - Consider further taper of benzo as needed to ramp up gabapentin - Pain management consult pending 2.Breast cancer - Causative etiology of above 3.Anxiety - As above, taper off lorazepam to 0.25mg for at least 2-3 months then can further taper to QOD x 2-3 months before discontinuing (As indicated for gabapentin titration) - Discussed withdrawal and interaction signs to watch for f/u 1 month for re-check. Time: 30mins 5 - pre-visit chart review [...] 07/14/14 Re corded SARS-CoV-2 (COVID-19) mRNA-vacc - [id number] 07/04/23 Recorded RSV Vaccine Unspecified 06/13/23 Recorded [...] pneumococcal 13-valent vaccine 12/30/15 Given 1Result Comment: [facility] - 2Result Comment: [09/02/2014] Got at [facility] 3Result Comment: 2022-12-04: Historical information-source unspecified 4Result [...] q7days Start Date: 03/13/21 Status: Ordered gabapentin 100 mg oral capsule Start: 04/01/24 9:47:00 AM EDT, 2 cap, PO, qhs, Disp# 60 cap, Refills: 2, start 1tab qhs, and increase to 2tab qhs as tolerated in 1 week, Pharmacy: [id number] Start Date: 04/01/24 Stop Date: 06/30/24 Status: Ordered hydroCHLOROthiazide 12.5 mg oral capsule Start: 12/06/23 11:27:00 AM EST, 1 cap, PO, Daily, Disp# 90 cap, Refills: 0, Pharmacy: [id number] Start Date: 12/06/23 Status: Ordered lisinopril 40 mg oral tablet Start: 12/06/23 11:27:00 AM EST, 1 tab, PO, Daily, Disp# 90 tab, Refills: 2, 90 day supply requested,Pharmacy: [id number] Start Date: 12/06/23 Status: [...] Start Date: 05/24/20 Status: Ordered Mental Status 04/01/24 Barriers to Learning one year None evide nt Mandatory Health Literacy Documentation Yes Health Literacy Communication Barriers N ever Primary Language Lithuanian Problem List Condition Confirmation Course Effective Dates [...] Effective Dates Health Status Clinical Service Informant Breast cancer Discharge Diagnosis 04/01/24 Non-Specified Anxiety Discharge Diagnosis 04/01/24 Non-Specified Chemotherapy-willy tricia peripheral neuropathy Discharge Diagnosis 04/01/24 Non-Specified Procedures Procedure Date Related Diagnosis Body [...] Breast lumpectomy 05/29/13 Complet ed Breast lumpectomy 3/15/10 Complet ed Dilation and curettage 1999 Co mpleted [place] tooth 1999 Completed lump of the right elbow 1982 C ompleted Tubal ligation 1974 Completed Spinal fusion 09/30/55 Completed Colonoscopy Completed Cyst 6 Completed Tonsillectomy and adenoidectomy Completed 1left medial thigh 2Left uncemented ceramic on highly cross-linked polyethylene total hip arthroplasty. 3Malignant melanoma in situ 4Left eye cataract 5Cataract removal, right eye 6cyst removal of elbow Vital Signs Most recent to oldest [Reference Range]: 1 Patient Weight 61 kg (04/01/24 9:32 AM) Heart Rate 98 bpm (04/01/24 9:32 AM) Respiratory Rate 20 br/min (04/01/24 9:32 AM) Blood Pressure 128/80mmHg (04/01/24 9:32 AM) Social History Social History Type Response Tobacco Former smoker, Cigar ettes 1 Smoking Status Former Smoker, quit > 1 yr Sex Female 1Quit 35 years ago FCM Outpt Note * MD Harsh, Kushal Singh: PERFORM Event Display: FCM Outpt Note Authored Date: Chief Complaint neuropathy in bilat toes (2-5, not great toes), tingling during the day, extreme burning pain at night History of Present Illness Aliya is an 78yoF with chronic post-chemo neuropathy here today to discuss neuropathic pain medications. She has struggled with bilateral foot pain and is pending consultation with pain management at [facility] to discuss options for this -- still hasn't heard from them. She has tingling during the day but more severe pain/burning at night time. She has history notable for chronic anxiety on benzodiazepines from prior PCP that she is long since become dependent on and wishes to continue acknowledging risks. This complicates use of neuropathic pain medications due to increased risk of confusion/dizziness/sedation particularly in the aged. She has history of breast CA in remission now on anastrazole chronically but previously treated with chemo which is felt to be the trigger but only got this bad a few months ago. Was more intermittent/rare but now getting more constant/daily. Review of Systems ROS reviewed/negative except as noted in HPI. Physical Exam Vitals & Measurements HR:98(Monitored) RR:20 BP:128/80 SpO2:98% WT:61kg WT:61.000kg(Dosing) PHQ2 Data(Data Documented on:04/01/2024 09:33) Emotional health assessment NEGATIVE GENERAL APPEARANCE: The patient is alert, oriented and in no acute distress. VITALS: As above. HEENT: Head is normocephalic/atraumatic. CARDIOVASCULAR: +2 radial pulses. LUNGS: Respirations even and unlabored. EXTREMITIES: No cyanosis, clubbing or edema. NEUROLOGICAL: Grossly non-focal exam. SKIN: Warm and dry without any rash. Assessment/Plan 1.Chemotherapy-induced peripheral neuropathy - Will trial gabapentin 100mg qhs andtitrate to 200mg qhsafter 5-7 days as tolerated - Reviewed risks of concurrent use of lorazepam 0.5mg qhs, will taper this to 0.25mg qhsas noted below - Suspect synergistic effect of gabapentin will help sleep/anxiety concurrently - Consider further taper of benzo as needed to ramp up gabapentin - Pain management consult pending 2.Breast cancer - Causative etiology of above 3.Anxiety - As above, taper off lorazepam to 0.25mg for at least 2-3 months then can further taper to QOD x 2-3 months before discontinuing (As indicated for gabapentin titration) - Discussed withdrawal and interaction signs to watch for f/u 1 month for re-check. Time: 30mins 5 - pre-visit chart review [...] ligation| Service Date: 1973Spinal fusion| Service Date: 09/30/1955ystColonoscopyTonsillectomy and adenoidectomy Medications acetaminophen(Tylenol Extra Strength 500 [...] combination(Calcium 600+D), 1 tab, PO, Daily gabapentin(gabapentin 100 mg oral capsule), 200 mg= 2 cap, PO, qhs, 2 refills hydroCHLOROthiazide(hydroCHLOROthiazide 12.5 mg oral capsule), 1 cap, PO, Daily lisinopril(lisinopril 40 mg oral tablet), 40 mg= 1 tab, PO, Daily, 2 refills LORazepam(LORazepam 0.5 mg oral tablet), 0.5 mg, PO, qhs, PRN psyllium(Metamucil) triamcinolone - AMB Provider Charge(Kenalog 40mg/mL - 10 mL vial - PROVIDER injection), 40 mg= 1 mL, intra-articular, ONCE Allergies traMADol (Mild)Lightheaded Adhesive bandageRash amLODIPineTinnitus codeineConfusion, Nausea Social History Smoking Status Former Smoker, quit > 1 yr Tobacco Use:Former smoker Type:Cigarettes - Comments: Quit 35 years ago Family History Brain tumor..: Brother. Breast cancer: Maternal Aunt. Heart attack: Father. Heart disease: MGM. High blood pressure: Mother. Stroke: MGF and PGF. Health Status Family Member(s) Immunizations Vaccine Date Status influenza virus vaccine, inactivated 07/04/2023 Recorded SARS-CoV-2 (COVID-19) mRNA-vacc - [id number] 07/04/2023 Recorded RSV Vaccine Unspecified 06/13/2023 Recorded [...] virus vaccine, inactivated 07/07/2020 Recorded Comments : [facility]- [facility] 20-21 zoster vaccine, inactivated 06/24/2020 Recorded Comments : 2021-05-12: Historical information-source unspecified zoster vaccine, inactivated 04/12/2020 Recorded Comments : 2021-05-12: Historical information-source unspecified pneumococcal 13-valent vaccine 12/30/2015 Given influenza virus vaccine, inactivated 07/14/2014 Recorded Comments : [09/02/2014] Got at [facility] tetanus/diphtheria/pertuss, acel (Tdap) 03/22/2014 Given pneumococcal 23-valent vaccine 12/08/2007 Recorded Recommendations Health Maintenance Pending(in the next year) OverDue Medicare Annual Wellness Visit due07/26/17nd every 1year Lipid Screening due06/18/21and every 1826day Due Adult Influenza Vaccine due03/29/24and every 1year Adult COVID-19 Vaccination due04/01/24Unknown Frequency Adult Social Determinants of Health Screening due04/01/24Unknown Frequency Satisfied(in the past 1 year) Satisfied Adult Influenza Vaccine on07/04/23.Satisfied by SHI Pierre Angela Body Mass Index on03/17/24.Satisfied by SHI Shipman Erin Electronic Signature on File Electronically Reviewed/Signed by: Kushal House MD Author Signature Dt/Tm:04/01/2024 10:01 AM Department of Family Medicine [facility] Patient Care team information Care Team Personnel Name: Daksha Martin Kayla Position: Pharmacist Member Role: Pharmacy - Lifetime Name: MD Harsh, Kushal Singh Position: Physician Member Role: Primary Care Provider Address: Address: [address] [place], [place] [id number] Care Team Related Persons Name: TL MONCADA Address: home [address] [place], [place] [address]SARA [phone]"
--- OUTSIDE RECORDS SUMMARY | 2024-06-01 12:38 | External Medical Summary | Continuity of Care Document ---
Author Name Unknown Organization [facility] [address] [place] [address] [place] [address] [phone] Care Team Providers Care Security Public Safety Officer Name Role Phone Kushal House Primary Care Physician [phone] Encounter [facility] [id number] Date(s): 02/18/24 - 02/18/[address] [facility] [address] [facility], [address] [phone] Encounter Diagnosis Body mass index [BMI] 22.0-22.9, adult(Discharge Diagnosis) - 02/18/24 Wheezing(Discharge Diagnosis) - 02/18/24 Acute cough(Discharge Diagnosis) - 02/18/24 Discharge Disposition: Home or Self Care Attending Physician: VIVEK Sprague Shari A Referring Physician: MD House Ravishankar E Allergies, Adverse Reactions, Alerts Substance Criticality Severity Reaction Reaction Severity Status codeine Confusion Nausea Active bacitracin erythema Active traMADol Unable to assess criticality Mild Lightheaded Active bacitracin/neomycin/ polymyxin B topical erythema Active Adhesive bandage Rash Act latonya amLODIPine Tinnitus Active Assessment and Plan Extracted from: Title:Office Visit Note Author:VIVEK Sprague, Luzma alex A Date:02/18/24 Acute cough Acute, goal resolution, likely viral, continue current management. Wheezing Acute, goal resolution, likely related to above, albuterol inhaler if needed. CXR if occurs again. Reassuring pulm exam today. RTC if persistent/worsening and or needing to use inhaler several times for re-eval Time: 22mins 5- pre-visit chart review 12- visit, inclusive of history, exam, and discussion of assessment/plan 5- post-visit documentation/orders/coordination of care Immunizations Given and Recorded Vaccine Date Status Refusal Reason influenza virus vaccine, inactivated 07/04/23 Dionisio rded influenza virus vaccine, inactivated 07/10/22 Dionisio rded influenza virus vaccine, inactivated 1 07/07/20 Re corded influenza virus vaccine, inactivated 2 07/14/14 Re corded SARS-CoV-2 (COVID-19) mRNA-vacc - [id number] 07/04/23 Recorded RSV Vaccine Unspecified 06/13/23 Recorded [...] 12/30/15 Given 1Result Comment: [facility] 2Result Comment: [09/02/2014] Got at [facility] 3Result Comment: 2022-12-04: Historical information-source unspecified 4Result [...] year PRN Start Date: 03/13/21 Status: Ordered albuterol CFC free 90 mcg/inh MDI Start: 02/18/24 10:37:00 AM EDT, 2 puff, inhaled, qid, Disp# 1 each, PRN: as needed for wheezing, Pharmacy: [id number] Start Date: 02/18/24 Status: Ordered Arimidex 1 mg oral tablet [...] Daily, Disp# 30 cap, Refills: 1, Pharmacy: [id number] Start Date: 12/09/23 Stop Date: 02/07/24 Status: Ordered Fosamax 70 mg oral tablet Start: 03/13/21 10:25:00 AM EDT, 1 tab, PO, q7days Start Date: 03/13/21 Status: Ordered hydroCHLOROthiazide 12.5 mg oral capsule Start: 12/06/23 11:27:00 AM EST, 1 cap, PO, Daily, Disp# 90 cap, Refills: 0, Pharmacy: [facility] Start Date: 12/06/23 Status: Ordered lisinopril 40 mg oral tablet Start: 12/06/23 11:27:00 AM EST, 1 tab, PO, Daily, Disp# 90 tab, Refills: 2, 90 day supply requested,Pharmacy: [facility] Start Date: 12/06/23 Status: Ordered LORazepam 0.5 mg oral tablet Start: 12/06/23 11:30:00 AM EST, 1 tab, PO, qhs, Disp# 90 tab, Refills: 2, PRN: as needed for anxiety, Pharmacy: [facility] Start Date: 12/06/23 Stop Date: 09/01/24 Status: Ordered MiraLax oral powder for reconstitution Start: 12/18/16 2:28:00 PM EDT, 17 g =, PO, every fourth day Start Date: 12/18/16 Status: Ordered Tessalon 200 mg oral capsule Start: 02/17/24 9:34:00 AM EDT, 1 cap, PO, tid, Disp# 42 cap, Refills: 0, Pharmacy: [id number] Start Date: 02/17/24 Stop Date: 03/02/24 Status: Ordered Tylenol Extra Strength 500 mg oral tablet Start: 06/17/20 10:22:00 AM EDT, 2 tab, PO, q8h, Alternate every 4 hours with Ibuprofen, PRN: as needed for fever Start Date: 06/17/20 Status: Ordered Vitamin C Start: 05/24/20 8:07:00 AM EDT, 1 tab, PO, Daily Start Date: 05/24/20 Status: Ordered Mental Status 02/18/24 Barriers to Learning one year None evide nt Mandatory Health Literacy Documentation Yes Health Literacy Communication Barriers N ever Primary Language Indonesian Problem List Condition Confirmation Course Effective Dates [...] Diagnosis Diagnosis Type Effective Dates Health Status Cl inical Service Informant Acute cough Discharge Diagnosis 02/18/24 Non-Specified Body mass index [BMI] 22.0-22.9, adult Discharge Diagnosis 02/18/24 Non-Specified Wheezing Discharge Diagnosis 02/18/24 Non-Specified Procedures Procedure Date Related Diagnosis Body [...] ed Dilation and curettage 1999 Co mpleted [place] tooth 1999 Completed lump of the right [...] oldest [Reference Range]: 1 Height 162.5 cm (02/18/24 10:20 AM) Patient Weight 60.5 kg (02/18/24 10:20 AM) Body Mass Index 22.91 kg/m2 (02/18/24 10:20 AM) Temperature [36.5-37.9 DegC] 36.3 DegC *LOW* (02/18/24 10:20 AM) Respiratory Rate 16 br/min (02/18/24 10:20 AM) Social History Social History Type Response Tobacco Former smoker, Cigar ettes 1 Smoking Status Never smoked cigaret jose Sex Female 1Quit 35 years ago FCM Outpt Note * VIVEK Sprague Shari A: MODIFY, PERFORM, MODIFY Event Display: FCM Outpt Note Authored Date: Chief Complaint Breathing problem, ribs hurt with cough. History of Present Illness 78 y.o. female here today for evaluation of wheeze. She heard it this a.m. Taking Tessalon Perles finding helpful, took at 0600 this a.m. Taking Coricidin also. Expectorated scant amount sputum this a.m. pale yellow. Review of Systems Constitutional: No fever, No chills,+ fatigue._ Respiratory: No shortness of breath_ Cardiovascular: no lightheadedness/presyncope, No chest pain, No palpitations._ Gastrointestinal: No nausea, No vomiting, No diarrhea, No constipation, No heartburn, No abdominal pain._ Musculoskeletal: No back pain, No neck pain, No joint pain, No muscle pain, No decreased range ofmotion, No trauma._ Skin: No rash, No pruritus, No breakdown._ Neurologic:No abnormal balance, No numbness, No tingling, No headache._ Physical Exam Vitals & Measurements T:36.3C RR:16 SpO2:99% HT:162.5cm WT:60.5kg WT:60.500kg(Dosing) BMI:22.91 PHQ2 Data(Data Documented on:02/18/2024 10:19) Emotional health assessment NEGATIVE General: _Alert and oriented, No acute distress HEENT: _ Normocephalic, TM clear, Nl gross hearing, moist oral mucosa _ Neck: supple, no lymphadenopathy Cardiovascular: _Normal rate, Regular rhythm, No murmur, No gallop. Normal peripheral perfusion Respiratory: _Lungs are clear to auscultation, Respirations are non-labored, Breath sounds are equal Musculoskeletal: _Normal range of motion,normal strength. Neurologic:Normal sensory, Normal motor function, CN II-XII grossly intact. Integumentary: _Warm, Dry, Teague. Psych: Mood-affect congruence. Reports no SI/HI. Speech is of normal pace and content Assessment/Plan Acute cough Acute, goal resolution, likely viral, continue current management. Wheezing Acute, goal resolution, likely related to above, albuterol inhaler if needed. CXR if occurs again. Reassuring pulm exam today. RTC if persistent/worsening and or needing to use inhaler several times for re-eval Time: 22mins 5- pre-visit chart review 12- visit, inclusive of history, exam, and discussion of assessment/plan 5- post-visit documentation/orders/coordination of care Problem List/Past Medical History Ongoing Anxiety Arthritis BCC (basal cell carcinoma of skin) Breast cancer Dysplasia of tongue Frequent PVCs Hypertension Hypertension [...] ascorbic acid(Vitamin C), 1 tab, PO, Daily benzonatate(Tessalon 200 mg oral capsule), 200 mg= 1 cap, PO, tid biotin(biotin 5 mg oral capsule), 5 mg= 1 cap, PO, Daily calcium and vitamin D combination(Calcium 600+D), 1 tab, PO, Daily docusate(Colace), 100 mg, PO, bid esomeprazole(esomeprazole 40 mg oral delayed release capsule), 40 mg= 1 cap, PO, Daily, 1 refills hydroCHLOROthiazide(hydroCHLOROthiazide 12.5 mg oral capsule), 1 cap, PO, Daily lisinopril(lisinopril 40 mg oral tablet), 40 mg= 1 tab, PO, Daily, 2 refills LORazepam(LORazepam 0.5 mg oral tablet), 0.5 mg= 1 tab, PO, qhs, PRN, 2 refills polyethylene glycol 3350(MiraLax oral powder for reconstitution), 17 g, PO triamcinolone - AMB Provider Charge(Kenalog 40mg/mL - 10 mL vial - PROVIDER injection), 40 mg= 1 mL, intra-articular, ONCE Allergies traMADol (Mild)Lightheaded Adhesive bandageRash amLODIPineTinnitus bacitracinerythema bacitracin/neomycin/polymyxin B topicalerythema codeineConfusion, Nausea Social History Smoking Status Never smoked cigarettes Tobacco Use:Former smoker Type:Cigarettes - Comments: Quit 35 years ago Family History Brain tumor..: Brother. Breast cancer: Maternal Aunt. Heart attack: Father. Heart disease: MGM. High blood pressure: Mother. Stroke: MGF and PGF. Health Status Family Member(s) Immunizations Vaccine Date Status influenza virus vaccine, inactivated 07/04/2023 Recorded SARS-CoV-2 (COVID-19) mRNA-vacc - [id number] 07/04/2023 Recorded RSV Vaccine Unspecified 06/13/2023 Recorded [...] 07/07/2020 Recorded Comments : [facility] 20-21 zoster vaccine, inactivated 06/24/2020 Recorded Comments : 2021-05-12: Historical information-source unspecified zoster vaccine, inactivated 04/12/2020 Recorded Comments : 2021-05-12: Historical information-source unspecified pneumococcal 13-valent vaccine 12/30/2015 Given influenza virus vaccine, inactivated 07/14/2014 Recorded Comments : [09/02/2014] Got at [facility] tetanus/diphtheria/pertuss, acel (Tdap) 03/22/2014 Given pneumococcal 23-valent vaccine 12/08/2007 Recorded Recommendations Health Maintenance Pending(in the next year) OverDue Medicare Annual Wellness Visit due07/26/17nd every 1year Lipid Screening due06/18/21and every 1826day Due Adult COVID-19 Vaccination due02/18/24Unknown Frequency Adult Social Determinants of Health Screening due02/18/24Unknown Frequency Due In Future Adult Influenza Vaccine not due until03/29/24and every 1year Satisfied(in the past 1 year) Satisfied Adult Influenza Vaccine on07/04/23.Satisfied by SHI Pierre Angela Body Mass Index on02/18/24.Satisfied by ELLA Miramontes Lori Electronic Signature on File Electronically Reviewed/Signed by: VIVEK Alegria Author Signature Dt/Tm:02/18/2024 10:43 AM Department of Family Medicine [facility] Patient Care team information Care Team Personnel Name: Daksha Martin Kayla Position: Pharmacist Member Role: Pharmacy - Lifetime Name: MD Harsh, Kushal Singh Position: Physician Member Role: Primary Care Provider Address: Address: [address] [place] [id number] [place] Care Team Related Persons Name: TL MONCADA Address: home [address] [place] [address] HILLARYSARA GALLEGOS [phone]"
--- OUTSIDE RECORDS SUMMARY | 2024-06-01 12:38 | External Medical Summary | Continuity of Care Document ---
Author Name Unknown Organization [facility] [address] [facility] Address [address] [place] [id number] Care Team Providers Care Gambling Box Person Name Role Phone Kushal House Primary Care Physician [phone] [id number] Date(s): 01/06/24 - 01/06/24 [facility] [address], [address] [place] [address] [phone] Encounter Diagnosis Mitral valve prolapse(Discharge Diagnosis) - 01/06/24 Inappropriate sinus tachycardia(Discharge Diagnosis) - 01/06/24 HTN (hypertension)(Discharge Diagnosis) - 01/06/24 Discharge Disposition: Home or Self Care Attending Physician: VIVEK Lux Sarah A Allergies, Adverse Reactions, Alerts Substance Reaction Severity Status codeine Confusion Nausea Active bacitracin erythema Active bacitracin/neomycin/polymyxin B topical erythema Active Neosporin area gets red. Active Adhesive bandage Rash Active traMADol Lightheaded Mild Active amLODIPine Tinnitus Active Assessment and Plan Extracted from: Title:Cardiology Office Visit Note Author:VIVEK Olvera rd, Sarah A Date:01/06/24 Impression: 1. Mild sinus tachycardia 2. PVCs 3. History of breast cancer treated with Herceptin 4. Holter monitor with heart rate ranging 74-132, few PVCs and PACs 5. HTN 6. Mitral valve prolapse Ms. Kruger is doing well. Her blood pressure is little elevated today but this does not appear to be her trend. Her BMP was stableon her November lab work. Her lipids were excellent. Her heart rateremainsmildly elevated. With her history ofmitral valveprolapse and PVCs,she should have a repeatechocardiogramin 2 years which would be 3 from prior. Her previousechocardiogramhas been stable since 2012. She would prefer to schedule her echo in 2026 and return on an as needed basis which is reasonable. Immunizations Given and Recorded Vaccine Date Status Refusal Reason influenza virus vaccine, inactivated 07/04/23 Dionisio rded influenza virus vaccine, inactivated 07/10/22 Dionisio rded influenza virus vaccine, inactivated 1 07/07/20 Re corded influenza virus vaccine, inactivated 2 07/14/14 Re corded SARS-CoV-2 (COVID-19) mRNA-vacc - [id number] 07/04/23 Recorded RSV Vaccine Unspecified 06/13/23 Recorded [...] pneumococcal 13-valent vaccine 12/30/15 Given 1Result Comment: [facility]- Fluzone - 2Result Comment: [09/02/2014] Got at [facility] 3Result Comment: 2022-12-04: Historical information-source unspecified 4Result Comment: 2022-12-04: Historical information-source unspecified 5Result Comment: 2021-05-12: Historical information-source unspecified 6Result Comment: 2021-05-12: Historical information-source unspecified 7Result Comment: Yolanda Zuluaga MA 8Result Comment: 2021-05-12: Historical information-source unspecified 9Result Comment: 2021-05-12: Historical information-source unspecified Medications acyclovir 400 mg oral tablet Start: 03/13/21 10:25:00 EDT, 1 tab, PO, once or twice a year PRN Start Date: 03/13/21 Status: Ordered Arimidex 1 mg oral tablet Start: 04/04/16 12:50:00, 1 tab, PO, Daily Start Date: 04/04/16 Status: Ordered biotin 5 mg oral capsule Start: 12/06/14 16:42:00, 1 cap, PO, Daily Start Date: 12/06/14 Status: Ordered Calcium 600+D Start: 03/25/13 13:57:00, 1 tab, PO, Daily Start Date: 03/25/13 Status: Ordered Colace Start: 03/13/21 10:24:00 EDT, 100 mg =, PO, bid, prn Start Date: 03/13/21 Status: Ordered esomeprazole 40 mg oral delayed release capsule Start: 12/09/23 13:29:00 EDT, 1 cap, PO, Daily, Disp# 30 cap, Refills: 1, Pharmacy: [id number] Start Date: 12/09/23 Stop Date: 02/07/24 Status: Ordered Fosamax 70 mg oral tablet Start: 03/13/21 10:25:00 EDT, 1 tab, PO, q7days Start Date: 03/13/21 Status: Ordered hydroCHLOROthiazide 12.5 mg oral capsule Start: 12/06/23 11:27:00 EST, 1 cap, PO, Daily, Disp# 90 cap, Refills: 0, Pharmacy: [id number] Start Date: 12/06/23 Status: Ordered lisinopril 40 mg oral tablet Start: 12/06/23 11:27:00 EST, 1 tab, PO, Daily, Disp# 90 tab, Refills: 2, 90 day supply requested, Pharmacy: [id number] Start Date: 12/06/23 Status: Ordered LORazepam 0.5 mg oral tablet Start: 12/06/23 11:30:00 EST, 1 tab, PO, qhs, Disp# 90 tab, Refills: 2, PRN: as needed for anxiety,Pharmacy: [id number] Start Date: 12/06/23 Stop Date: 09/01/24 Status: Ordered MiraLax oral powder for reconstitution Start: 12/18/16 14:28:00 EDT, 17 g =, PO, every fourth day Start Date: 12/18/16 Status: Ordered Tylenol Extra Strength 500 mg oral tablet Start: 06/17/20 10:22:00 EDT, 2 tab, PO, q8h, Alternate every 4 hours with Ibuprofen, PRN: as needed for fever Start Date: 06/17/20 Status: Ordered Vitamin C Start: 05/24/20 8:07:00 EDT, 1 tab, PO, Daily Start Date: 05/24/20 Status: Ordered Mental Status 01/06/24 Barriers to Learning one year None evide nt Mandatory Health Literacy Documentation Yes Health Literacy Communication Barriers N ever Primary Language Haitian Problem List Condition Confirmation Course Effective Dates [...] Effective Dates Health Status Clinical Service Informant Mitral valve prolapse Discharge Diagnosis 01/06/24 Non-Specified HTN (hypertension) Discharge Diagnosis 01/06/24 Non-Specified Inappropriate sinus tachycardia Discharge Diagnosis 01/06/24 Non-Specified Procedures Procedure Date Related Diagnosis Body [...] ed Dilation and curettage 1999 Co mpleted [place] tooth 1999 Completed lump of the right [...] to oldest [Reference Range]: 1 Patient Weight 61.9 kg (01/06/24 9:53 AM) Temperature [36.5-37.9 DegC] 36.3 DegC *LOW* (01/06/24 9:53 AM) Heart Rate 90 bpm (01/06/24 9:53 AM) Respiratory Rate 20 br/min (01/06/24 9:53 AM) Blood Pressure 142/74mmHg (01/06/24 9:53 AM) Cuff Pulse Pressure 68 mmHg (01/06/24 9:53 AM) BP Location # 1 Right Arm, Manual (01/06/24 9:53 AM) Social History Social History Type Response Tobacco Former smoker, Cigar ettes 1 Smoking Status Never smoked cigaret jose Sex Female 1Quit 35 years ago Cardiology Outpatient Note * VIVEK Lux Sarah A: PERFORM, MODIFY Event Display: Cardiology Outpt Note Authored Date: [id number] Primary Care Provider MD Harsh, Kushal Singh Chief Complaint Routine follow-up History of Present Illness Ms. Kruger presents for follow up of inappropriate sinus tachycardia, htn and mitral valve prolapse. She is feeling well overall.She denied having any dizziness or falls, no palpitations. No chest pain or shortness of breath. Review of Systems All other systems reviewed and negative except as discussed in the HPI Physical Exam Vitals & Measurements T:36.3C HR:90(Monitored) RR:20 BP:142/74 SpO2:97% WT:61.9kg WT:61.900kg(Dosing) Physical Examination General: Alert and oriented, No acute distress. Neck: No jugular venous distention. Respiratory: Lungs are clear to auscultation, Respirations are non-labored. Cardiovascular: Normal rate, Regular rhythm, No murmur, No edema. Integumentary: Warm, Dry, [place] Neurologic: Alert, Oriented. Cognition and Speech: Speech clear and coherent. Psychiatric: Cooperative, Appropriate mood & affect. Assessment/Plan Impression: 1. Mild sinus tachycardia 2. PVCs 3. History of breast cancer treated with Herceptin 4. Holter monitor with heart rate ranging 74-132, few PVCs and PACs 5. HTN 6. Mitral valve prolapse Ms. Kruger is doing well. Her blood pressure is little elevated today but this does not appear to be her trend. Her BMP wasstableon her November lab work. Her lipids were excellent. Her heart rateremainsmildly elevated. With her history ofmitral valveprolapse and PVCs,she should have a repeatechocardiogramin2 years which would be 3 from prior. Her previousechocardiogramhas been stable since 2012. She would prefer to schedule her echo in 2025 and return on an as needed basis which is reasonable. Problem List/Past Medical History Ongoing Anxiety Arthritis BCC (basal cell carcinoma of skin) Breast cancer Dysplasia of tongue Frequent PVCs Hypertension Hypertension Internal hemorrhoid Lumbago with sciatica Multinodular goiter Osteoarthritis of left hip Renal cyst Sciatic pain Scoliosis SI joint arthritis Strain of right trapezius muscle Weight monitoring Historical Actinic Keratosis Acute anxiety Benign hypertension Eustachian [...] intra-articular, ONCE Allergies traMADol (Mild)Lightheaded Adhesive bandageRash Neosporinarea gets red. amLODIPineTinnitus bacitracinerythema bacitracin/neomycin/polymyxin B topicalerythema codeineConfusion, Nausea Social History Smoking Status Never smoked cigarettes Tobacco Use:Former smoker Type:Cigarettes - Comments: Quit 35 years ago Family History Brain tumor..: Brother. Breast cancer: Maternal Aunt. Heart attack: Father. Heart disease: MGM. High blood pressure: Mother. Stroke: MGF and PGF. Health Status Family Member(s) Electronic Signature on File CC: Kushal House MD [address] [address] Electronically Reviewed/Signed by: VIVEK Dolan Author Signature Dt/Tm:01/06/2024 01:18 PM [facility] Tr[facility] SAG Patient Care team information Care Team Personnel Name: Daksha Martin Kayla Position: Pharmacist Member Role: Pharmacy - Lifetime Name: MD Harsh, Kushal Singh Position: Physician Member Role: Primary Care Provider Address: Address: [address] [place] [id number] Care Team Related Persons Name: TL KRUGER Address: home [address] [place], [place] [address] [phone]"
--- OUTSIDE RECORDS SUMMARY | 2024-06-01 12:38 | External Medical Summary | Continuity of Care Document ---
Author Name Unknown Organization [address] Address [address] [place] [id number] Care Team Providers Care Forester Aide Name Role Phone Kushal House Primary Care Physician [phone] [id number] Date[facility]s): 12/06/23 - 12/06/[address] [place] [id number] [facility], [address] [place] [address] [phone] Encounter Diagnosis Body mass index [BMI] 23.0-23.9, adult(Discharge Diagnosis) - 12/06/23 Hypertension(Discharge Diagnosis) - 12/06/23 Anxiety(Discharge Diagnosis) - 12/06/23 Breast cancer(Discharge Diagnosis) - 12/06/23 GERD (gastroesophageal reflux disease)(Discharge Diagnosis) - 12/06/23 Discharge Disposition: Home or Self Care Attending Physician: MD House Ravishankar E Referring Physician: MD House Ravishankar E Allergies, Adverse Reactions, Alerts Substance Reaction Severity Status codeine Confusion Nausea Active bacitracin erythema Active traMADol Lightheaded Mild Active bacitracin/neomycin/polymyxin B topical erythema Active Neosporin area gets red. Active Adhesive bandage Rash Active amLODIPine Tinnitus Active Assessment and Plan Extracted from: Title:Office Visit Note Author:MD House Ravishan kar E Date:12/06/23 1.Hypertension - Well controlled on current regimen - Continue as prescribed - BMP to surveil, getting labs at [facility] for a study so will have those sent to us 2.Anxiety - Continue current regimen - CSA up todate, aware of risks/benefits 3.Breast cancer - In remission on anastrazole 4.GERD (gastroesophageal reflux disease) - Add omeprazole 20mg x 2-4 weeks, then prn famotidine thereafter - Dietary counseling provided f/u PRN or q 6months. Time: 30mins 5- pre-visit chart review 20- visit, inclusive of history, exam, and discussion of assessment/plan 5- post-visit documentation/orders/coordination of care Immunizations Given and Recorded Vaccine Date Status Refusal Reason influenza virus vaccine, inactivated 07/04/23 Dionisio rded influenza virus vaccine, inactivated 07/10/22 Dionisio rded influenza virus vaccine, inactivated 1 07/07/20 Re corded influenza virus vaccine, inactivated 2 07/14/14 Re corded SARS-CoV-2 (COVID-19) mRNA-vacc - [id number] 07/04/23 Recorded RSV Vaccine Unspecified 06/13/23 Recorded [...] pneumococcal 13-valent vaccine 12/30/15 Given 1Result Comment: [facility]- Fluzone - 2Result Comment: [09/02/2014] Got at [facility] 3Result Comment: 2022-12-04: Historical information-source [...] bid, prn Start Date: 03/13/21 Status: Ordered Fosamax 70 mg oral tablet Start: 03/13/21 10:25:00 EDT, 1 tab, PO, q7days Start Date: 03/13/21 Status: Ordered hydroCHLOROthiazide 12.5 mg oral capsule Start: 12/06/23 11:27:00 EST, 1 cap, PO, Daily, Disp# 90 cap, Refills: 0, Pharmacy: [id number] Start Date: 12/06/23 Status: Ordered lisinopril 40 mg oral tablet Start: 12/06/23 11:27:00 EST, 1 tab, PO, Daily, Disp# 90 tab, Refills: 2, 90 day supply requested, Pharmacy: [id number] Start Date: 12/06/23 Status: Ordered LORazepam 0.5 mg oral tablet Start: 12/06/23 11:30:00 EST, 1 tab, PO, qhs, Disp# 90 tab, Refills: 2, PRN: as needed for anxiety,Pharmacy: [id number] Start Date: 12/06/23 Stop [...] PO, Daily Start Date: 05/24/20 Status: Ordered Problem List Condition Confirmation Course Effective Dates [...] Clinical Service Informant Body mass index [BMI] 23.0-23.9, adult Discharge Diagnosis 12/06/23 Non-Specified Anxiety Discharge Diagnosis 12/06/23 Breast cancer Discharge Diagnosis 12/06/23 GERD (gastroesophageal reflux disease) Discharge Diagnosis 12/06/23 Hypertension Discharge Diagnosis 12/06/23 Procedures Procedure Date Related Diagnosis Body Site [...] ed Dilation and curettage 1999 Co mpleted [place] tooth 1999 Completed lump of the right [...] recent to oldest [Reference Range]: 1 Height 160.5 cm (12/06/23 11:01 AM) Patient Weight 61 kg (12/06/23 11: AM) Body Mass Index 23.68 kg/m2 (12/06/23 11: AM) Temperature [36.5-37.9 DegC] 36.1 DegC *LOW* (12/06/23 11: AM) Heart Rate 104 bpm (12/06/23 11:01 AM) Respiratory Rate 16 br/min (12/06/23 11:01 AM) Blood Pressure 116/64mmHg (12/06/23 11:01 AM) Social History Social History Type Response Tobacco Former smoker, Cigar ettes 1 Smoking Status Never smoked cigaret jose Sex Female 1Quit 35 years ago FCM Outpt Note * MD Harsh, Kushal Singh: PERFORM Event Display: FCM Outpt Note Authored Date: Chief Complaint med check- med refill History of Present Illness Aliya is a 78yoF here today for medication check-in for refills. SHe has hypertension well controlled on current regimen of HCTZ/lisinopril and doing well without side effects. She also has chronic anxiety using prn lorazepam started by prior PCP and well tolerated for years. Not interested in changing as this regimen is working for her. CSA up to date. PDMP reviewed. Breast CA remains in remission on anastrazole. Had some worsening reflux and has been using OTC acid semiconductor lab technician and wonders about using a PPI or just work on diet. Review of Systems 07/13pt ROS reviewed/negative except as noted in HPI. Physical Exam Vitals & Measurements T:36.1C HR:104(Monitored) RR:16 BP:116/64 SpO2:98% HT:160.5cm WT:61kg WT:61.000kg(Dosing) BMI:23.68 GENERAL APPEARANCE: The patient is alert, oriented and in no acute distress. VITALS: As above. HEENT: Head is normocephalic/atraumatic. CARDIOVASCULAR: +2 radial pulses. LUNGS: Respirations even and unlabored. EXTREMITIES: No cyanosis, clubbing or edema. NEUROLOGICAL: Grossly non-focal exam. SKIN: Warm and dry without any rash. Assessment/Plan 1.Hypertension - Well controlled on current regimen - Continue as prescribed - BMP to surveil, getting labs at [facility] for a study so will have those sent to us 2.Anxiety - Continue current regimen - CSA up todate, aware of risks/benefits 3.Breast cancer - In remission on anastrazole 4.GERD (gastroesophageal reflux disease) - Add omeprazole 20mg x 2-4 weeks, then prn famotidine thereafter - Dietary counseling provided f/u PRN or q 6months. Time: 30mins 5- pre-visit chart review 20- visit, inclusive of history, exam, and discussion [...] PO, Daily docusate(Colace), 100 mg, PO, bid hydroCHLOROthiazide(hydroCHLOROthiazide 12.5 mg oral capsule), 1 cap, [...] inactivated 07/04/2023 Recorded SARS-CoV-2 (COVID-19) mRNA-vacc - [id number] 07/04/2023 Recorded RSV Vaccine Unspecified 06/13/2023 Recorded [...] virus vaccine, inactivated 07/07/2020 Recorded Comments : [facility]- Fluzone HD 20-21 zoster vaccine, inactivated 06/24/2020 Recorded Comments : 2021-05-12: Historical information-source unspecified zoster vaccine, inactivated 04/12/2020 Recorded Comments : 2021-05-12: Historical information-source unspecified pneumococcal 13-valent vaccine 12/30/2015 Given influenza virus vaccine, inactivated 07/14/2014 Recorded Comments : [09/02/2014] Got at [facility] tetanus/diphtheria/pertuss, acel (Tdap) 03/22/2014 Given pneumococcal 23-valent vaccine 12/08/2007 Recorded Recommendations Health Maintenance Pending(in the next year) OverDue Medicare Annual Wellness Visit due07/26/17nd every 1year Lipid Screening due06/18/21and every 1826day Due Adult COVID-19 Vaccination due12/06/23Unknown Frequency Adult Social Determinants of Health Screening due12/06/23Unknown Frequency Due In Future Adult Influenza Vaccine not due until03/29/24and every 1year Satisfied(in the past 1 year) Satisfied Adult Influenza Vaccine on07/04/23.Satisfied by [facility] Angela Body Mass Index on12/06/23.Satisfied by [facility] Angela Electronic Signature on File Electronically Reviewed/Signed by: Kushal House MD Author Signature Dt/Tm:12/06/2023 11:41 AM Department of Family Medicine [facility] Patient Care team information Care Team Personnel Name: Daksha Martin Kayla Position: Pharmacist Member Role: Pharmacy - Lifetime Name: MD House Ravishankar E Position: Physician Member Role: Primary Care Provider Address: Address: [address] [place] [address] Care Team Related Persons Name: TL MONCADA Address: home [address] [place] [phone]"
--- OUTSIDE RECORDS SUMMARY | 2024-06-01 12:38 | External Medical Summary | Continuity of Care Document ---
Author Name Unknown Organization [facility] [address] [place] [address] [place] [phone] Care Team Providers Care Barrel Endshaker Adjuster Name Role Phone Lorne Housearygeoff Singh Primary Care Physician [phone] Encounter [facility] [id number] Date(s): 02/17/24 - 02/17/[address] [facility] [address] [facility], [address] [place] [id number] [phone] Encounter Diagnosis Body mass index [BMI] 23.0-23.9, adult(Discharge Diagnosis) - 02/17/24 Cough(Discharge Diagnosis) - 02/17/24 Fatigue(Discharge Diagnosis) - 02/17/24 Decreased appetite(Discharge Diagnosis) - 02/17/24 Discharge Disposition: Home or Self Care Attending Physician: DO Lee Mehwish Referring Physician: DO Lee Mehwish Allergies, Adverse Reactions, Alerts Substance Criticality Severity Reaction Reaction Severity Status codeine Confusion Nausea Active bacitracin erythema Active traMADol Unable to assess criticality Mild Lightheaded Active bacitracin/neomycin/ polymyxin B topical erythema Active Adhesive bandage Rash Act latonya amLODIPine Tinnitus Active Assessment and Plan Extracted from: Title:Office Visit Note Author:DO Lee Me hwish Date:02/17/24 1.Cough 2.Fatigue 3.Decreased appetite Suspect possible viral illness causing her cough.Giventhe irregular nature of hercardiac auscultation examan EKG was obtained which demonstratessinus tachycardia with frequent PVCs which she has a known history of.At this time recommend continued symptomatic carewith Robitussin and Coricidin. I discussedstarting Tesnguyen Camachoestdivine see if this can furtherhelp with hercough. Recommendhoneyeither alone or withwarm tea. Advised to follow-up if her symptoms persist or do notimprove. Consider chest x-ray if persistent symptoms. Time: 39_mins 6_ - pre-visit chart review 25_ - visit, inclusive of history, exam, and discussion of assessment/plan 8 - post-visit documentation/orders/coordination of care Immunizations Given and Recorded Vaccine Date Status Refusal Reason influenza virus vaccine, inactivated 07/04/23 Dionisio rded influenza virus vaccine, inactivated 07/10/22 Dionisio rded influenza virus vaccine, inactivated 1 07/07/20 Re corded influenza virus vaccine, inactivated 2 07/14/14 Re corded SARS-CoV-2 (COVID-19) mRNA-vacc - [id number] 07/04/23 Recorded RSV Vaccine Unspecified 06/13/23 Recorded [...] pneumococcal 13-valent vaccine 12/30/15 Given 1Result Comment: [facility] - 2Result Comment: [09/02/2014] Got at [facility] 3Result Comment: 2022-12-04: Historical [...] each, PRN: as needed for wheezing, Pharmacy: [id number] Start Date: 02/18/24 Status: [...] Daily, Disp# 30 cap, Refills: 1, Pharmacy: [id number] Start Date: 12/09/23 Stop Date: 02/07/24 Status: Ordered Fosamax 70 mg oral tablet Start: 03/13/21 10:25:00 AM EDT, 1 tab, PO, q7days Start Date: 03/13/21 Status: Ordered hydroCHLOROthiazide 12.5 mg oral capsule Start: 12/06/23 11:27:00 AM EST, 1 cap, PO, Daily, Disp# 90 cap, Refills: 0, Pharmacy: [id number] Start Date: 12/06/23 Status: Ordered lisinopril 40 mg oral tablet Start: 12/06/23 11:27:00 AM EST, 1 tab, PO, Daily, Disp# 90 tab, Refills: 2, 90 day supply requested,Pharmacy: [facility] Start Date: 12/06/23 Status: Ordered LORazepam 0.5 mg oral tablet Start: 12/06/23 11:30:00 AM EST, 1 tab, PO, qhs, Disp# 90 tab, Refills: 2, PRN: as needed for anxiety, Pharmacy: [id number] Start Date: 12/06/23 Stop Date: 09/01/24 Status: Ordered MiraLax oral powder for reconstitution Start: 12/18/16 2:28:00 PM EDT, 17 g =, PO, every fourth day Start Date: 12/18/16 Status: Ordered Tessalon 200 mg oral capsule Start: 02/17/24 9:34:00 AM EDT, 1 cap, PO, tid, Disp# 42 cap, Refills: 0, Pharmacy: [id number] Start Date: 02/17/24 Stop Date: 03/02/24 Status: Ordered Tylenol Extra Strength 500 mg oral tablet Start: 06/17/20 10:22:00 AM EDT, 2 tab, PO, q8h, Alternate every 4 hours with Ibuprofen, PRN: as needed for fever Start Date: 06/17/20 Status: Ordered Vitamin C Start: 05/24/20 8:07:00 AM EDT, 1 tab, PO, Daily Start Date: 05/24/20 Status: Ordered Mental Status 02/17/24 Barriers to Learning one year None evide nt Mandatory Health Literacy Documentation Yes Health Literacy Communication Barriers N ever Primary Language Rwandan Problem List Condition Confirmation Course Effective Dates [...] Dates Health Status Cl inical Service Informant Body mass index [BMI] 23.0-23.9, adult Discharge Diagnosis 02/17/24 Non-Specified Decreased appetite Discharge Diagnosis 02/17/24 Non-Specified Cough Discharge Diagnosis 02/17/24 Non-Specified Fatigue Discharge Diagnosis 02/17/24 Non-Specified Procedures Procedure Date Related Diagnosis Body [...] ed Dilation and curettage 1999 Co mpleted [place] tooth 1999 Completed lump of the right [...] oldest [Reference Range]: 1 Height 162.5 cm (02/17/24 8:44 AM) Patient Weight 61.4 kg (02/17/24 8:44 AM) Body Mass Index 23.25 kg/m2 (02/17/24 8:44 AM) Temperature [36.5-37.9 DegC] 36.0 DegC *LOW* (02/17/24 8:44 AM) Heart Rate 92 bpm (02/17/24 8:44 AM) Blood Pressure 130/80mmHg (02/17/24 8:44 AM) Cuff Pulse Pressure 50 mmHg (02/17/24 8:44 AM) Social History Social History Type Response Tobacco Former smoker, Cigar ettes 1 Smoking Status Never smoked cigaret jose Sex Female 1Quit 35 years ago Cardiology * Contributor_system, MUSE01: VERIFY, PERFORM Event Display: EKG Authored Date: Please click on link to see image. FCM Outpt Note * DO Lee Mehwish: PERFORM Event Display: FCM Outpt Note Authored Date: [id number] Chief Complaint Started Saturday. Coughing to the point of vomiting. Yellowish-white phlegm. Saturday Covid (-). Temp highes 99.6. Has been taking clorecidin and robitussin. History of Present Illness Aliya is an 78yo female for evaluation of cough. Cough since Saturday afternoon. Waking up 3-4 times last night. Hasn't really coughed much at all since the AM.She notes that she typically does not cough for a long period of time but does get into coughing fits. She notes decreased appetite, not eating as much butdrinking more fluids and havingsoup and broths. She has been using Coricidin as well as Robitussinfor symptom relief.No fever, highest temperature 99.6 F. She has a history of pneumonia and bronchitis once previously. No history of asthma. She is a former smoker. She denies any known sick contacts. Denies anychest pain, lightheadedness. Does not have significanthistory of allergies. She did take a COVID19 test at home which was negative. Physical Exam Vitals & Measurements T:36.0C HR:92(Monitored) BP:130/80 SpO2:98% HT:162.5cm WT:61.4kg WT:61.400kg(Dosing) BMI:23.25 PHQ2 Data(Data Documented on:02/17/2024 08:42) Emotional health assessment NEGATIVE GENERAL APPEARANCE: The patient is alert, oriented and in no acute distress. VITALS: As above. HEENT: Head is normocephalic/atraumatic. TMs clear bilaterally-bilateral hearing aids. Oropharynxwith no tonsillar swelling or exudates, no post nasal drip visualized. Nasal turbinates wnl_. No facial tenderness over sinuses. NECK: Supple without lymphadenopathy. Thyroid wnl. CARDIOVASCULAR: Tachycardic,irregular on auscultation LUNGS: Clear to auscultation bilaterally. No wheezes/rales/rhonchi. EXTREMITIES: No cyanosis, clubbing or edema NEUROLOGICAL: Grossly non-focal exam. SKIN: Warm and dry without any rash. Diagnostic Results EKG demonstratessinus tachycardia withfrequent PVCs Assessment/Plan 1.Cough 2.Fatigue 3.Decreased appetite Suspect possible viral illness causing her cough.Giventhe irregular nature of hercardiac auscultation examan EKG was obtained which demonstratessinus tachycardia with frequent PVCs which she has a known history of.At this time recommend continued symptomatic carewith Robitussin and Coricidin. I discussedstarting Carlos Allred see if this can furtherhelp with hercough. Recommendhoneyeither alone or withwarm tea. Advised to follow-up if her symptoms persist or do notimprove. Consider chest x-ray if persistent symptoms. Time: 39_mins 6_ - pre-visit chart review 25_ - visit, inclusive of history, exam, and discussion of assessment/plan 8 - post-visit documentation/orders/coordination of care Problem List/Past [...] inactivated 07/04/2023 Recorded SARS-CoV-2 (COVID-19) mRNA-vacc - [id number] 07/04/2023 Recorded RSV Vaccine Unspecified 06/13/2023 Recorded [...] virus vaccine, inactivated 07/07/2020 Recorded Comments : [facility] 20-21 zoster vaccine, inactivated 06/24/2020 Recorded Comments : 2021-05-12: Historical information-source unspecified zoster vaccine, inactivated 04/12/2020 Recorded Comments : 2021-05-12: Historical information-source unspecified pneumococcal 13-valent vaccine 12/30/2015 Given influenza virus vaccine, inactivated 07/14/2014 Recorded Comments : [09/02/2014] Got at [facility] tetanus/diphtheria/pertuss, acel (Tdap) 03/22/2014 Given pneumococcal 23-valent vaccine 12/08/2007 Recorded Recommendations Health Maintenance Pending(in the next year) OverDue Medicare Annual Wellness Visit due07/26/17nd every 1year Lipid Screening due06/18/21and every 1825day Due Adult COVID-19 Vaccination due02/17/24Unknown Frequency Adult Social Determinants of Health Screening due02/17/24Unknown Frequency Due In Future Adult Influenza Vaccine not due until03/29/24and every 1year Satisfied(in the past 1 year) Satisfied Adult Influenza Vaccine on07/04/23.Satisfied by SHI Pierre Angela Body Mass Index on02/17/24.Satisfied by SHI Mclain Angela Electronic Signature on File CC: Kushal House MD [address] [place] [id number] Electronically Reviewed/Signed by: Liane Lee DO Author Signature Dt/Tm:02/17/2024 10:37 AM Division of Sports Medicine MM Patient Care team information Care Team Personnel Name: Daksha Martin Kayla Position: Pharmacist Member Role: Pharmacy - Lifetime Name: MD House Ravishankar E Position: Physician Member Role: Primary Care Provider Address: Address: [address] [place] [address] [place] Care Team Related Persons Name: TL MONCADA Address: home [address] [place] [phone]"
--- OUTSIDE RECORDS SUMMARY | 2024-06-01 12:38 | External Medical Summary | Continuity of Care Document ---
Author Name Unknown Organization [facility] [address] [place] [address] [address] [place] [address] [place], [place] [id number] Care Team Providers Care Accounting System Expert Name Role Phone Kushal House Primary Care Physician [phone] Encounter [facility] [id number] Date(s): 01/27/24 - 01/27/[address] [facility] [address] [facility], [address] [place] [address] [phone] Encounter Diagnosis Internal hemorrhoid(Discharge Diagnosis) - 01/27/24 Discharge Disposition: Home or Self Care Attending Physician: MD House Ravishankar E Referring Physician: MD House Ravishankar E Allergies, Adverse Reactions, Alerts Substance Reaction Severity Status codeine Confusion Nausea Active bacitracin erythema Active traMADol Lightheaded Mild Active bacitracin/neomycin/polymyxin B topical erythema Active Neosporin area gets red. Active Adhesive bandage Rash Active amLODIPine Tinnitus Active Assessment and Plan Extracted from: Title:Office Visit Note Author:DO Best Eric Da te:01/27/24 1.Internal hemorrhoid - Referral forColorectal to have internal hemorrhoids rubber band ligation. - Will hold off on anusol at this time as symptoms have resolved at this time. - Continue with symptomatic care at this time. Immunizations Given and Recorded Vaccine Date Status Refusal Reason influenza virus vaccine, inactivated 07/04/23 Dionisio rded influenza virus vaccine, inactivated 07/10/22 Dionisio rded influenza virus vaccine, inactivated 1 07/07/20 Re corded influenza virus vaccine, inactivated 2 07/14/14 Re corded SARS-CoV-2 (COVID-19) mRNA-vacc - [id number] 07/04/23 Recorded RSV Vaccine Unspecified 06/13/23 Recorded measles/mumps/rubella virus vaccine 12/03/22 Recor ded tetanus/diphtheria/pertuss, acel (Tdap) 3 11/23/22 Recorded tetanus/diphtheria/pertuss, acel (Tdap) 03/22/14 G micheal SARS-CoV-2 mRNA-1273 (6y+ bivalent) 4 08/15/22 Rec orded SARS-CoV-2 (COVID-19) mRNA-1273 vaccine 04/30/21 R ecorded SARS-CoV-2 (COVID-19) mRNA-1273 vaccine 5 11/27/20 Recorded SARS-CoV-2 (COVID-19) mRNA-1273 vaccine 6 10/23/20 Recorded pneumococcal 23-valent vaccine 7 08/11/20 Given pneumococcal 23-valent vaccine 12/08/07 Recorded zoster vaccine, inactivated 8 06/24/20 Recorded zoster vaccine, inactivated 9 04/12/20 Recorded pneumococcal 13-valent vaccine 12/30/15 Given 1Result Comment: [facility] 2Result Comment: [09/02/2014] Got at [facility] 3Result Comment: 2022-12-04: Historical information-source [...] Daily, Disp# 30 cap, Refills: 1, Pharmacy: [id number] Start Date: 12/09/23 Stop Date: 02/07/24 Status: Ordered Fosamax 70 mg oral tablet Start: 03/13/21 10:25:00 EDT, 1 tab, PO, q7days Start Date: 03/13/21 Status: Ordered hydroCHLOROthiazide 12.5 mg oral capsule Start: 12/06/23 11:27:00 EST, 1 cap, PO, Daily, Disp# 90 cap, Refills: 0, Pharmacy: [id number] Start Date: 12/06/23 Status: Ordered lisinopril 40 mg oral tablet Start: 12/06/23 11:27:00 EST, 1 tab, PO, Daily, Disp# 90 tab, Refills: 2, 90 day supply requested, Pharmacy: [facility] Start Date: 12/06/23 Status: Ordered LORazepam 0.5 mg oral tablet Start: 12/06/23 11:30:00 EST, 1 tab, PO, qhs, Disp# 90 tab, Refills: 2, PRN: as needed for anxiety,Pharmacy: [id number] Start Date: 12/06/23 [...] Start Date: 05/24/20 Status: Ordered Mental Status 01/27/24 Barriers to Learning one year None evide nt Mandatory Health Literacy Documentation Yes Health Literacy Communication Barriers N ever Primary Language Portuguese Problem List Condition Confirmation Course Effective Dates [...] Effective Dates Health Status Clinical Service Informant Internal hemorrhoid Discharge Diagnosis 01/27/24 Procedures Procedure Date Related Diagnosis Body Site [...] ed Dilation and curettage 1999 Co mpleted [place] tooth 1999 Completed lump of the right [...] to oldest [Reference Range]: 1 Patient Weight 60.3 kg (01/27/24 1:29 PM) Temperature [36.5-37.9 DegC] 36.7 DegC (01/27/24 1:29 PM) Blood Pressure 122/72mmHg (01/27/24 1:29 PM) Cuff Pulse Pressure 50 mmHg (01/27/24 1:29 PM) Social History Social History Type Response Tobacco Former smoker, Cigar ettes 1 Smoking Status Never smoked cigaret jose Sex Female 1Quit 35 years ago FCM Outpt Note * MD Harsh, Kushal Singh: MODIFY MD Harsh, Kushal E: MODIFY Event Display: FCM Outpt Note Authored Date: Chief Complaint Pt here for hemorrhoid flare. Last was years ago. It is internal that bleeding has been stoppedand has shrunk. History of Present Illness Patient is a 78 y/o female who presents to the office for internal hemorrhoids. Internal hemorrhoids: -Have had them since chemo, been years since her last flare -This AM, bright red blood in the bowel and when wiping. -No pain, not constipated, soft BM. -No SOB, CP, or dizziness. Review of Systems Negative ROS besides what is stated in the HPI above. Physical Exam Vitals & Measurements T:36.7C BP:122/72 SpO2:97% WT:60.300kg(Dosing) WT:60.3kg PHQ2 Data(Data Documented on:01/27/2024 13:29) Emotional health assessment NEGATIVE General:Well-developed, well-nourished patient, in no acute distress, pleasant and normal affect, intact memory. Eyes:No scleral injection or discharge. ENT:Moist mucous membranes. Lungs:No increased work of breathing. Cardiac:Well perfused.No extremity edema. Neurologic:Grossly intact cranial nerves Assessment/Plan 1.Internal hemorrhoid - Referral forColorectal to have internal hemorrhoids rubber band ligation. - Will hold off on anusol at this time as symptoms have resolved at this time. - Continue with symptomatic care at this time. Attestation ATTENDING PHYSICIAN ATTESTATION: I saw the patient and confirmed reyes portions of the history and physical exam and agree with the resident impression and plan as above. Dr. Kushal House MD Problem List/Past Medical History Ongoing Anxiety Arthritis [...] inactivated 07/04/2023 Recorded SARS-CoV-2 (COVID-19) mRNA-vacc - [id number] 07/04/2023 Recorded RSV Vaccine Unspecified 06/13/2023 Recorded [...] 07/14/2014 Recorded Comments : [09/02/2014] Got at [facility] tetanus/diphtheria/pertuss, acel (Tdap) 03/22/2014 Given pneumococcal 23-valent vaccine 12/08/2007 Recorded Recommendations Health Maintenance Pending(in the next year) OverDue Medicare Annual Wellness Visit due07/26/17nd every 1year Lipid Screening due06/18/21and every 1826day Due Adult COVID-19 Vaccination due01/27/24Unknown Frequency Adult Social Determinants of Health Screening due01/27/24Unknown Frequency Due In Future Adult Influenza Vaccine not due until03/29/24and every 1year Satisfied(in the past 1 year) Satisfied Adult Influenza Vaccine on07/04/23.Satisfied by SHI Pierre Angela Body Mass Index on12/06/23.Satisfied by SHI Pierre Angela Electronic Signature on File Electronically Reviewed/Signed by: Vladimir Best DO Author Signature Dt/Tm:01/27/2024 02:03 PM Resident Department of Family Medicine Electronically Reviewed/Signed by: Kushal House MD Cosigner Signature Dt/Tm: 01/27/2024 02:04PM Department of Family Medicine EB Patient Care team information Care Team Personnel Name: Daksha Martin Kayla Position: Pharmacist Member Role: Pharmacy - Lifetime Name: MD House Ravishankar E Position: Physician Member Role: Primary Care Provider Address: Address: [address] [place] [id number] Care Team Related Persons Name: TL MONCADA Address: home [address] [place] [address] [facility] [place] [id number]"
[2024-06-01 13:33] LABS: Basophils # (auto) 0.05 K/uL (0.00-0.20); Basophils % (auto) 0.4 %; Eosinophils # (auto) 0.09 K/uL (0.00-0.50); Eosinophils % (auto) 0.7 %; Hematocrit (blood only) 37.3 % (37.0-47.0); Hemoglobin 12.9 g/dl (12.0-16.0); Immature Granulocytes # (auto) 0.05 K/uL (0.01-0.20); Immature Granulocytes % (auto) 0.4 %; Lymphocytes # (auto) 1.97 K/uL (1.20-3.40); Lymphocytes % (auto) 14.4 %; Mean Corpuscular Hemoglobin 27.4 pg (25.0-34.0); Mean Corpuscular Hgb Conc 34.6 g/dL (32.0-36.0); Mean Corpuscular Volume 79.2 fL (80.0-100.0); Mean Platelet Volume 10.6 fL (9.4-12.4); Monocytes # (auto) 0.77 K/uL (0.11-0.59); Monocytes % (auto) 5.6 %; Neutrophils # (auto) 10.71 K/uL (1.40-6.50); Neutrophils % (auto) 78.5 %; Platelet Count 281 K/uL (130-400); RDW Standard Deviation 37.3 fL (36.4-46.3); Red Blood Count 4.71 M/uL (4.20-5.40); White Blood Count 13.64 K/ul (4.8-10.8)
[2024-06-01 13:40] LABS: Albumin Globulin Ratio 1.7 (0.9-2); Albumin Level 4.7 gm/dl (3.4-5.0); BUN Creatinine Ratio 27.5 (10-20); Bilirubin,Total 0.5 mg/dl (0.2-1.0); Creatinine Clr Calc Pharmacy 48.4 ml/min; Est GFR (African American) 80.7 ml/min; Est GFR (Non-African American) 69.6 ml/min; Globulin 2.8 gm/dl (2.5-4.0); Potassium 3.9 mmol/L (3.5-5.1); Total Protein 7.5 gm/dl (6.0-8.3)
--- NOTE | 2024-06-01 13:46 | Emergency Department Note ---
Impression & Plan Exertional dyspnea, Bigeminy, D-dimer, elevated ED Provider Note NAME: DEEPTHI MONCADA AGE: 78 SEX: F : 1945 ARRIVES VIA: Ambulance INFORMANT: Patient ED PROVIDER(S): Chucky Apple DO CHIEF COMPLAINT: Shortness of breath HPI: Patient is an 78-year-old female with a past medical history of hypertension, pneumonia, constipation for shortness of breath. Shortness of breath started yesterday and has worsened today. She notes she can no longer go up the stairs as she is getting so short of breath. Denies any chest pain, belly pain, nausea, vomiting, or diarrhea. No cough or congestion. No other exacerbating or remitting factors. ADDITIONAL HISTORY OBTAINED: Per HPI Chronic Medical/Social Conditions Affecting Care: Per HPI PAST MEDICAL HISTORY:See Below PAST SURGICAL HISTORY:See Below FAMILY HISTORY:See Below SOCIAL HISTORY:See Below HOME MEDICATIONS:See Below ALLERGIES:See Below VITALS:See Below PHYSICAL EXAMINATION: GENERAL: Sitting up in bed, alert, well appearing, well nourished, no distress, non-toxic EYE EXAM: normal conjunctiva. PERRL and EOM's grossly intact. OROPHARYNX: no exudate, no erythema, lips, buccal mucosa, and tongue normal and mucous membranes are moist NECK: supple, no nuchal rigidity, no adenopathy, non-tender LUNGS: Clear to auscultation. Normal chest wall mechanics HEART: no murmurs, S1 normal and S2 normal ABDOMEN: abdomen soft, non-tender, normo-active bowel sounds, no masses, no rebound or guarding. BACK: Back is symmetrical on inspection and there is no deformity, no midline tenderness, no CVA tenderness. SKIN: no rashes and no bruising UPPER EXTREMITIES: upper extremities are grossly normal. LOWER EXTREMITIES: No pitting edema. Left calf is faintly larger than right which is old per patient due to surgery NEURO EXAM: Normal sensorium, cranial nerves II-XII grossly intact, normal speech, no gross weakness of arms, no gross weakness of legs. MEDICAL DECISION MAKING: Patient is an 78-year-old female who presents to the ER for shortness of breath which has been present for the past 2 days. IV was established with orders obtained. Labs show leukocytosis 13.6. No significant anemia. INR unremarkable. D-dimer was positive at 740. BMP with LFTs bilirubin and mag is unremarkable. TSH was unremarkable. Troponin was negative. Viral panel was negative. Patient was given IV fluids. Chest x-ray was unremarkable. CT angio chest was negative. EKG showed bigeminy. Patient was updated and discussed the case with the hospitalist for further evaluation management treatment. Consults/Care Managements Discussions: Per MDM Triage Nursing notes reviewed. Limited review of prior medical records performed Vital Signs: reviewed and remarkable for HTN and tachy Differential diagnosis: Differential diagnoses includes but is not limited to pneumonia, bronchitis, COPD/Asthma exacerbation, pneumothorax, pulmonary embolism, congestive heart failure, acute coronary syndrome ER treatment provided: See below Diagnostics interpreted by me include EKG and cardiac monitoring as listed below: -Cardiac Monitoring: An order was placed for continuous cardiac monitoring. The monitor shows a rate of 115 with sinus rhythm. -ECG: Sinus tachycardia rate of 116 Normal abscess Intermittent bigeminy QTc 467 -Laboratory studies:Interpreted by me as stated above in MDM and shown below. Imaging studies: Xrays: As interpreted by me: Portable AP upright 1 view of the chest shows no focal infiltrate CTs show: CT angio chest was negative Procedures:none Critical Care: None Past Med/Surg History Problem List (Updated 06/01/24 @ 18:09 by Chucky Apple DO) D-dimer, elevated (Acute) Bigeminy (Acute) Exertional dyspnea (Acute) Symptomatic premature ventricular contractions LAWSON (dyspnea on exertion) Lung cyst Chronic hypertension Multinodular goiter RLL pneumonia Microscopic hematuria Renal lesion Acid reflux Hypokalemia Pneumonia (Acute) Constipation Cavitary lesion of lung Trochanteric bursitis of left hip History of total left hip arthroplasty H/O total knee replacement Encounter for pre-operative examination Bilateral breast cancer (~04/2013) Breast cancer (Chronic ~04/2013) Malignant neoplasm of lower-outer quadrant of female breast (Acute 11/16/09) "Invasive ductal carcinoma left breast Status post lumpectomy and sentinel lymph node biopsy pathologic stage [id number] Estrogen receptor positive progesterone receptor positive HER-2/roxanne negative Status post completion of radiation therapy 03/10/2010 received 6120 cGy Treatment with tamoxifen " Sinus tachycardia (Chronic ~10/2013) Medical History Acid reflux Anxiety Constipation History of bilateral breast cancer History of breast cancer History of melanoma HTN (hypertension) Internal hemorrhoid Microscopic hematuria Osteoarthritis Renal lesion Scoliosis Surgical History H/O wisdom tooth extraction History of cataract surgery History of colonoscopy History of dilatation and curettage History of left breast biopsy History of lumpectomy of left breast History of lumpectomy of right breast History of melanoma excision History of removal of cyst History of right breast biopsy History of spinal fusion History of tonsillectomy and adenoidectomy History of tooth extraction History of tubal ligation Social History Smoking Status: Former smoker Tobacco Type: Cigarettes Cigarettes Per Day: QUIT 40 YEARS AGO; Second Hand Exposure: No; Do You Dip or Chew Tobacco: No; Hx Alcohol Use: No Hx Substance Use: No Preferred Language: Thai Communication Ability: Effective Rn First Assistant Required: No Beliefs That Will Affect Care: None Current Living Situation: Alone Feels Safe at Home: Yes Assistive Devices: None Allergies Allergies Allergy/AdvReac Type Severity Reaction Status Date / Time codeine Allergy Unknown Unknown Verified 02/04/23 15:14 adhesive AdvReac Intermediate PRURITIS Verified 02/04/23 15:14 Home Meds Home Medications Medication Instructions Recorded Confirmed anastrozole 1 mg tablet 1 mg PO QAM 04/03/19 06/01/24 biotin 10,000 mcg capsule 10,000 mcg PO QAM 04/03/19 06/01/24 calcium carbonate 600 mg-vitamin 1 cap PO QAM 04/03/19 06/01/24 D3 5 mcg (200 unit) capsule (Calcium 600 + D(3)) alendronate 70 mg tablet (Fosamax) 70 mg PO WK 04/08/19 06/01/24 acetaminophen 500 mg tablet 1,000 mg PO Q6H PRN Pain 06/11/20 06/01/24 (Tylenol Extra Strength) amoxicillin 500 mg tablet 2,000 mg PO DIRECTED PRN PRIOR 12/14/21 06/01/24 TO DENTAL WORK lorazepam 0.5 mg tablet 0.25 mg PO HS Sleep 12/14/21 06/01/24 gabapentin 300 mg capsule 300 mg PO HS 06/01/24 06/01/24 hydrochlorothiazide 12.5 mg capsule 12.5 mg PO QAM 06/01/24 06/01/24 lisinopril 40 mg tablet 40 mg PO QAM 06/01/24 06/01/24 psyllium seed (sugar) oral powder 1 tbsp PO QAM 06/01/24 06/01/24 (Metamucil [place] oral powder) Results & Data (ED) Vital Signs Vital Signs - 24 hr 06/01/24 12:45 06/01/24 12:45 06/01/24 12:47 Temperature Temperature Source Pulse Rate 117 H Pulse Rate [Apical] Pulse Rhythm Pulse Rhythm [Apical] Pulse Strength Pulse Strength [Apical] Respiratory Rate Respiratory Effort / Characteristics Non-Labored Spontaneous Respiratory Depth Normal Respiratory Pattern Regular Blood Pressure Blood Pressure [Right Arm] Blood Pressure Mean Blood Pressure Mean [Right Arm] Blood Pressure Position [Right Arm] Pulse Oximetry 95 Oxygen Delivery Method Room Air Room Air Sepsis Recent Fever Within 48 Hours Sepsis New/Unexplained Change in Mental Status Sepsis Action Taken by Nursing 06/01/24 12:51 06/01/24 12:53 06/01/24 14:10 Temperature 37.3 C 37.3 C Temperature Source Oral Oral Pulse Rate 106 H Pulse Rate [Apical] 109 H 102 H Pulse Rhythm Regular Pulse Rhythm [Apical] Regular Pulse Strength Normal Pulse Strength [Apical] Normal Respiratory Rate 17 18 21 Respiratory Effort / Characteristics Non-Labored Spontaneous Non-Labored Spontaneous Respiratory Depth Normal Normal Respiratory Pattern Regular Blood Pressure 176/90 H Blood Pressure [Right Arm] 176/90 H 170/86 H Blood Pressure Mean 118 Blood Pressure Mean [Right Arm] 118 114 Blood Pressure Position [Right Arm] Lying Pulse Oximetry 96 96 97 Oxygen Delivery Method Room Air Room Air Sepsis Recent Fever Within 48 Hours No Sepsis New/Unexplained Change in Mental Status No Sepsis Action Taken by Nursing No Action Required 06/01/24 15:13 06/01/24 16:28 06/01/24 17:44 Temperature Temperature Source Pulse Rate 108 H Pulse Rate [Apical] 98 H 98 H Pulse Rhythm Pulse Rhythm [Apical] Pulse Strength Pulse Strength [Apical] Respiratory Rate 22 16 Respiratory Effort / Characteristics Respiratory Depth Respiratory Pattern Blood Pressure Blood Pressure [Right Arm] 157/100 H 167/100 H Blood Pressure Mean Blood Pressure Mean [Right Arm] 119 122 Blood Pressure Position [Right Arm] Pulse Oximetry 97 Oxygen Delivery Method Room Air Sepsis Recent Fever Within 48 Hours Sepsis New/Unexplained Change in Mental Status Sepsis Action Taken by Nursing 06/01/24 17:55 Temperature Temperature Source Pulse Rate Pulse Rate [Apical] Pulse Rhythm Pulse Rhythm [Apical] Pulse Strength Pulse Strength [Apical] Respiratory Rate Respiratory Effort / Characteristics Respiratory Depth Respiratory Pattern Blood Pressure Blood Pressure [Right Arm] Blood Pressure Mean Blood Pressure Mean [Right Arm] Blood Pressure Position [Right Arm] Pulse Oximetry Oxygen Delivery Method Room Air Sepsis Recent Fever Within 48 Hours Sepsis New/Unexplained Change in Mental Status Sepsis Action Taken by Nursing Laboratory Data 06/01/24 12:45 06/01/24 12:45 Lab Results 06/01/24 06/01/24 Range/Units 12:45 14:13 WBC 13.64 H (4.8-10.8) K/ul RBC 4.71 (4.20-5.40) M/uL Hgb 12.9 (12.0-16.0) g/dl Hct 37.3 (37.0-47.0) % MCV 79.2 L (80.0-100.0) fL MCH 27.4 (25.0-34.0) pg MCHC 34.6 (32.0-36.0) g/dL RDW Std Deviation 37.3 (36.4-46.3) fL RDW Coeff of Clair 13.0 (11.5-14.5) % Plt Count 281 (130-400) K/uL MPV 10.6 (9.4-12.4) fL Immature Gran % (Auto) 0.4 % Neut % (Auto) 78.5 % Lymph % (Auto) 14.4 % [place] % (Auto) 5.6 % Eos % (Auto) 0.7 % Baso % (Auto) 0.4 % Neut # (Auto) 10.71 H (1.40-6.50) K/uL Lymph # (Auto) 1.97 (1.20-3.40) K/uL [place] # (Auto) 0.77 H (0.11-0.59) K/uL Eos # (Auto) 0.09 (0.00-0.50) K/uL Baso # (Auto) 0.05 (0.00-0.20) K/uL Immature Gran # (Auto) 0.05 (0.01-0.20) K/uL PT 11.0 (9.0-12.0) Seconds INR 1.0 (0.9-1.1) APTT 25 (21-31) Seconds PTT Ratio 0.9 D-Dimer 740 H* (0-500) ug/L FEU Sodium 138 (136-145) mmol/L Potassium 3.9 (3.5-5.1) mmol/L Chloride 103 (98-107) mmol/L Carbon Dioxide 24 (21-32) mmol/L Anion Gap 11 (3-11) BUN 22 (6-23) mg/dl Creatinine 0.80 (0.6-1.2) mg/dl Est Cr Clr Drug Dosing 48.4 ml/min Est GFR ( Amer) 80.7 ml/min Est GFR (Non-Af Amer) 69.6 ml/min BUN/Creatinine Ratio 27.5 H (10-20) Glucose 120 H (70-99(Fasting)) mg/dl Calcium 10.0 (8.6-10.3) mg/dl Magnesium 2.1 (1.7-2.4) mg/dl Total Bilirubin 0.5 (0.2-1.0) mg/dl AST 18 (13-39) U/L ALT 22 (7-52) U/L Alkaline Phosphatase 65 (34-104) U/L Troponin I High Sens 6.0 (0-14) pg/ml Total Protein 7.5 (6.0-8.3) gm/dl Albumin 4.7 (3.4-5.0) gm/dl Globulin 2.8 (2.5-4.0) gm/dl Albumin/Globulin Ratio 1.7 (0.9-2) TSH 1.691 (0.300-4.500) uIu/ml Adenovirus (PCR) Not Detected (NotDetected) B. pertussis DNA (PCR) Not Detected (NotDetected) B.parapertussis DNA PCR Not Detected (NotDetected) C. pneumoniae DNA (PCR) Not Detected (NotDetected) Coronavirus OC43 (PCR) Not Detected (NotDetected) Coronavirus HKU1 (PCR) Not Detected (NotDetected) Coronavirus 229E (PCR) Not Detected (NotDetected) SARS-CoV-2 (PCR) Not Detected (NotDetected) Coronavirus NL63 (PCR) Not Detected (NotDetected) Human Metapneumovir PCR Not Detected (NotDetected) Influenza Type A (PCR) Not Detected (NotDetected) Influenza Type B (PCR) Not Detected (NotDetected) M. pneumoniae (PCR) Not Detected (NotDetected) Parainfluenza 1 (PCR) Not Detected (NotDetected) Parainfluenza 2 (PCR) Not Detected (NotDetected) Parainfluenza 3 (PCR) Not Detected (NotDetected) Parainfluenza 4 (PCR) Not Detected (NotDetected) RSV (PCR) Not Detected (NotDetected) Entero/Rhino (PCR) Not Detected (NotDetected) Administered Medications Discontinued Medications Sodium Chloride (Nss) 500 mls @ 999 mls/hr IV .Q31M ONE Stop: 06/01/24 14:18 Last Infusion: 06/01/24 16:11 Dose: Infused Documented By: Admin: 06/01/24 14:11 Dose: 999 mls/hr Documented By: ROSENDO Ioversol (Optiray 320 125ml) 118 ml IV ONCE ONE Stop: 06/01/24 15:03 Last Admin: 06/01/24 15:02 Dose: 118 ml Documented By: MEJIA Metoprolol Succinate (Metoprolol Succ 25mg Ext Rel Tab) 25 mg PO NOW STA Stop: 06/01/24 17:20 Last Admin: 06/01/24 17:45 Dose: 25 mg Documented By: ANDREW Potassium Chloride (Potassium Chloride Crtab 20 Meq Tabcr) 20 meq PO NOW STA Stop: 06/01/24 16:44 Last Admin: 06/01/24 17:45 Dose: 20 meq Documented By: ANDREW Imaging Data Radiologist's Impression: Chest X-Ray 06/01/24 13:10 XR chest 1V portable HISTORY: Chest pain, nonspecific COMPARISON: Chest 11/01/2022. FINDINGS: No pneumothorax. No pleural effusions. No focal lung consolidations to suggest a pneumonia. No evidence for pulmonary edema. Severe S-shaped scoliosis again noted. The heart is normal in size. No acute fractures. Surgical clips within the right breast. Right apical pleural-parenchymal scarlike density remains unchanged. IMPRESSION: No significant change compared to the prior study. No acute process. ACT 112: Negative or not required by law. Electronically signed by: Evelio Ledezma M.D. 06/01/2024 1:48 PM Chest CTA 06/01/24 14:26 CHEST CTA for PULMONARY ARTERIES CT DOSE: 420.58 mGy.cm HISTORY: Shortness of breath. TECHNIQUE: Multiaxial CT images of the chest were performed following the intravenous administration of contrast to evaluate the pulmonary arteries. 3D/Maximal intensity projection images were also obtained. Sagittal and coronal reformations were also reviewed. A dose lowering technique was utilized adhering to the principles of ALARA. COMPARISON STUDY: Chest CT 08/08/2020. FINDINGS: Normal caliber thoracic aorta with no evidence for a dissection. The heart is normal in size. No filling defects within the pulmonary arteries to suggest a pulmonary embolus. Limited views of the upper abdomen demonstrate a normal liver and spleen. The visualized adrenal glands unremarkable. A left renal cyst is again noted. Cholelithiasis. There is a 1.3 cm right thyroid nodule. This does not meet CT criteria for follow-up. No pleural or pericardial effusions. Normal esophagus. No mediastinal or hilar lymphadenopathy. No acute fractures. The central airways are patent. Right apical scarlike densities remain stable. Mild peripheral interstitial thickening within the right lung base is again noted and is likely chronic. No new focal lung consolidations to suggest a pneumonia. No evidence for pulmonary edema. Severe S-shaped scoliosis again noted. IMPRESSION: 1. No evidence for a pulmonary embolus. 2. No new focal lung consolidations to suggest a pneumonia. 3. Stable scarlike densities within the right lung apex. 4. Severe S-shaped scoliosis. ACT 112: Negative or not required by law. Electronically signed by: Evelio Ledezma M.D. 06/01/2024 3:35 PM Discharge Plan Visit Data Chief Complaint: Shortness of Breath/Dyspnea Stated Complaint: SOB on exertion ED Provider: Chucky Apple Discharge Problem: Exertional dyspnea, Bigeminy, D-dimer, elevated Patient Disposition: Admitted As Inpatient Discharge Instructions Interventions: ED Discharge Assessment Last Done: 06/01/24 17:55 Prescriptions Prescriptions: No Action acetaminophen [Tylenol Extra Strength] 500 mg Tablet 1,000 mg PO Q6H PRN (Reason: Pain) anastrozole 1 mg Tablet 1 mg PO QAM biotin 10,000 mcg Capsule 10,000 mcg PO QAM Calcium 600 + D(3) 600 mg calcium- 200 unit Capsule 1 cap PO QAM alendronate [Fosamax] 70 mg Tablet 70 mg PO WK Rx Instructions: Sundays lorazepam 0.5 mg tablet 0.25 mg PO HS amoxicillin 500 mg tablet 2,000 mg PO DIRECTED PRN (Reason: PRIOR TO DENTAL WORK) Rx Instructions: TAKE 4 TABLETS ONE HOUR PRIOR TO DENTAL WORK gabapentin 300 mg capsule 300 mg PO HS hydrochlorothiazide 12.5 mg capsule 12.5 mg PO QAM lisinopril 40 mg tablet 40 mg PO QAM Metamucil [place] Powder 1 tbsp PO QAM Rx Instructions: MUST BE ORANGE OR CITRUS FLAVOR....TAKE WITH 8 OUNCES OF WATER
--- NOTE | 2024-06-01 13:49 | XRay Report ---
XR chest 1V portable HISTORY: Chest pain, nonspecific COMPARISON: Chest 11/01/2022. FINDINGS: No pneumothorax. No pleural effusions. No focal lung consolidations to suggest a pneumonia. No evidence for pulmonary edema. Severe S-shaped scoliosis again noted. The heart is normal in size. No acute fractures. Surgical clips within the right breast. Right apical pleural-parenchymal scarlik e density remains unchanged. IMPRESSION: No significant change compared to the prior study. No acute process. ACT 112: Negative or not required by law. Electronically signed by: Evelio Ledezma M.D. 06/01/2024 1:48 PM
[2024-06-01 14:01] LABS: Partial Thromboplastin Ratio 0.9; Partial Thromboplastin Time 25 Seconds (21-31)
[2024-06-01 14:02] LABS: D Dimer 740 ug/L FEU (0-500)
[2024-06-01] MEDS: SODIUM CHLORIDE 0.9% 500 ML IV ONE (14:11)
[2024-06-01 14:30] LABS: Thyroid Stimulating Hormone 1.691 uIu/ml (0.300-4.500)
[2024-06-01] MEDS: OPTIRAY 320 125ml IV ONE (15:02)
[2024-06-01 15:23] LABS: Adenovirus PCR Not Detected (NotDetected); Bordetella parapertussis PCR Not Detected (NotDetected); Bordetella pertussis PCR Not Detected (NotDetected); Chlamydia pneumoniae PCR Not Detected (NotDetected); Coronavirus 229E PCR Not Detected (NotDetected); Coronavirus CoV-2 (COVID19)PCR Not Detected (NotDetected); Coronavirus HKU1 PCR Not Detected (NotDetected); Coronavirus NL63 PCR Not Detected (NotDetected); Coronavirus OC43PCR Not Detected (NotDetected); Human Metapneumovirus PCR Not Detected (NotDetected); Influenza A PCR Not Detected (NotDetected); Influenza B PCR Not Detected (NotDetected); Mycoplasma pneumoniae PCR Not Detected (NotDetected); Parainfluenza Virus 1 PCR Not Detected (NotDetected); Parainfluenza Virus 2 PCR Not Detected (NotDetected); Parainfluenza Virus 3 PCR Not Detected (NotDetected); Parainfluenza Virus 4 PCR Not Detected (NotDetected); Respiratory Syncytial VirusPCR Not Detected (NotDetected); Rhinovirus/Enterovirus PCR Not Detected (NotDetected)
--- NOTE | 2024-06-01 15:37 | CT Scan Report ---
CHEST CTA for PULMONARY ARTERIES CT DOSE: 420.58 mGy.cm HISTORY: Shortness of breath. TECHNIQUE: Multiaxial CT images of the chest were performed following the intravenous administration of contrast to evaluate the pulmonary arteries. 3D/Maximal intensity projection images were also obta ined. Sagittal and coronal reformations were also reviewed. A dose lowering technique was utilized a dhering to the principles of ALARA. COMPARISON STUDY: Chest CT 08/08/2020. FINDINGS: Normal caliber thoracic aorta with no evidence for a dissection. The heart is normal in siz e. No filling defects within the pulmonary arteries to suggest a pulmonary embolus. Limited views of the upper abdomen demonstrate a normal liver and spleen. The visualized adrenal glands unremarkable. A left renal cyst is again noted. Cholelithiasis. There is a 1.3 cm right thyroid nodule. This does n ot meet CT criteria for follow-up. No pleural or pericardial effusions. Normal esophagus. No mediasti nal or hilar lymphadenopathy. No acute fractures. The central airways are patent. Right apical scarli ke densities remain stable. Mild peripheral interstitial thickening within the right lung base is aga in noted and is likely chronic. No new focal lung consolidations to suggest a pneumonia. No evidence for pulmonary edema. Severe S-shaped scoliosis again noted. IMPRESSION: 1. No evidence for a pulmonary embolus. 2. No new focal lung consolidations to suggest a pneumonia. 3. Stable scarlike densities within the right lung apex. 4. Severe S-shaped scoliosis. ACT 112: Negative or not required by law. Electronically signed by: Evelio Ledezma M.D. 06/01/2024 3:35 PM
--- NOTE | 2024-06-01 16:42 | History & Physical Report ---
Date of Service June 01, 2024 Assessment & Plan (1) LAWSON (dyspnea on exertion): Plan: Admit to the PCU on telemetry Currently stable and asymptomatic at rest Presented to the ED via EMS due to significant dyspnea on exertion daily while walking up her home steps approximately 24 hours ago with recurrent episodes Patient's initial workup while in the ED was significant for frequent episodes of bigeminy and trigeminy but was without other acute findings Initial high-sensitivity troponin, potassium, and magnesium are within normal limits Patient appears to to have PVCs on her ED to 11/01/22 but frequency appears increased today For now we will start metoprolol succinate 25 mg daily with first dose now, monitor for improvement with starting beta-rhona Repeat second high-sensitivity troponin and continue to monitor in telemetry Obtain TTE and place cardiology consult for further evaluation tomorrow SQ Lovenox for DVT prophylaxis Heart healthy diet AM CBC, CMP, mag, PT/INR (2) Symptomatic premature ventricular contractions: Plan: See dyspnea exertion (3) Chronic hypertension: Plan: Has remained stable since arrival Will continue home lisinopril but hold home hydrochlorothiazide for now while we start her on metoprolol Patient may need to adjust her dose of lisinopril or hydrochlorothiazide based on response to metoprolol Plan The patient was discussed with Dr. Trejo at time of the admission History of Present Illness Chief Complaint: LAWSON, HTN Primary Care Provider: Vega House MD Aliya is an 78-year-old female with a past medical history significant for hypertension, breast cancer s/p lumpectomy x2 in 2009 and 2012, s/p chemo and XRT, HTN, s/p left hip fracture and fixation in April 2019, severe thoracic scoliosis s/p surgery in the 1950s at age 10, and anxiety who who presented to [facility] ED on 06/01/24 via EMS due to approximately 48 hours of pr ogressive dyspnea on exertion. Patient was noted to be tachycardic at times while in the ED with heart rate in the low 100s to 110s but was otherwise stable. Labs were significant for D-dimer of 740, potassium of 3.9, mag of 2.1, initial high-sensitivity troponin within normal limits, TSH within normal limits, and full respiratory bio fire negative. Chest x-ray and CT of the chest with PE protocol read as negative for acute findings. The ED explained that the patient was experiencing frequent bigeminy and trigeminy on telemetry since arrival. The patient was given 500 mg NSS in the ED. We are asked to admit the patient for ongoing monitoring and treatment of her symptomatic arrhythmias. Patient was sitting in bed no acute distress at time of exam. She explains that she had been in her normal state of health when she started to experience significant dyspnea on exertion while going up her 13 steps between her first and second floors approximately 24 hours ago. States that her only bathroom is on the second floor when she goes up and down her steps multiple times a day normally without issue. States that she has not experienced this significant dyspnea on exertion going up her steps in the past. Since symptoms began yesterday she has been having to take significant more time to go up her steps to prevent symptoms from progressing. Does not notice the same symptoms while ambulating in her home and was able to go to the grocery store this a.m. without issue. No recent fever/chills, chest pain, cough, hemoptysis, nausea/vomiting, lightheadedness/dizziness, abdominal pain, dysuria/hematuria, melena, lower extremity swelling, or recent trauma. Denies a previous history of cardiac disease herself. When asked, states that her father suddenly of an DE at the age of 72, her mother from congestive heart failure at the age of 96. She has been asymptomatic since arrival to the hospital as she has been at rest. Confirms that she is a DNR/DNI. Please refer to Dr. Trejo's attestation for any changes to the treatment plan Allergies Allergy/AdvReac Type Severity Reaction Status Date / Time codeine Allergy Unknown Unknown Verified 02/04/23 15:14 amlodipine AdvReac Severe Verified 06/01/24 19:34 adhesive AdvReac Intermediate PRURITIS Verified 02/04/23 15:14 Home Medications Medication Instructions Recorded Confirmed Type anastrozole 1 mg tablet 1 mg PO QAM 04/03/19 06/01/24 History biotin 10,000 mcg capsule 10,000 mcg PO QAM 04/03/19 06/01/24 History calcium carbonate 600 mg-vitamin 1 cap PO QAM 04/03/19 06/01/24 History D3 5 mcg (200 unit) capsule (Calcium 600 + D(3)) alendronate 70 mg tablet (Fosamax) 70 mg PO WK 04/08/19 06/01/24 History acetaminophen 500 mg tablet 1,000 mg PO Q6H PRN Pain 06/11/20 06/01/24 History (Tylenol Extra Strength) amoxicillin 500 mg tablet 2,000 mg PO DIRECTED PRN PRIOR 12/14/21 06/01/24 History TO DENTAL WORK lorazepam 0.5 mg tablet 0.25 mg PO HS Sleep 12/14/21 06/01/24 History gabapentin 300 mg capsule 300 mg PO HS 06/01/24 06/01/24 History hydrochlorothiazide 12.5 mg capsule 12.5 mg PO QAM 06/01/24 06/01/24 History lisinopril 40 mg tablet 40 mg PO QAM 06/01/24 06/01/24 History psyllium seed (sugar) oral powder 1 tbsp PO QAM 06/01/24 06/01/24 History (Metamucil [place] oral powder) Past Med/Surg History Problem List (Updated 06/01/24 @ 18:09 by Chucky Apple DO) D-dimer, elevated (Acute) Bigeminy (Acute) Exertional dyspnea (Acute) Symptomatic premature ventricular contractions LAWSON (dyspnea on exertion) Lung cyst Chronic hypertension Multinodular goiter RLL pneumonia Microscopic hematuria Renal lesion Acid reflux Hypokalemia Pneumonia (Acute) Constipation Cavitary lesion of lung Trochanteric bursitis of left hip History of total left hip arthroplasty H/O total knee replacement Encounter for pre-operative examination Bilateral breast cancer (~04/2013) Breast cancer (Chronic ~04/2013) Malignant neoplasm of lower-outer quadrant of female breast (Acute 11/16/09) "Invasive ductal carcinoma left breast Status post lumpectomy and sentinel lymph node biopsy pathologic stage [id number] Estrogen receptor positive progesterone receptor positive HER-2/roxanne negative Status post completion of radiation therapy 03/10/2010 received 6120 cGy Treatment with tamoxifen " Sinus tachycardia (Chronic ~10/2013) Medical History Acid reflux Anxiety Constipation History of bilateral breast cancer History of breast cancer History of melanoma HTN (hypertension) Internal hemorrhoid Microscopic hematuria Osteoarthritis Renal lesion Scoliosis Surgical History H/O wisdom tooth extraction History of cataract surgery History of colonoscopy History of dilatation and curettage History of left breast biopsy History of lumpectomy of left breast History of lumpectomy of right breast History of melanoma excision History of removal of cyst History of right breast biopsy History of spinal fusion History of tonsillectomy and adenoidectomy History of tooth extraction History of tubal ligation Social History Smoking Status: Former smoker Tobacco Type: Cigarettes Cigarettes Per Day: QUIT 40 YEARS AGO; Second Hand Exposure: No; Do You Dip or Chew Tobacco: No; Hx Alcohol Use: No Hx Substance Use: No Preferred Language: Lao Communication Ability: Effective Radio Technician Required: No Beliefs That Will Affect Care: None Current Living Situation: Alone Other Information That Helps Us Care for You: No Feels Safe at Home: Yes Safety Concerns: Feels Safe At This Time Assistive Devices: None, Glasses and Hearing Aid - Bilateral Physical Exam Physical Exam: Physical Exam: General: In no acute distress, stated age, well-nourished, good hygiene HEENT: Normocephalic, atraumatic, no scleral icterus, pupils around round, symmetrical, and reactive to light, moist mucus membranes, NO JVD, trachea midline, no thyromegaly Chest/Pulm: No respiratory distress, symmetrical chest expansion, clear b reath sounds throughout Cardiac: Regular rate, irregular rhythm, no murmurs noted Abdomen: Negative for ascites and bruising, normoactive bowel sounds, soft, non-tender to palpation throughout Musculoskeletal: Symmetrical and without signs of acute trauma, upper and lower extremities with full ROM, no atrophy, spasticity, or flaccidity Extremities: Radial, dorsalis pedis, and posterior tibial pulses are intact and symmetrical, no edema noted in the BL LE's Skin: Warm, dry, no rashes , lesions, or scars noted Neuro: Alert and oriented to person, place, month, year, and president, no focal defects, no tremors noted Psych: No acute distress, calm and cooperative during the exam Results & Data Results & Data Vital Signs (Past 12 Hours) Vital Signs Temp Pulse Pulse Resp BP BP Pulse Ox 06/01/24 16:28 98 H 22 157/100 H 97 06/01/24 15:13 108 H 06/01/24 14:10 102 H 21 170/86 H 97 06/01/24 12:53 37.3 C 106 H 18 176/90 H 96 06/01/24 12:51 37.3 C 109 H 17 176/90 H 96 06/01/24 12:47 117 H 06/01/24 12:45 95 06/01/24 12:45 O2 Del Method 06/01/24 16:28 Room Air 06/01/24 15:13 06/01/24 14:10 06/01/24 12:53 Room Air 06/01/24 12:51 Room Air 06/01/24 12:47 06/01/24 12:45 Room Air 06/01/24 12:45 Room Air Laboratory Results Abnormal lab results 06/01/24 Range/Units 12:45 WBC 13.64 H (4.8-10.8) K/ul MCV 79.2 L (80.0-100.0) fL Neut # (Auto) 10.71 H (1.40-6.50) K/uL [place] # (Auto) 0.77 H (0.11-0.59) K/uL D-Dimer 740 H* (0-500) ug/L FEU BUN/Creatinine Ratio 27.5 H (10-20) Glucose 120 H (70-99(Fasting)) mg/dl Diagnostic Findings Chest X-Ray 06/01/24 13:10 XR chest 1V portable HISTORY: Chest pain, nonspecific COMPARISON: Chest 11/01/2022. FINDINGS: No pneumothorax. No pleural effusions. No focal lung consolidations to suggest a pneumonia. No evidence for pulmonary edema. Severe S-shaped scoliosis again noted. The heart is normal in size. No acute fractures. Surgical clips within the right breast. Right apical pleural-parenchymal scarlike density remains unchanged. IMPRESSION: No significant change compared to the prior study. No acute process. ACT 112: Negative or not required by law. Electronically signed by: Evelio Ledezma M.D. 06/01/2024 1:48 PM Chest CTA 06/01/24 14:26 CHEST CTA for PULMONARY ARTERIES CT DOSE: 420.58 mGy.cm HISTORY: Shortness of breath. TECHNIQUE: Multiaxial CT images of the chest were performed following the intravenous administration of contrast to evaluate the pulmonary arteries. 3D/Maximal intensity projection images were also obtained. Sagittal and coronal reformations were also reviewed. A dose lowering technique was utilized adhering to the principles of ALARA. COMPARISON STUDY: Chest CT 08/08/2020. FINDINGS: Normal caliber thoracic aorta with no evidence for a dissection. The heart is normal in size. No filling defects within the pulmonary arteries to suggest a pulmonary embolus. Limited views of the upper abdomen demonstrate a normal liver and spleen. The visualized adrenal glands unremarkable. A left renal cyst is again noted. Cholelithiasis. There is a 1.3 cm right thyroid nodule. This does not meet CT criteria for follow-up. No pleural or pericardial effusions. Normal esophagus. No mediastinal or hilar lymphadenopathy. No acute fractures. The central airways are patent. Right apical scarlike densities remain stable. Mild peripheral interstitial thickening within the right lung base is again noted and is likely chronic. No new focal lung consolidations to suggest a pneumonia. No evidence for pulmonary edema. Severe S-shaped scoliosis again noted. IMPRESSION: 1. No evidence for a pulmonary embolus. 2. No new focal lung consolidations to suggest a pneumonia. 3. Stable scarlike densities within the right lung apex. 4. Severe S-shaped scoliosis. ACT 112: Negative or not required by law. Electronically signed by: Evelio Ledezma M.D. 06/01/2024 3:35 PM ECG Additional Comments: Sinus tachycardia with frequent premature ventricular complexes, biatrial enlargement, previous septal infarct Code Status & VTE Plan Code Status DNR/DNI VTE Prophylaxis Plan VTE Prophylaxis will be ordered: Yes Supervising Physician Co-Signing Physician Notes Patient seen and examined, chart reviewed, case discussed with Santy Bowles PA-C and I agree with the assessment and plan as above except as otherwise noted Labs and images reviewed 78-year-old female history of hypertension, breast cancer, chemo and radiation, scoliosis with surgical intervention as a child from anxiety who presents with progressive dyspnea on exertion. D-dimer was elevated however CTA is clear. Troponin is normal. Laboratory shows bigeminy and trigeminy? Poorly tolerated dysrhythmia. Started on beta-rhona. Normotensive, she is not tachycardic at bedside. She reports she cannot have amlodpine, had severe lightheadedness and leg swelling. Nondistressed at bedside following transfer to floor. Agree with above. PG Care Time/CCT Total # of Minutes Spent Total Time Spent with Patient: Total time spent is greater than 50% in coordination of care (as documented) at patient's floor/unit and/or counseling patient: C[place] [address] INT INP/OBS CARE 2/55MIN Patient Type Established Medical Decision Making Moderate Complexity Diagnoses LAWSON (dyspnea on exertion) R06.09 Symptomatic premature ventricular contractions I49.3 Chronic hypertension I10
[2024-06-01 16:57] LABS: Magnesium 2.1 mg/dl (1.7-2.4)
[2024-06-01] MEDS: POTASSIUM CHLORIDE CRTAB 20 MEQ TABCR PO STA (17:45)
[2024-06-01] MEDS: METOPROLOL SUCC 25MG EXT REL TAB PO STA (17:45)
[2024-06-01] MEDS: LORazepam 0.5 MG TAB PO SCH (20:29)
[2024-06-01] MEDS: GABAPENTIN 300 MG CAP PO SCH (20:29)
[2024-06-01] MEDS: ENOXAPARIN INJ 40 MG/0.4 ML SYR SQ SCH (20:30)
--- NOTE | 2024-06-01 21:34 | Electrocardiogram Report ---
Test Reason : Blood Pressure : */* mmHG Vent. Rate : 116 BPM Atrial Rate : 116 BPM P-R Int : 154 ms QRS Dur : 86 ms QT Int : 336 ms P-R-T Axes : 72 8 68 degrees QTcB Int : 467 ms Sinus tachycardia with frequent Premature ventricular complexes Biatrial enlargement Nonspecific ST abnormality Abnormal ECG When compared with ECG of 01-Nov-2022 14:19, Questionable change in initial forces of Septal leads Confirmed by Sourav Herzog ([id number]) on 06/01/2024 9:34:31 PM Referred By: Confirmed By: Sourav Herzog
[2024-06-02] MEDS: PSYLLIUM or GUAR GUM FIBER 4GM PACKET PO SCH (07:24)
[2024-06-02 07:36] LABS: Basophils # (auto) 0.03 K/uL (0.00-0.20); Basophils % (auto) 0.4 %; Eosinophils # (auto) 0.12 K/uL (0.00-0.50); Eosinophils % (auto) 1.7 %; Hematocrit (blood only) 36.7 % (37.0-47.0); Hemoglobin 12.2 g/dl (12.0-16.0); Immature Granulocytes # (auto) 0.02 K/uL (0.01-0.20); Immature Granulocytes % (auto) 0.3 %; Lymphocytes # (auto) 2.55 K/uL (1.20-3.40); Lymphocytes % (auto) 35.3 %; Mean Corpuscular Hemoglobin 26.8 pg (25.0-34.0); Mean Corpuscular Hgb Conc 33.2 g/dL (32.0-36.0); Mean Corpuscular Volume 80.7 fL (80.0-100.0); Mean Platelet Volume 10.5 fL (9.4-12.4); Monocytes # (auto) 0.62 K/uL (0.11-0.59); Monocytes % (auto) 8.6 %; Neutrophils # (auto) 3.89 K/uL (1.40-6.50); Neutrophils % (auto) 53.7 %; Platelet Count 259 K/uL (130-400); RDW Coefficient of Variation 13.2 % (11.5-14.5); RDW Standard Deviation 38.6 fL (36.4-46.3); Red Blood Count 4.55 M/uL (4.20-5.40); White Blood Count 7.23 K/ul (4.8-10.8)
[2024-06-02 07:54] LABS: BUN Creatinine Ratio 24.7 (10-20); Calcium 9.2 mg/dl (8.6-10.3); Creatinine Clr Calc Pharmacy 53.1 ml/min; Est GFR (African American) 90.2 ml/min; Est GFR (Non-African American) 77.8 ml/min; Magnesium 2.1 mg/dl (1.7-2.4)
[2024-06-02] MEDS: ANASTROZOLE 1 MG TAB PO SCH (08:14)
[2024-06-02] MEDS: METOPROLOL SUCC 25MG EXT REL TAB PO SCH (08:14)
[2024-06-02] MEDS: lisinopril 40 MG TAB PO SCH (08:14)
--- NOTE | 2024-06-02 17:33 | Hospitalist Progress Note ---
Date of Service June 02, 2024 Assessment & Plan (1) LAWSON (dyspnea on exertion): Plan: Presented to the ED via EMS due to significant dyspnea on exertion daily while walking up her home steps Patient's initial workup while in the ED was significant for frequent episodes of bigeminy and trigeminy but was without other acute findings high-sensitivity troponin, potassium, and magnesium are within normal limits Patient appears to to have PVCs on her ED to 11/01/22 but frequency appears increased Cont metoprolol succinate 25 mg daily, monitor for improvement with starting beta-rhona Continue to monitor in telemetry TTE results pending - Cards consulted. Awaiting recommendations SQ Lovenox for DVT prophylaxis Heart healthy diet (2) Symptomatic premature ventricular contractions: Plan: See dyspnea exertion (3) Chronic hypertension: Plan: Has remained stable since arrival Will continue home lisinopril but hold home hydrochlorothiazide for now while we start her on metoprolol Patient may need to adjust her dose of lisinopril or hydrochlorothiazide based on response to metoprolol Admission and Anticipated Discharge Date Admission Date: June 01, 2024 Subjective Pt feels well. No chest discomfort, SOB. Has not walked to know of she has LAWSON. Review of Systems Review of Systems: All systems reviewed & are unremarkable except as noted in Subjective Physical Exam Physical Exam: Gen: awake, conversant H: S1S2/RRR. No M/R/G Lungs: CTAB, normal effort Abd: Soft/NT/ND. No HSM Extremities: No edema Behavior: Cooperative, appropriate Results & Data Results & Data Vital Signs (Past 12 Hours) Vital Signs Temp Pulse Pulse Resp BP Pulse Ox O2 Del Method 06/02/24 15:54 37.0 C 81 18 141/80 H 97 Room Air 06/02/24 14:06 84 06/02/24 11:31 36.8 C 80 18 125/75 97 Room Air 06/02/24 07:59 36.4 C L 67 20 154/74 H 95 Room Air PG Care Time/CCT Total # of Minutes Spent Total Time Spent with Patient: Total time spent is greater than 50% in coordination of care (as documented) at patient's floor/unit and/or counseling patient: Coding Level of Care Code 17245 SUB INP/OBS CARE 235MIN Diagnoses LAWSON (dyspnea on exertion) R06.09 Symptomatic premature ventricular contractions I49.3 Chronic hypertension I10
--- NOTE | 2024-06-02 17:54 | XCELERA ---
[id number]
[2024-06-03 06:50] LABS: Basophils # (auto) 0.04 K/uL (0.00-0.20); Basophils % (auto) 0.5 %; Eosinophils # (auto) 0.16 K/uL (0.00-0.50); Eosinophils % (auto) 1.9 %; Hematocrit (blood only) 38.9 % (37.0-47.0); Hemoglobin 12.9 g/dl (12.0-16.0); Immature Granulocytes # (auto) 0.01 K/uL (0.01-0.20); Immature Granulocytes % (auto) 0.1 %; Lymphocytes # (auto) 2.97 K/uL (1.20-3.40); Lymphocytes % (auto) 35.9 %; Mean Corpuscular Hemoglobin 26.7 pg (25.0-34.0); Mean Corpuscular Hgb Conc 33.2 g/dL (32.0-36.0); Mean Corpuscular Volume 80.5 fL (80.0-100.0); Mean Platelet Volume 10.7 fL (9.4-12.4); Monocytes # (auto) 0.86 K/uL (0.11-0.59); Monocytes % (auto) 10.4 %; Neutrophils # (auto) 4.23 K/uL (1.40-6.50); Neutrophils % (auto) 51.2 %; Platelet Count 275 K/uL (130-400); RDW Coefficient of Variation 13.4 % (11.5-14.5); RDW Standard Deviation 39.2 fL (36.4-46.3); Red Blood Count 4.83 M/uL (4.20-5.40); White Blood Count 8.27 K/ul (4.8-10.8)
[2024-06-03 07:21] LABS: BUN Creatinine Ratio 27.1 (10-20); Calcium 9.4 mg/dl (8.6-10.3); Creatinine Clr Calc Pharmacy 40.4 ml/min; Est GFR (African American) 64.7 ml/min; Est GFR (Non-African American) 55.9 ml/min; Magnesium 2.4 mg/dl (1.7-2.4); Potassium 4.2 mmol/L (3.5-5.1)
[2024-06-03 08:23] VITALS: BP 135/76; PULSE 63; RESP 18; TEMP 98.1; O2SAT 99
--- NOTE | 2024-06-03 10:12 | Cardiology Consultation ---
Date of Consultation June 03, 2024 Assessment & Plan (1) D-dimer, elevated: (2) Bigeminy: (3) Exertional dyspnea: (4) Symptomatic premature ventricular contractions: Plan ok to start on BB. Follow up in the office. She is known to Dr. Daniel. Will follow up as outpatient. r/o for PA and PE. History of Present Illness Reason for Consultation: SOB Attending Physician: Naty Hampton MD History of Present Illness Aliya is an 78-year-old female with a past medical history significant for hypertension, breast cancer s/p lumpectomy x2 in 2009 and 2012, s/p chemo and XRT, HTN, s/p left hip fracture and fixation in April 2019, severe thoracic scoliosis s/p surgery in the 1950s at age 10, and anxiety who who presented to [facility] ED on 06/01/24 via EMS due to approximately 48 hours of progressive dyspnea on exertion. Patient was noted to be tachycardic at times while in the ED with heart rate in the low 100s to 110s but was otherwise stable. Labs were significant for D-dimer of 740, potassium of 3.9, mag of 2.1, initial high-sensitivity troponin within normal limits, TSH within normal limits, and full respiratory bio fire negative. Chest x-ray and CT of the chest with PE protocol read as negative for acute findings. The ED explained that the patient was experiencing frequent bigeminy and trigeminy on telemetry since arrival. The patient was given 500 mg NSS in the ED. We are asked to admit the patient for ongoing monitoring and treatment of her symptomatic arrhythmias. Patient was sitting in bed no acute distress at time of exam. She explains that she had been in her normal state of health when she started to experience significant dyspnea on exertion while going up her 13 steps between her first and second floors approximately 24 hours ago. States that her only bathroom is on the second floor when she goes up and down her steps multiple times a day normally without issue. States that she has not experienced this significant dyspnea on exertion going up her steps in the past. Since symptoms began yesterday she has been having to take significant more time to go up her steps to prevent symptoms from progressing. Does not notice the same symptoms while ambulating in her home and was able to go to the grocery store this a.m. without issue. Allergies Allergy/AdvReac Type Severity Reaction Status Date / Time codeine Allergy Unknown Unknown Verified 02/04/23 15:14 amlodipine AdvReac Severe Verified 06/01/24 19:34 adhesive AdvReac Intermediate PRURITIS Verified 02/04/23 15:14 Home Medications Medication Instructions Recorded Confirmed Type anastrozole 1 mg tablet 1 mg PO QAM 04/03/19 06/01/24 History biotin 10,000 mcg capsule 10,000 mcg PO QAM 04/03/19 06/01/24 History calcium carbonate 600 mg-vitamin 1 cap PO QAM 04/03/19 06/01/24 History D3 5 mcg (200 unit) capsule (Calcium 600 + D(3)) alendronate 70 mg tablet (Fosamax) 70 mg PO WK 04/08/19 06/01/24 History acetaminophen 500 mg tablet 1,000 mg PO Q6H PRN Pain 06/11/20 06/01/24 History (Tylenol Extra Strength) amoxicillin 500 mg tablet 2,000 mg PO DIRECTED PRN PRIOR 12/14/21 06/01/24 History TO DENTAL WORK lorazepam 0.5 mg tablet 0.25 mg PO HS Sleep 12/14/21 06/01/24 History gabapentin 300 mg capsule 300 mg PO HS 06/01/24 06/01/24 History lisinopril 40 mg tablet 40 mg PO QAM 06/01/24 06/01/24 History psyllium seed (sugar) oral powder 1 tbsp PO QAM 06/01/24 06/01/24 History (Metamucil [place] oral powder) metoprolol succinate 25 mg 25 mg PO QAM 1 month #30 tabs 06/03/24 Rx tablet,extended release 24 hr Patient History Medical History History of bilateral breast cancer Internal hemorrhoid Scoliosis Thoracic, s/p corrective surgery in 1950s Osteoarthritis History of melanoma Anxiety HTN (hypertension) History of breast cancer S/P LUMPECTOMY X 2. + CHEMO/RADTION Surgical History History of cataract surgery History of tooth extraction H/O wisdom tooth extraction History of tonsillectomy and adenoidectomy History of right breast biopsy History of left breast biopsy History of removal of cyst RT ELBOW History of tubal ligation History of dilatation and curettage History of spinal fusion LUMBAR/THORACIC. 1950's, to correct scoliosis. History of colonoscopy History of melanoma excision History of lumpectomy of right breast History of lumpectomy of left breast Social History Smoking Status: Former smoker Tobacco Type: Cigarettes Cigarettes Per Day: QUIT 40 YEARS AGO; Second Hand Exposure: No; Do You Dip or Chew Tobacco: No; Hx Alcohol Use: No Hx Substance Use: No Preferred Language: Kazakh Communication Ability: Effective Admitting Officer Required: No Beliefs That Will Affect Care: None Current Living Situation: Alone Feels Safe at Home: Yes Assistive Devices: Walker Review of Systems Review of Systems: All systems reviewed & are unremarkable except as noted in HPI & below Physical Exam Respiratory: normal respiratory effort, lungs clear to auscultation Cardiovascular: RRR, no murmur, no edema Gastrointestinal (Abdomen): normal bowel sounds, soft, nontender, no hepatosplenomegaly Results & Data Vital Signs (Past 12 Hours) Vital Signs Temp Pulse Pulse Resp BP Pulse Ox O2 Del Method 06/03/24 08:22 36.7 C 63 18 135/76 99 Room Air 06/03/24 07:44 77 06/02/24 23:33 36.6 C 85 12 115/61 96 Room Air 06/02/24 23:02 81 Laboratory Results Abnormal lab results 06/03/24 Range/Units 05:38 [place] # (Auto) 0.86 H (0.11-0.59) K/uL BUN 26 H (6-23) mg/dl BUN/Creatinine Ratio 27.1 H (10-20)
--- NOTE | 2024-06-03 10:59 | Discharge Summary ---
Date of Service June 03, 2024 Admission HPI Per Admitting Provider Aliya is an 78-year-old female with a past medical history significant for hypertension, breast cancer s/p lumpectomy x2 in 2009 and 2012, s/p chemo and XRT, HTN, s/p left hip fracture and fixation in April 2019, severe thoracic scoliosis s/p surgery in the 1950s at age 10, and anxiety who who presented to [facility] ED on 06/01/24 via EMS due to approximately 48 hours of progressive dyspnea on exertion. Patient was noted to be tachycardic at times while in the ED with heart rate in the low 100s to 110s but was otherwise stable. Labs were significant for D-dimer of 740, potassium of 3.9, mag of 2.1, initial high-sensitivity troponin within normal limits, TSH within normal limits, and full respiratory bio fire negative. Chest x-ray and CT of the chest with PE protocol read as negative for acute findings. The ED explained that the patient was experiencing frequent bigeminy and trigeminy on telemetry since arrival. The patient was given 500 mg NSS in the ED. We are asked to admit the patient for ongoing monitoring and treatment of her symptomatic arrhythmias. Patient was sitting in bed no acute distress at time of exam. She explains that she had been in her normal state of health when she started to experience significant dyspnea on exertion while going up her 13 steps between her first and second floors approximately 24 hours ago. States that her only bathroom is on the second floor when she goes up and down her steps multiple times a day normally without issue. States that she has not experienced this significant dyspnea on exertion going up her steps in the past. Since symptoms began yesterday she has been having to take significant more time to go up her steps to prevent symptoms from progressing. Does not notice the same symptoms while ambulating in her home and was able to go to the grocery store this a.m. without issue. No recent fever/chills, chest pain, cough, hemoptysis, nausea/vomiting, lightheadedness/dizziness, abdominal pain, dysuria/hematuria, melena, lower extremity swelling, or recent trauma. Denies a previous history of cardiac disease herself. When asked, states that her father suddenly of an PR at the age of 72, her mother from congestive heart failure at the age of 96. She has been asymptomatic since arrival to the hospital as she has been at rest. Confirms that she is a DNR/DNI. Please refer to Dr. Trejo's attestation for any changes to the treatment plan Admission Exam Per Admitting Provider General: In no acute distress, stated age, well-nourished, good hygiene HEENT: Normocephalic, atraumatic, no scleral icterus, pupils around round, symmetrical, and reactive to light, moist mucus membranes, NO JVD, trachea midline, no thyromegaly Chest/Pulm: No respiratory distress, symmetrical chest expansion, clear breath sounds throughout Cardiac: Regular rate, irregular rhythm, no murmurs noted Abdomen: Negative for ascites and bruising, normoactive bowel sounds, soft, non- tender to palpation throughout Musculoskeletal: Symmetrical and without signs of acute trauma, upper and lower extremities with full ROM, no atrophy, spasticity, or flaccidity Extremities: Radial, dorsalis pedis, and posterior tibial pulses are intact and symmetrical, no edema noted in the BL LE's Skin: Warm, dry, no rashes , lesions, or scars noted Neuro: Alert and oriented to person, place, month, year, and president, no focal defects, no tremors noted Psych: No acute distress, calm and cooperative during the exam Principal Diagnosis Dyspnea on exertion due to frequent PVCs, bigeminy/trigeminy. Started on metoprolol Discharge Exam General: Awake, conversant Heart: S1, S2/regular rate and rhythm, no murmur rubs or gallops Lungs: Clear to auscultation bilaterally. Normal effort Abdomen: Soft/nontender/nondistended. No hepatosplenomegaly Extremities: No clubbing/cyanosis. No edema Behavior: Appropriate, cooperative Discharge Data Allergies Allergy/AdvReac Type Severity Reaction Status Date / Time codeine Allergy Unknown Unknown Verified 02/04/23 15:14 amlodipine AdvReac Severe Verified 06/01/24 19:34 adhesive AdvReac Intermediate PRURITIS Verified 02/04/23 15:14 Consultations 06/01/24 16:27 ED Decision to Admit Stat 06/01/24 17:17 Consult Cardiology Routine Ordered Studies 06/01/24 14:26 CT angio chest PE protocol Stat Hospital Course (1) LAWSON (dyspnea on exertion): Presented to the ED via EMS due to significant dyspnea on exertion daily while walking up her home steps Patient's initial workup while in the ED was significant for frequent episodes of bigeminy and trigeminy but was without other acute findings high-sensitivity troponin, potassium, and magnesium are within normal limits Patient appears to to have PVCs on her ED to 11/01/22 but frequency appears increased Patient was started on metoprolol succinate 25 mg daily, with clinical improvement Patient feels remarkably better today She ambulated down the hallway without any symptoms. TTE unremarkable Cardiology on board. Recommended continuing the metoprolol that was started Cardiology cleared the patient for discharge (2) Symptomatic premature ventricular contractions: See dyspnea exertion (3) Chronic hypertension: Has remained stable since arrival Will continue home lisinopril but discontinue home hydrochlorothiazide to give room for the newly started metoprolol Total Time Total Time Spent Total Time Spent (In Minutes): 35 Discharge Plan Discharge Items Patient Disposition: Home - Self-Care Reason For Visit: LAWSON, BIGEMINY/TRIGEMINY Discharge Diagnosis: Dyspnea on exertion due to frequent PVCs, bigeminy/trigeminy. Started on metoprolol Activity: Resume your previous activity Non-emergency contact: Primary Care Provider Call non-emergency contact if: you have any medication questions and your symptoms worsen Follow-up/Referrals: [facility] MD [Primary Care Provider] - Diet: Heart Healthy Addtl Attending Provider Instructions: Advised to follow-up with PCP in 1 week Pending Studies at Discharge: No Stand-Alone Forms: [facility] Medications and DC Order Prescriptions: New metoprolol succinate 25 mg Tablet Extended Release 24 Hr 25 mg PO QAM 30 Days Qty: 30 0RF Continued acetaminophen [Tylenol Extra Strength] 500 mg Tablet 1,000 mg PO Q6H PRN (Reason: Pain) anastrozole 1 mg Tablet 1 mg PO QAM biotin 10,000 mcg Capsule 10,000 mcg PO QAM Calcium 600 + D(3) 600 mg calcium- 200 unit Capsule 1 cap PO QAM alendronate [Fosamax] 70 mg Tablet 70 mg PO WK Rx Instructions: Sundays lorazepam 0.5 mg tablet 0.25 mg PO HS amoxicillin 500 mg tablet 2,000 mg PO DIRECTED PRN (Reason: PRIOR TO DENTAL WORK) Rx Instructions: TAKE 4 TABLETS ONE HOUR PRIOR TO DENTAL WORK gabapentin 300 mg capsule 300 mg PO HS lisinopril 40 mg tablet 40 mg PO QAM Metamucil [place] Powder 1 tbsp PO QAM Rx Instructions: MUST BE ORANGE OR [place] FLAVOR....TAKE WITH 8 OUNCES OF WATER Discontinued hydrochlorothiazide 12.5 mg capsule 12.5 mg PO QAM Discharge Orders: Discharge Order (Routine); Ordered 06/03/24 Ordered By: Naty Hampton Admission Data Admit Date/Time: 06/01/24 16:42 Attending Provider: Naty Hampton Admit Provider: Santy Bowles Primary Care Provider: [facility] Other Providers: Yunior Trejo; Arnoldo Daniel Other Interventions: Discharge Summary Assessment (RN) Last Done: 06/03/24 10:16
== END 2024-06-03 12:32 | disposition home or self-care (01) ==
LOC: ED 12:34 → 2E 12:34 → SUATTDRO 16:42 → 2E 17:55
DX: R79.1 Abnormal coagulation profile; D72.829 Elevated white blood cell count, unspecified; Z85.3 Personal history of malignant neoplasm of breast; Z82.49 Family history of ischemic heart disease and other diseases of the circulatory system; Z88.6 Allergy status to analgesic agent; Z91.09 Other allergy status, other than to drugs and biological substances; Z87.891 Personal history of nicotine dependence; Z79.899 Other long term (current) drug therapy; I10 Essential (primary) hypertension; R06.09 Other forms of dyspnea; M41.9 Scoliosis, unspecified; I49.3 Ventricular premature depolarization